=== PATIENT | female | born 1935 | race Caucasian/White ===

== ENCOUNTER → 2017-10-16 12:48 | Outpatient (CLI) | payer MEDICARE, MEDICAID, SELFPAY ==
--- NOTE | 2017-10-16 | DI.RAD.S_ITS ---
PROCEDURE: XR THORACIC SPINE 2V INDICATIONS: hx of breast cancer, upper back pain TECHNIQUE: 2 views of the thoracic spine were acquired. COMPARISON: None. FINDINGS: Bones: No fracture or focal osseous destruction. There is diffuse endplate sclerosis and degenerative spurring. Multilevel facet arthropathy. Soft tissues: No paravertebral stripe thickening. IMPRESSION: No fracture. Diffuse degenerative changes as above. Dictated by: Willie Scott M.D. on 10/16/2017 at 14:14 Approved by: Willie Scott M.D. on 10/16/2017 at 14:15
== END ==
PROVIDERS: Family Provider Physician Assistant; PCP Physician Assistant; Visit Provider Internal Medicine
DX: M47.814 Spondylosis without myelopathy or radiculopathy, thoracic region (principal); M54.6 Pain in thoracic spine; Z85.3 Personal history of malignant neoplasm of breast
CPT/HCPCS: 72070

== ENCOUNTER → 2018-01-13 10:41 | Outpatient (CLI) | payer MEDICARE, MEDICAID, SELFPAY ==
--- NOTE | 2018-01-13 | DI.CT.S_ITS ---
PROCEDURE: CT HEAD/BRAIN W CON INDICATIONS: Malignant neoplasm of breast TECHNIQUE: 4.5 mm thick angled axial sections acquired from the foramen magnum to the vertex after the administration of intravenous contrast, with coronal and sagittal reformats. For radiation dose reduction, the following was used: automated exposure control, adjustment of mA and/or kV according to patient size. COMPARISON: [facility], CT, CT CHEST ABD PEL W CON, 01/13/2018, 12:02. FINDINGS: Image quality: Excellent. CSF Spaces: Basal cisterns are patent. No extra-axial fluid collections. Ventricles are normal in size and shape. Brain: No midline shift. No large intracranial bleeds. No enhancing masses can be seen. No abnormal intracranial enhancement. Humphreys-white interface appears normal. Skull and face: Calvarium and visualized facial bones appear intact, without suspicious lesions. Sinuses: Visualized sinuses and mastoids are clear. IMPRESSION: No masses or abnormal enhancement can be seen. Dictated by: Yaakov Woods M.D. on 01/13/2018 at 11:58 Approved by: Yaakov Woods M.D. on 01/13/2018 at 11:59
--- NOTE | 2018-01-13 | DI.CT.S_ITS ---
PROCEDURE: CT CHEST ABD PEL W CON INDICATIONS: Malignant neoplasm of breast TECHNIQUE: After the administration of oral and intravenous contrast, 5 mm thick sections acquired from the lung apices to the symphysis. 5 mm coronal and sagittal reformats were performed, with additional 7 mm coronal MIP reformats through the lungs. For radiation dose reduction, the following was used: automated exposure control, adjustment of mA and/or kV according to patient size. COMPARISON: [facility], CT, ABDOMEN/PELVIS WITH CONTRAST, 04/01/2017, 15:32. [facility], CT, PE STUDY (CTA CHEST), 04/01/2017, 15:32. FINDINGS: Image quality: Excellent. CHEST: Lungs and pleura: The previously seen nodular and spiculated mass within the right upper lobe posteriorly has increased slightly in size, measuring 28 mm diameter. There is a new subpleural nodule within the right upper lobe anteriorly measuring 10 mm diameter. Compressive atelectasis within the right lower lobe is present. Previously seen right lung base nodule is not seen on the current examination. Previously seen right middle lobe nodule is not seen on the current examination. Left lung is clear. There is a new moderate right pleural effusion. No pneumothorax. Central and peripheral airways appear patent and normal in caliber. Mediastinum: Heart size is normal. No pericardial effusion. No mediastinal or hilar adenopathy by size criteria. Thoracic aorta and central pulmonary arteries are normal in size. Esophagus is normal in caliber. No hiatal hernia. Chest wall: No axillary or supraclavicular adenopathy by size criteria. Thyroid gland is within normal limits. ABDOMEN: Solid organs: Liver is normal in size and enhancement. Gallbladder demonstrates calculi within its lumen, as before. Biliary system is non dilated. Pancreas enhances normally. Spleen is normal in size and enhancement. No adrenal nodules. Kidneys demonstrate normal size and enhancement, without hydronephrosis. Peritoneum and bowel: Bowel loops demonstrate normal wall thickness and caliber. No free fluid or air. Nodes and vessels: No retroperitoneal or mesenteric adenopathy by size criteria. Aorta and inferior vena cava are normal in size. Miscellaneous: No ventral hernias. PELVIS: Genitourinary: Bladder wall thickness is normal. Calcification within the anterior and posterior uterus is present, as before. Miscellaneous: No inguinal hernias or adenopathy. Bones: No change in in sclerotic foci within the T6 and T7 vertebral bodies. No change in small sclerotic foci within the inferior L2, superior L3, and inferior L3 end plates. No change in slightly expansile 25 mm lucency within the left intertrochanteric femur/femoral neck, which is indeterminate. No vertebral body compression fractures. IMPRESSION: 1. Progressive metastatic disease to the right upper lobe. 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 2. No evidence of metastatic disease to the soft tissues of the abdomen, nor pelvis. 3. No change in thoracolumbar spinal sclerotic foci, consistent with metastatic disease. 4. Possible lytic left femoral neck metastasis, which is at risk for pathologic fracture. This could be further assessed with MRI with and without intravenous contrast, if clinically indicated. Dictated by: Jonatan Browne M.D. on 01/13/2018 at 13:49 Approved by: Jonatan Browne M.D. on 01/13/2018 at 13:58
[2018-01-13 11:20] LABS: BUN Creatinine Ratio 21.4 (6-22); Blood Urea Nitrogen 15 mg/dL (7-17); Calcium 9.5 mg/dL (8.4-10.2); Carbon Dioxide 31 mmol/L (22-32); Chloride 101 mmol/L (98-107); Estimated Glomerular Filt Rate > 60.0 mL/min (>60); Glucose 102 mg/dL (80-110); HEMOLYSIS < 15 (0-50); Potassium 4.3 mmol/L (3.4-5.1); Sodium 139 mmol/L (137-145)
== END ==
PROVIDERS: Family Provider Physician Assistant; PCP Physician Assistant; Visit Provider Internal Medicine Medical Oncology
DX: C50.919 Malignant neoplasm of unspecified site of unspecified female breast (principal)
CPT/HCPCS: 36415; 70460; 71260; 74177; 80048; Q9967

== ENCOUNTER 2018-02-13 13:24 | Emergency (ER) | payer MEDICARE, MEDICAID, SELFPAY ==
[2018-02-13] VITALS (9 sets, daily range): BP systolic 118–144; BP diastolic 53–88; PULSE 66–75; RESP 14–22; TEMP 36.6; O2SAT 92–100
--- NOTE | 2018-02-13 13:54 | DI.RAD.S_ITS ---
PROCEDURE: XR CHEST 2V INDICATIONS: pain in chest, hard to breathe TECHNIQUE: 2 views of the chest were acquired. COMPARISON: [facility], CT, CT CHEST ABD PEL W CON, 01/13/2018, 12:02. FINDINGS: Surgical changes and devices: None. Lungs and pleura: Right lower lobe consolidation suspicious for pneumonia. Small moderate right pleural effusion is present. No pleural effusions or pneumothorax. Mediastinum: Mediastinal contours are normal. Heart size is normal. Bones and chest wall: No suspicious bony abnormalities. Soft tissues appear unremarkable. IMPRESSION: 1. Suspect right lower lobe pneumonia. 2. Small to moderate right pleural effusion. Dictated by: Amelie Soliman M.D. on 02/13/2018 at 15:30 Approved by: Amelie Soliman M.D. on 02/13/2018 at 15:31
--- NOTE | 2018-02-13 13:54 | ED.CHESTPAIN ---
HPI - Chest Pain General Chief Complaint: Chest Pain Stated Complaint: PAIN IN CHEST, HARD TO BREATHE Time Seen by Provider: 02/13/18 13:45 Source: patient Mode of arrival: ambulatory Limitations: language barrier (daughter here for interpretation) History of Present Illness HPI narrative: Patient is an 80-year-old Salvadorean-speaking elderly female complaining of chest pain. She is here with her daughter who is her director of optimization. She does have a history of breast cancer she is followed down [facility]. She had right-sided pleural effusion with thoracentesis recently. She fell a few days ago onto the grass on the right side and is complaining of more pain and discomfort. She has pain all over her back as well going down arm. No chest pain no shortness of breath no heart palpitations she has not had any fever. Related Data Home Medications Medication Instructions Recorded Confirmed capecitabine 2,000 mg PO DAILY 02/13/18 02/13/18 Previous Rx's Medication Instructions Recorded hydrocodone-acetaminophen [Huxley] 1 tab PO Q6H PRN #10 tab 02/13/18 Allergies Allergy/AdvReac Type Severity Reaction Status Date / Time Penicillins [PENICILLINS] Allergy Unknown Verified 02/13/18 14:16 Review of Systems Review of Systems All systems reviewed & are unremarkable except as noted in HPI and below Constitutional Denies chills, Denies fever(s), Denies lethargy and Denies weakness Cardiovascular Reports as per HPI Respiratory Reports as per HPI Gastrointestinal Gastrointestinal: Denies abdominal pain, Denies change in bowel habits, Denies diarrhea, Denies nausea and Denies vomiting Musculoskeletal Denies back pain, Denies muscle weakness, Denies numbness and Denies tingling Integumentary/Breasts Denies pruritus, Denies erythema, Denies rash and Denies wounds Neurologic Denies numbness, Denies tingling and Denies weakness PFSH Medical History Breast cancer (Acute) Social History Smoking Status: Never smoker alcohol intake: never substance use type: does not use Exam Initial Vital Signs Initial Vital Signs: Vital Signs Temperature 97.8 F 02/13/18 13:25 Pulse Rate 75 02/13/18 13:25 Respiratory Rate 20 02/13/18 13:25 Blood Pressure 144/88 H 02/13/18 13:25 Pulse Oximetry 100 02/13/18 13:25 GENERAL: Pleasant elderly female alert and oriented no acute distress HEENT: Head atraumatic,EOMI, pupils reactive, face symmetric, CARDIOVASCULAR: Regular rate and rhythm without murmurs, rubs or gallops. RESPIRATORY: Decreased breath sounds on right base is no wheezing rales or rhonchi no respiratory distress ABDOMEN: Soft, nontender. Normoactive bowel sounds all 4 quadrants. No guarding or rebound. BACK: Mild midline thoracic pain EXTREMITIES: Normal range of motion, no clubbing or edema. Neurovascularly intact NEUROLOGICAL: Alert and oriented x4.Normal gait and speech. Cranial nerves II through XII grossly intact. [Good [id number]-huil, good [id number], strength equal bilaterally, no dysarthria or aphasia, sensation in tact to soft touch bilaterally, no visual changes, no facial droop] SKIN: Warm, dry, no laceration, no petechiae, no rashes or lesions. Course Orders Ordered: ED Orders 02/13/18 13:54 XR chest 2V Stat 02/13/18 13:55 B Type Natriuretic Peptide Stat Complete Blood Count AUTO DIFF Stat Comprehensive Metabolic Panel Stat Lipase Stat Troponin & CK Cardiac Panel Stat 02/13/18 15:05 CT angio chest PE protocol Stat Discontinued Medications Sodium Chloride (Normal Saline 0.9%) 1,000 mls @ 150 mls/hr IV CONT MAC Last Admin: 02/13/18 14:18 Dose: 150 mls/hr Morphine Sulfate (Morphine) 2 mg IV NOW ONE Stop: 02/13/18 14:00 Last Admin: 02/13/18 14:18 Dose: 2 mg Vital Signs - 8 hr 02/13/18 13:25 02/13/18 13:45 02/13/18 14:27 Temperature 97.8 F Pulse Rate 75 71 72 Respiratory Rate 20 22 17 Blood Pressure 144/88 H Blood Pressure [Left Arm] 144/88 H 130/60 Pulse Oximetry 100 97 97 02/13/18 14:30 02/13/18 15:05 02/13/18 15:21 Temperature Pulse Rate 72 70 67 Respiratory Rate 18 22 18 Blood Pressure Blood Pressure [Left Arm] 129/66 133/60 133/60 Pulse Oximetry 95 95 92 02/13/18 15:53 02/13/18 16:17 02/13/18 16:30 Temperature Pulse Rate 68 66 73 Respiratory Rate 17 14 20 Blood Pressure Blood Pressure [Left Arm] 135/59 L 129/53 L 118/56 L Pulse Oximetry 97 94 97 MDM - Chest Pain Lab Data Attestation: I reviewed the patient's lab results. Result diagrams: 02/13/18 13:55 02/13/18 13:55 Lab Results 02/13/18 02/13/18 Range/Units 13:55 13:55 WBC 5.3 (4.5-11.0) X10^3/uL RBC 3.59 L (4.0-5.2) X10^6/uL Hgb 12.5 (12.0-16.0) g/dL Hct 36.5 (36-46) % MCV 101.6 H (80-100) fL MCH 34.8 H (26-34) PG MCHC 34.2 (30-36) % RDW 16.2 H (11.6-14.8) % Plt Count 152 (150-400) X10^3/uL Neut % (Auto) 66.7 (50-75) % Lymph % (Auto) 25.0 (25-40) % [place] % (Auto) 5.8 (3-14) % Eos % (Auto) 1.5 L (2-4) % Baso % (Auto) 1.0 (0-2) % Neut # (Auto) 3600 (0745-2860) /uL Sodium 141 (137-145) mmol/L Potassium 4.3 (3.4-5.1) mmol/L Chloride 105 (98-107) mmol/L Carbon Dioxide 27 (22-32) mmol/L BUN 17 (7-17) mg/dL Creatinine 0.70 (0.52-1.04) mg/dL Estimated GFR > 60.0 (>60) mL/min BUN/Creatinine Ratio 24.3 H (6-22) Glucose 124 H (80-110) mg/dL Calcium 9.3 (8.4-10.2) mg/dL Total Bilirubin 1.0 (0.2-1.3) mg/dL AST 22 (14-36) IU/L ALT 19 (9-52) IU/L Alkaline Phosphatase 65 (38-126) U/L Total Creatine Kinase 41 (30-135) U/L CK-MB (CK-2) TNP CK-MB (CK-2) Rel Index TNP Troponin I < 0.012 (0.01-0.034) ng/mL B-Natriuretic Peptide 71.8 (<100) Total Protein 6.4 (6.3-8.2) g/dL Albumin 4.1 (3.5-5.0) g/dL Globulin 2.3 (1.7-4.1) g/dL Albumin/Globulin Ratio 1.8 (1.0-2.8) Lipase 18 L (23-300) U/L Urine Dip Bedside Urine Glucose Negative Bedside Urine Bilirubin - Negative Bedside Urine Ketone - Negative Urine Specific Coleman 1.015 Bedside Urine Occult Blood - Negative Bedside Urine pH 6.0 Bedside Urine Protein - Negative Bedside Urine Urobilinogen - Negative Bedside Urine Nitrite - Negative Bedside Urine Leukocytes - Negative Esterase Imaging Data Chest CTA: Radiologist's impression: [address] [address] [address] Scan Report Signed Patient: Yuly Nash#: [id number] : 5Acct:[id number] Age/Sex: 83 / FDate of Service: 02/13/18 Loc: ED Accession Number: [id number] Procedure: CT angio chest PE protocol Ordering Provider: Stacy Love D.O. PROCEDURE: CT ANGIO CHEST PE PROTOCOL INDICATIONS: left sided chest pain, sob, breast ca TECHNIQUE: After the administration of intravenous contrast, 2 mm thick sections acquired from the pulmonary apices to the posterior costophrenic angles. 3-dimensional maximum intensity projection (MIP) coronal and sagittal reformats were then acquired through the thorax. For radiation dose reduction, the following was used: automated exposure control, adjustment of mA and/or kV according to patient size. COMPARISON: [facility], CT, ABDOMEN/PELVIS WITH CONTRAST, 04/01/2017, 15:32. [facility], CT, PE STUDY (CTA CHEST), 04/01/2017, 15:32. [facility], CR, XR CHEST 2V, 02/13/2018, 13:57. [facility], CR, CHEST 2 VIEW, 04/29/2017, 13:11. [facility], CT, CT CHEST ABD PEL W CON, 01/13/2018, 12:02. FINDINGS: Image quality: Excellent. Pulmonary arteries: Pulmonary arteries are normal in size, and demonstrate no intraluminal filling defects to suggest central pulmonary embolism. Lungs and pleura: There is a moderate-sized right pleural effusion, minimally changed compared to 01/13/2018. There is right basilar atelectasis. There is pleural thickening and nodularity in the right hemithorax, minimally increased. There is a 2.8 cm mass in the right upper lobe posterior medially, unchanged. A 9 mm subpleural nodule in the anterior right upper lobe, also unchanged. There are a couple of 6-7 mm calcified subpleural nodule in the right upper lobe and lingula. No pneumothorax. Central and peripheral airways are patent. Mediastinum: Heart size is normal, without pericardial effusion. No mediastinal or hilar adenopathy. Thoracic aorta is normal in caliber and enhancement. Esophagus is normal in caliber, without hiatal hernia. Bones and chest wall: Sclerotic bone lesions involving T6, T7, and the right sixth rib are again noted, unchanged. Thyroid gland normal. No axillary or supraclavicular adenopathy. Abdomen: Visualized upper abdominal solid organs appear normal in the early arterial phase of enhancement. There is a gallstone. IMPRESSION: 1. No evidence for central pulmonary embolism. 2. Moderate right pleural effusion and right pleural thickening/nodularity compatible with pleural metastasis. Overall, there is minimally changed from 01/13/2018. 3. Stable right upper lobe lobe mass. 5. Stable metastatic bone lesions involving the thoracic spine and the right sixth rib. 6. Cholelithiasis. Chest x-ray: Radiologist's impression: 1. Suspect right lower lobe pneumonia. 2. Small to moderate right pleural effusion Dr. Jung Soliman ECG Data Attestation: I personally reviewed and interpreted this ECG as follows: Prior ECG tracings: not available for review Interpretation: Sinus rhythm rate [address] changes or T-wave inversions MDM Narrative Medical decision making narrative: I discussed CT results with patient and daughter. They were unaware that his metastasis to bone. However compared to CT in December this remains stable. She does have some progression of the right upper lobe. At this time recommend pain control and follow-up with Oncology. She has an appointment 02/22/2018. She has tolerated morphine and has seemed to help her tremendously. Discharge Plan Departure Patient Disposition: Home Clinical Impression: Pleural effusion on right, Metastatic breast cancer Discharge Date/Time: 02/13/18 17:00 Interventions: ED Discharge Assessment Last Done: 02/13/18 17:00 Instructions: Pleural Effusion Activity Restrictions/Additional Instructions: *You have been diagnosed with metastatic breast cancer *What to do: You do have spots in your back and right lung *Continue to take medications as directed -Huxley half to 1 full tablet every 6 hr if needed for *Follow up with your primary care provider in 2-3 days, follow up with Oncology as previously scheduled *Return to ER if you should have increasing pain, shortness of breath or any new, worsening or concerning symptoms CONTROLLED SUBSTANCE DISCHARGE (Narcotoic/benzodiazepine/Flexeril/Phenergan) 1. You have been prescribed narcotic medications, it does have acetaminophen/Tylenol/paracetamol in it so do not take extra Tylenol or Tylenol containing products 2. Please understand that we cannot provide further refills of narcotics, benzodiazepines or controlled substances through the ED and her pain management will need to be through your provider. 3. While on these medications you cannot drive or operate heavy machinery. 4. You cannot sign legal documents or perform any duties such as this. 5. As long as you're taking opiate pain medications he should also be taking a stool softener such as Colace, Dulcolax, MiraLAX or prune juice, to help avoid constipation. Prescriptions: New hydrocodone-acetaminophen [Huxley] 5-325 mg tablet 1 tab PO Q6H PRN (Reason: pain) Qty: 10 RF: 0 No Action capecitabine capsule 2,000 mg PO DAILY RF: 0 Referrals: Patricia Dallas PA-C [Primary Care Provider] -
--- NOTE | 2018-02-13 14:03 | PC.NURSE ---
hx of right breast cancer, had thoracentesis jan 28, then pt had a fall a week ago, pt now here worsening shortness of breath, worsen when laying down to the right side, with chronic cough for a year.
[2018-02-13 14:05] LABS: Add Manual Diff / Slide Review NO; Eosinophils Percent Auto 1.5 % (2-4); Hematocrit 36.5 % (36-46); Hemoglobin 12.5 g/dL (12.0-16.0); Mean Corpuscular HGB Conc 34.2 % (30-36); Mean Corpuscular Hemoglobin 34.8 PG (26-34); Mean Corpuscular Volume 101.6 fL (80-100); Monocytes Percent Auto 5.8 % (3-14); Neutrophils Absolute Auto 3600 /uL (3000-5900); Neutrophils Percent Auto 66.7 % (50-75); Platelet Count 152 X10^3/uL (150-400); Red Blood Cell Count 3.59 X10^6/uL (4.0-5.2); Red Cell Distribution Width 16.2 % (11.6-14.8); White Blood Cell Count 5.3 X10^3/uL (4.5-11.0)
[2018-02-13 14:16] LABS: Alanine Aminotransferase 19 IU/L (9-52); Albumin 4.1 g/dL (3.5-5.0); Albumin Globulin Ratio 1.8 (1.0-2.8); Alkaline Phosphatase 65 U/L (38-126); Aspartate Aminotransferase 22 IU/L (14-36); BUN Creatinine Ratio 24.3 (6-22); Blood Urea Nitrogen 17 mg/dL (7-17); Calcium 9.3 mg/dL (8.4-10.2); Carbon Dioxide 27 mmol/L (22-32); Chloride 105 mmol/L (98-107); Creatine Kinase 41 U/L (30-135); Estimated Glomerular Filt Rate > 60.0 mL/min (>60); Globulin 2.3 g/dL (1.7-4.1); Glucose 124 mg/dL (80-110); HEMOLYSIS < 15 (0-50); Lipase 18 U/L (23-300); Potassium 4.3 mmol/L (3.4-5.1); Sodium 141 mmol/L (137-145); Total Protein 6.4 g/dL (6.3-8.2)
[2018-02-13] MEDS: MORPHINE 2 MG/ML INJ IV (14:18)
[2018-02-13] MEDS: SODIUM CHLORIDE 0.9% 1,000 ML 150 ML IV (14:18)
--- NOTE | 2018-02-13 14:27 | PC.NURSE ---
medicated for upper back discomfort. grand daughter at [employer] for translating uzbek.
[2018-02-13 14:28] LABS: Troponin I < 0.012 ng/mL (0.01-0.034)
[2018-02-13 14:31] LABS: B Type Natriuretic Peptide 71.8 (<100)
--- NOTE | 2018-02-13 15:05 | DI.CT.S_ITS ---
PROCEDURE: CT ANGIO CHEST PE PROTOCOL INDICATIONS: left sided chest pain, sob, breast ca TECHNIQUE: After the administration of intravenous contrast, 2 mm thick sections acquired from the pulmonary apices to the posterior costophrenic angles. 3-dimensional maximum intensity projection (MIP) coronal and sagittal reformats were then acquired through the thorax. For radiation dose reduction, the following was used: automated exposure control, adjustment of mA and/or kV according to patient size. COMPARISON: [facility], CT, ABDOMEN/PELVIS WITH CONTRAST, 04/01/2017, 15:32. [facility], CT, PE STUDY (CTA CHEST), 04/01/2017, 15:32. [facility], CR, XR CHEST 2V, 02/13/2018, 13:57. [facility], CR, CHEST 2 VIEW, 04/29/2017, 13:11. [facility], CT, CT CHEST ABD PEL W CON, 01/13/2018, 12:02. FINDINGS: Image quality: Excellent. Pulmonary arteries: Pulmonary arteries are normal in size, and demonstrate no intraluminal filling defects to suggest central pulmonary embolism. Lungs and pleura: There is a moderate-sized right pleural effusion, minimally changed compared to 01/13/2018. There is right basilar atelectasis. There is pleural thickening and nodularity in the right hemithorax, minimally increased. There is a 2.8 cm mass in the right upper lobe posterior medially, unchanged. A 9 mm subpleural nodule in the anterior right upper lobe, also unchanged. There are a couple of 6-7 mm calcified subpleural nodule in the right upper lobe and lingula. No pneumothorax. Central and peripheral airways are patent. Mediastinum: Heart size is normal, without pericardial effusion. No mediastinal or hilar adenopathy. Thoracic aorta is normal in caliber and enhancement. Esophagus is normal in caliber, without hiatal hernia. Bones and chest wall: Sclerotic bone lesions involving T6, T7, and the right sixth rib are again noted, unchanged. Thyroid gland normal. No axillary or supraclavicular adenopathy. Abdomen: Visualized upper abdominal solid organs appear normal in the early arterial phase of enhancement. There is a gallstone. IMPRESSION: 1. No evidence for central pulmonary embolism. 2. Moderate right pleural effusion and right pleural thickening/nodularity compatible with pleural metastasis. Overall, there is minimally changed from 01/13/2018. 3. Stable right upper lobe lobe mass. 5. Stable metastatic bone lesions involving the thoracic spine and the right sixth rib. 6. Cholelithiasis. Dictated by: Amelie Soliman M.D. on 02/13/2018 at 15:54 Approved by: Amelie Soliman M.D. on 02/13/2018 at 16:13
--- NOTE | 2018-02-17 10:46 | PC.NURSE ---
late note, iv stopped at 1700, infused 300ml NS.
== END 2018-02-13 17:00 | disposition home or self-care (01) ==
PROVIDERS: Emergency Provider Emergency Medicine; Family Provider Physician Assistant; PCP Physician Assistant
DX: J90 Pleural effusion, not elsewhere classified (principal); C50.919 Malignant neoplasm of unspecified site of unspecified female breast
CPT/HCPCS: 36591; 71046; 71275; 80053; 81003; 82550; 83690; 83880; 84484; 85025; 93005; 96361; 96374; 99285; J2270; Q9967

== ENCOUNTER 2018-04-01 13:08 | Emergency (ER) | payer MEDICARE, MEDICAID, SELFPAY ==
[2018-04-01] VITALS (7 sets, daily range): BP systolic 132–157; BP diastolic 56–82; PULSE 70–77; RESP 16–23; TEMP 36.2–36.3; O2SAT 93–100
--- NOTE | 2018-04-01 | DI.RAD.S_ITS ---
PROCEDURE: XR CHEST 1V INDICATIONS: POST THORACENTEIS TECHNIQUE: One view of the chest was acquired. COMPARISON: [facility], CR, XR CHEST 2V, 04/01/2018, 13:34. [facility], CR, XR CHEST 2V, 02/13/2018, 13:57. FINDINGS: Surgical changes and devices: None. Lungs and pleura: A moderately large right pleural effusion has improved after thoracentesis, and there is a mild subpulmonic right effusion remaining. Lung base atelectasis and/or alveolar consolidation by pneumonia appears present.. Mediastinum: Mediastinal contours appear normal. Heart size is normal. Bones and chest wall: No suspicious bony lesions. Overlying soft tissues appear unremarkable. IMPRESSION: Significant reduction in size of a relatively large right pleural effusion after thoracentesis, without pneumothorax. Mild residual pleural fluid in the subpulmonic space. Right lower lobe atelectasis and/or pneumonia. Dictated by: Duran Jerez M.D. on 04/01/2018 at 16:52 Approved by: Duran Jerez M.D. on 04/01/2018 at 16:54
--- NOTE | 2018-04-01 13:27 | ED.CHESTPAIN ---
HPI - Chest Pain General Chief Complaint: Chest Pain Stated Complaint: CHEST PRESSURE Time Seen by Provider: 04/01/18 13:26 Source: patient and family Mode of arrival: ambulatory Limitations: language barrier History of Present Illness HPI narrative: Patient is an 83-year-old female. Is [place]-speaking only. Her granddaughter who is also her ski molder is at bedside and provided translation services. The patient does have a history of breast cancer. Is currently receiving oral chemotherapy. Has had 2 prior pulmonary effusions which the granddaughter states they have been told is from her metastatic breast cancer. Her last thoracentesis was approximately 2 months ago. She states that for the past several days his has worsening shortness of breath Related Data Home Medications Medication Instructions Recorded Confirmed capecitabine 2,000 mg PO DAILY 02/13/18 04/01/18 albuterol sulfate [Ventolin HFA] 2 puff INHALATION Q4H 04/01/18 04/01/18 exemestane 25 mg PO DAILY 04/01/18 04/01/18 palbociclib [Ibrance] 04/01/18 Allergies Allergy/AdvReac Type Severity Reaction Status Date / Time Penicillins [PENICILLINS] Allergy Unknown Verified 02/13/18 14:16 Review of Systems Constitutional Denies fever(s) and Denies headache(s) ENT Ears, Nose, Mouth, and Throat: Denies headache(s) Cardiovascular Denies chest pain and Reports dyspnea Respiratory Denies pain on inspiration, Reports dyspnea and Denies wheezing Gastrointestinal Gastrointestinal: Denies abdominal pain, Denies nausea and Denies vomiting Musculoskeletal Denies myalgias and Denies arthralgias Integumentary/Breasts Denies rash Neurologic Denies headache(s) Hematologic/Lymphatic Comments: Not on anticoagulation Allergic/Immunologic Denies wheezing PFSH Medical History Breast cancer (Acute) Social History Smoking Status: Never smoker alcohol intake: never substance use type: does not use Exam Initial Vital Signs Initial Vital Signs: Vital Signs Temperature 97.4 F L 04/01/18 13:20 Pulse Rate 72 04/01/18 13:20 Respiratory Rate 20 04/01/18 13:20 Blood Pressure 144/82 H 04/01/18 13:20 Pulse Oximetry 95 04/01/18 13:20 Const General: cooperative, well developed, well groomed and No acute distress Orientation: alert, awake and oriented x3 HENMT Head: normal to inspection and normocephalic Resp Effort & Inspection: not labored, no stridor and tachypneic Auscultation: other (Absent breath sounds right lower lung field) Cardio Rate: regular rate Rhythm: regular rhythm Skin Lesions: no lesions Rashes: no rashes Neuro General: alert, awake and oriented x3 Extrem General: normal to inspection and capillary refill normal Psych Appearance: grossly normal and well kempt Course Orders Ordered: ED Orders 04/01/18 13:20 EKG-12 Lead Stat 04/01/18 13:27 XR chest 2V Stat 04/01/18 13:42 B Type Natriuretic Peptide Stat Basic Metabolic Panel Stat Complete Blood Count AUTO DIFF Stat Partial Thromboplastin Time Stat Prothrombin Time INR Stat Troponin I Stat 04/01/18 14:15 US thoracentesis Stat Vital Signs - 8 hr 04/01/18 13:20 04/01/18 13:30 04/01/18 14:01 Temperature 97.4 F L 97.4 F L Pulse Rate 72 76 76 Respiratory Rate 20 23 23 Blood Pressure 144/82 H 144/82 H Blood Pressure [Left Arm] 139/82 Pulse Oximetry 95 93 93 04/01/18 15:06 04/01/18 15:32 04/01/18 16:27 Temperature 97.2 F L Pulse Rate 74 70 77 Respiratory Rate 22 23 21 Blood Pressure Blood Pressure [Left Arm] 150/61 H 157/73 H 147/56 H Pulse Oximetry 96 95 100 MDM - Chest Pain Lab Data Attestation: I reviewed the patient's lab results. Result diagrams: 04/01/18 13:42 04/01/18 13:42 Lab Results 04/01/18 04/01/18 04/01/18 Range/Units 13:42 13:42 13:42 WBC 1.8 L* (4.5-11.0) X10^3/uL RBC 3.44 L (4.0-5.2) X10^6/uL Hgb 11.6 L (12.0-16.0) g/dL Hct 34.4 L (36-46) % MCV 100.0 (80-100) fL MCH 33.8 (26-34) PG MCHC 33.8 (30-36) % RDW 15.3 H (11.6-14.8) % Plt Count 102 L (150-400) X10^3/uL Neut % (Auto) Not Reportable Lymph % (Auto) Not Reportable [place] % (Auto) Not Reportable Eos % (Auto) Not Reportable Baso % (Auto) Not Reportable Total Counted 100 Seg Neutrophils % 31.0 L (38-70) % Band Neutrophils % 2.0 L (3-7) % Lymphocytes % (Manual) 45.0 (25-45) % Atypical Lymphs % 18.0 H ( - 0) % Monocytes % (Manual) 4.0 (2-11) % Neutrophils # (Manual) 594 L (3812-0624) /uL RBC Morphology Not Reportable Macrocytosis 2+ H Ovalocytes 1+ H PT 11.0 (10.1-12.7) SECONDS INR 1.0 (0.9-1.3) APTT 29 (26.4-36.2) SECONDS Sodium 139 (137-145) mmol/L Potassium 4.0 (3.4-5.1) mmol/L Chloride 103 (98-107) mmol/L Carbon Dioxide 28 (22-32) mmol/L BUN 13 (7-17) mg/dL Creatinine 0.80 (0.52-1.04) mg/dL Estimated GFR > 60.0 (>60) mL/min BUN/Creatinine Ratio 16.3 (6-22) Glucose 110 (80-110) mg/dL Calcium 9.5 (8.4-10.2) mg/dL Troponin I < 0.012 (0.01-0.034) ng/mL B-Natriuretic Peptide < 100 (<100) Imaging Data Chest x-ray: Radiologist's impression: PROCEDURE: XR CHEST 2V INDICATIONS: SOB TECHNIQUE: 2 views of the chest were acquired. COMPARISON: [facility], XR CHEST 2V, 02/13/2018, 13:57. [facility], CHEST 2 VIEW, 04/29/2017, 13:11. FINDINGS: Surgical changes and devices: None. Lungs and pleura: No pneumothorax. Lungs are abnormal, with a dense alveolar consolidation at the mid and lower right hemithorax, associated with what appears to be a moderate subpulmonic right pleural effusion. Mediastinum: Mediastinal contours are normal. Heart size is normal. Bones and chest wall: No suspicious bony abnormalities. Soft tissues appear unremarkable. IMPRESSION: Moderate subpulmonic right pleural effusion, right mid and lower lung atelectasis and/or pneumonia. The amount of pleural fluid has slightly increased from mid January of this year. Dictated by: Duran Jerez M.D. on 04/01/2018 at 13:52 Approved by: Duran Jerez M.D. on 04/01/2018 at 13:59 Repeat CXR: Radiologist's impression: PROCEDURE: XR CHEST 1V INDICATIONS: POST THORACENTEIS TECHNIQUE: One view of the chest was acquired. COMPARISON: [facility], CR, XR CHEST 2V, 04/01/2018, 13:34. [facility], CR, XR CHEST 2V, 02/13/2018, 13:57. FINDINGS: Surgical changes and devices: None. Lungs and pleura: A moderately large right pleural effusion has improved after thoracentesis, and there is a mild subpulmonic right effusion remaining. Lung base atelectasis and/or alveolar consolidation by pneumonia appears present.. Mediastinum: Mediastinal contours appear normal. Heart size is normal. Bones and chest wall: No suspicious bony lesions. Overlying soft tissues appear unremarkable. IMPRESSION: Significant reduction in size of a relatively large right pleural effusion after thoracentesis, without pneumothorax. Mild residual pleural fluid in the subpulmonic space. Right lower lobe atelectasis and/or pneumonia. Dictated by: Duran Jerez M.D. on 04/01/2018 at 16:52 Approved by: Duran Jerez M.D. on 04/01/2018 at 16:54 ECG Data Attestation: I personally reviewed and interpreted this ECG as follows: Prior ECG tracings: not available for review Interpretation: Sinus rhythm Normal axis Normal QRS Normal QTC Ventricular rate is [address] T wave changes MDM Narrative Medical decision making narrative: patient does have a low white blood cell count but is currently undergoing chemotherapy. She is not having any fevers. Has right-sided pleural effusion. Her granddaughter states that this has been evaluated in the suspect is secondary to metastasis. I was able to set up a thoracentesis out of the emergency department. This was done by Radiology. 1100 cc of fluid removed. Patient states she feels better. Repeat chest x-ray shows improvement. She was given return precautions. Will hold on further workup for now. Patient is asking to go home. Discharge Plan Departure Patient Disposition: Home Clinical Impression: Pleural effusion Instructions: DI for Pleural Effusion Activity Restrictions/Additional Instructions: I recommend you contact her oncologist for a follow-up. Continue all medications as directed. Return to the emergency department for any new or worsening symptoms Prescriptions: No Action capecitabine 500 mg Tablet 2,000 mg PO DAILY RF: 0 albuterol sulfate [Ventolin HFA] 90 mcg/actuation HFA aerosol inhaler 2 puff Inhalation Q4H RF: 0 exemestane 25 mg tablet 25 mg PO DAILY RF: 0 palbociclib [Ibrance] 125 mg capsule RF: 0
[2018-04-01 13:58] LABS: Hematocrit 34.4 % (36-46); Hemoglobin 11.6 g/dL (12.0-16.0); Mean Corpuscular HGB Conc 33.8 % (30-36); Mean Corpuscular Hemoglobin 33.8 PG (26-34); Platelet Count 102 X10^3/uL (150-400); Red Blood Cell Count 3.44 X10^6/uL (4.0-5.2); Red Cell Distribution Width 15.3 % (11.6-14.8)
[2018-04-01 14:01] LABS: Add Manual Diff / Slide Review YES; White Blood Cell Count 1.8 X10^3/uL (4.5-11.0)
[2018-04-01 14:07] LABS: PTT Partial Thromboplastin Tim 29 SECONDS (26.4-36.2)
[2018-04-01 14:12] LABS: HEMOLYSIS < 15 (0-50)
--- NOTE | 2018-04-01 14:15 | DI.US.S_ITS ---
PROCEDURE: US THORACENTESIS INDICATIONS: Right-sided pleural effusion TECHNIQUE: The indications, alternatives, benefits, risks, and complications of the procedure were explained to the patient. Written informed consent was obtained and placed in the chart. The chest was examined sonographically, and an appropriate site was chosen for thoracentesis. The skin was prepared and draped in the usual sterile fashion, and 1% lidocaine was infiltrated from the skin down through the pleural surface. A 19-gauge catheter-covered needle was then introduced into the pleural space, the catheter was advanced and the needle was withdrawn, and thereafter pleural fluid was aspirated. The catheter was then removed and a dressing was applied. COMPARISON: , CR, XR CHEST 2V, 04/01/2018, 13:34. , CR, XR CHEST 1V, 04/01/2018, 16:10. FINDINGS: Access site: Right hemithorax. Needle: One-Step centesis catheter with introducer needle. Fluid volume and description: 1100 cc of serous fluid Fluid sent for diagnostic testing: Not requested Medications: 1% lidocaine for local anaesthesia. Complications: None; post-procedural chest radiograph is pending to assess for pneumothorax. IMPRESSION: Successful ultrasound-guided thoracentesis. Dictated by: Willie Scott M.D. on 04/01/2018 at 16:59 Approved by: Willie Scott M.D. on 04/01/2018 at 17:00
[2018-04-01 14:19] LABS: BUN Creatinine Ratio 16.3 (6-22); Blood Urea Nitrogen 13 mg/dL (7-17); Calcium 9.5 mg/dL (8.4-10.2); Carbon Dioxide 28 mmol/L (22-32); Chloride 103 mmol/L (98-107); Estimated Glomerular Filt Rate > 60.0 mL/min (>60); Glucose 110 mg/dL (80-110); Sodium 139 mmol/L (137-145)
[2018-04-01 14:26] LABS: B Type Natriuretic Peptide < 100 (<100)
[2018-04-01 14:31] LABS: Neutrophils Absolute Manual 594 /uL (3000-5900); Total Cells Counted 100
[2018-04-01 14:32] LABS: Macrocytosis 2+; Ovalocytes 1+; Troponin I < 0.012 ng/mL (0.01-0.034)
--- NOTE | 2018-04-01 16:29 | PC.NURSE ---
Patient returned from US procedure. Pt reports improved breathing post thorocentisis. Lung sounds improved on right side. fine crackles audible in lower right lobe. o2sat 100% RA. 1100 of fluid obtained.
== END 2018-04-01 17:11 | disposition home or self-care (01) ==
PROVIDERS: Emergency Provider Emergency Medicine; Family Provider Physician Assistant; PCP Physician Assistant
DX: J90 Pleural effusion, not elsewhere classified (principal)
CPT/HCPCS: 32555; 36591; 71045; 71046; 80048; 83880; 84484; 85025; 85610; 85730; 93005; 93041; 99283; 99285

== ENCOUNTER → 2018-04-05 10:54 | Outpatient (CLI) | payer MEDICARE, MEDICAID, SELFPAY ==
[2018-04-05 12:04] LABS: Add Manual Diff / Slide Review NO; Basophils Percent Auto 0.8 % (0-2); Eosinophils Percent Auto 0.4 % (2-4); Hematocrit 33.6 % (36-46); Hemoglobin 11.7 g/dL (12.0-16.0); Lymphocytes Percent Auto 49.7 % (25-40); Mean Corpuscular HGB Conc 34.8 % (30-36); Mean Corpuscular Hemoglobin 34.8 PG (26-34); Monocytes Percent Auto 9.2 % (3-14); Neutrophils Absolute Auto 800 /uL (1500-7000); Neutrophils Percent Auto 39.9 % (50-75); Platelet Count 142 X10^3/uL (150-400); Red Blood Cell Count 3.36 X10^6/uL (4.0-5.2); Red Cell Distribution Width 16.8 % (11.6-14.8)
== END ==
PROVIDERS: PCP Physician Assistant; Visit Provider Internal Medicine Medical Oncology
DX: C50.919 Malignant neoplasm of unspecified site of unspecified female breast (principal)
CPT/HCPCS: 36415; 85025

== ENCOUNTER → 2018-05-06 13:01 | Outpatient (CLI) | payer MEDICARE, MEDICAID, SELFPAY ==
--- NOTE | 2018-05-06 | DI.US.S_ITS ---
PROCEDURE: US THORACENTESIS INDICATIONS: MALIGNANT PLEURAL EFFUSION TECHNIQUE: The indications, alternatives, benefits, risks, and complications of the procedure were explained to the patient. Written informed consent was obtained and placed in the chart. The chest was examined sonographically, and an appropriate site was chosen for thoracentesis. The skin was prepared and draped in the usual sterile fashion, and 1% lidocaine was infiltrated from the skin down through the pleural surface. A 19-gauge catheter-covered needle was then introduced into the pleural space, the catheter was advanced and the needle was withdrawn, and thereafter pleural fluid was aspirated. The catheter was then removed and a dressing was applied. COMPARISON: [facility], THORACENTESIS, 04/01/2018, 15:51. FINDINGS: Access site: Right hemithorax. Needle: One-Step centesis catheter with introducer needle. Fluid volume and description: 1200 mL Fluid sent for diagnostic testing: None Medications: 1% lidocaine for local anaesthesia. Complications: None; post-procedural chest radiograph is pending to assess for pneumothorax. IMPRESSION: Successful ultrasound-guided thoracentesis. Dictated by: Kevin Wilson M.D. on 05/06/2018 at 14:24 Approved by: Kevin Wilson M.D. on 05/06/2018 at 14:25
--- NOTE | 2018-05-06 | DI.RAD.S_ITS ---
PROCEDURE: XR CHEST 1V INDICATIONS: POST THORA TECHNIQUE: One view of the chest was acquired. COMPARISON: [facility], CR, XR CHEST 1V, 04/01/2018, 16:10. FINDINGS: Surgical changes and devices: Surgical clips are noted in right axilla and right lower lung field.. Lungs and pleura: Lungs are clear. No pleural effusions or pneumothorax. Mediastinum: Mediastinal contours appear normal. Heart size is normal. Bones and chest wall: No suspicious bony lesions. Overlying soft tissues appear unremarkable. IMPRESSION: No gross pneumothorax is seen. Interval improvement in right lung aeration with decrease in amount of right-sided pleural effusion. Dictated by: Kevin Wilson M.D. on 05/06/2018 at 15:49 Approved by: Kevin Wilson M.D. on 05/06/2018 at 15:50
[2018-05-06 14:37] LABS: Platelet Count 169 X10^3/uL (150-400)
[2018-05-06 14:54] LABS: INR 0.9 (0.9-1.3); Prothrombin Time 10.6 SECONDS (10.1-12.7)
== END ==
PROVIDERS: Family Provider Physician Assistant; PCP Physician Assistant; Visit Provider Internal Medicine Hematology & Oncology
DX: Z01.812 Encounter for preprocedural laboratory examination (principal); J91.0 Malignant pleural effusion; Z98.890 Other specified postprocedural states
CPT/HCPCS: 32555; 36415; 71045; 85049; 85610

== ENCOUNTER → 2018-05-21 14:53 | Outpatient (CLI) | payer MEDICARE, MEDICAID, SELFPAY ==
--- NOTE | 2018-05-21 | DI.RAD.S_ITS ---
PROCEDURE: XR CHEST 1V INDICATIONS: POST THORACENTISIS TECHNIQUE: One view of the chest was acquired. COMPARISON: [facility], CR, XR CHEST 1V, 05/06/2018, 14:07. FINDINGS: Surgical changes and devices: Surgical clips are noted in the region of right axilla and right breast.. Lungs and pleura: Pulmonary vascular congestion and pulmonary edema is likely present. Small amount of right pleural effusion is seen. No definite focal infiltrate. No gross pneumothorax. Mediastinum: Mediastinal contours appear normal. Heart size is enlarged. Bones and chest wall: No suspicious bony lesions. Overlying soft tissues appear unremarkable. IMPRESSION: Small residual right pleural effusion. No gross pneumothorax. Mild congestion. Dictated by: Kevin Wilson M.D. on 05/21/2018 at 16:41 Approved by: Kevin Wilson M.D. on 05/21/2018 at 16:42
--- NOTE | 2018-05-21 | DI.US.S_ITS ---
PROCEDURE: US THORACENTESIS INDICATIONS: BREAST CANCER TECHNIQUE: The indications, alternatives, benefits, risks, and complications of the procedure were explained to the patient. Written informed consent was obtained and placed in the chart. The chest was examined sonographically, and an appropriate site was chosen for thoracentesis. The skin was prepared and draped in the usual sterile fashion, and 1% lidocaine was infiltrated from the skin down through the pleural surface. A 19-gauge catheter-covered needle was then introduced into the pleural space, the catheter was advanced and the needle was withdrawn, and thereafter pleural fluid was aspirated. The catheter was then removed and a dressing was applied. COMPARISON: None. FINDINGS: Access site: Right hemithorax. Needle: One-Step centesis catheter with introducer needle. Fluid volume and description: 1000 clear, serous. Fluid sent for diagnostic testing: Not requested. Medications: 1% lidocaine for local anaesthesia. Complications: None; post-procedural chest radiograph is pending to assess for pneumothorax. IMPRESSION: Successful ultrasound-guided thoracentesis. Dictated by: Duran Jerez M.D. on 05/26/2018 at 15:30 Approved by: Duran Jerez M.D. on 05/26/2018 at 15:32
== END ==
PROVIDERS: PCP Physician Assistant; Visit Provider Internal Medicine Hematology & Oncology
DX: C50.919 Malignant neoplasm of unspecified site of unspecified female breast (principal); J90 Pleural effusion, not elsewhere classified; R09.89 Other specified symptoms and signs involving the circulatory and respiratory systems
CPT/HCPCS: 32555; 71045

== ENCOUNTER 2018-08-26 10:31 | Emergency (ER) | payer MEDICARE, MEDICAID, SELFPAY ==
[2018-08-26] VITALS (7 sets, daily range): BP systolic 116–130; BP diastolic 48–73; PULSE 68–82; RESP 16–20; TEMP 36.2; O2SAT 94–100
--- NOTE | 2018-08-26 12:07 | PC.NURSE ---
granddaughter reports, hx of breast and lung cancer, pt had thoracentesis past may, pt here due to coughing for one week and pain right breast ant/posterior. denies fever,vomiting. pain sharp worsen with coughing better when at rest.
[2018-08-26] MEDS: ALBUTEROL/IPRATROPIUM 3 ML AMPUL INH (12:13)
--- NOTE | 2018-08-26 12:29 | DI.RAD.S_ITS ---
PROCEDURE: XR CHEST 1V INDICATIONS: chest pain/sob TECHNIQUE: One view of the chest was acquired. COMPARISON: [facility], CR, XR CHEST 1V, 05/21/2018, 16:02. [facility], CR, XR CHEST 1V, 05/06/2018, 14:07. [facility], CR, XR CHEST 1V, 04/01/2018, 16:10. FINDINGS: Surgical changes and devices: None. Lungs and pleura: Mild diffuse interstitial pulmonary opacity.. No pleural effusions or pneumothorax. Mediastinum: Mediastinal contours appear normal. Heart size is normal. Bones and chest wall: No suspicious bony lesions. Overlying soft tissues appear unremarkable. IMPRESSION: Mild pulmonary edema versus atypical pneumonia. Dictated by: Jonatan Browne M.D. on 08/26/2018 at 12:50 Approved by: Jonatan Browne M.D. on 08/26/2018 at 12:54
--- NOTE | 2018-08-26 12:32 | ED.URI ---
HPI - URI/Sore Throat General Chief Complaint: Upper Respiratory Symptoms Stated Complaint: Cough Time Seen by Provider: 08/26/18 11:13 Source: patient and family Limitations: language barrier (Granddaughter translates) History of Present Illness HPI Narrative: Patient is brought to the emergency department by her granddaughter for ongoing cough and recent development of right lateral chest pain. Patient has an ongoing history of metastatic breast cancer with chronic right pleural effusion, and underwent right pleurodesis at the beginning of May. Patient is here because she is concerned that her pleurodesis may have dehisced, and that is why she is having pain on the right side. Patient denies fever. No sputum production. No abdominal pain, nausea, or diarrhea. No other chest pain. No lightheadedness or syncope. Related Data Home Medications Medication Instructions Recorded Confirmed capecitabine 2,000 mg PO DAILY 02/13/18 04/01/18 albuterol sulfate [Ventolin HFA] 2 puff INHALATION Q4H 04/01/18 04/01/18 exemestane 25 mg PO DAILY 04/01/18 04/01/18 palbociclib [Ibrance] 04/01/18 Previous Rx's Medication Instructions Recorded acetaminophen-codeine 1 tab PO Q4-6H PRN #20 tab 08/26/18 [Tylenol-Codeine #3] Allergies Allergy/AdvReac Type Severity Reaction Status Date / Time Penicillins [PENICILLINS] Allergy Unknown Verified 02/13/18 14:16 Review of Systems Constitutional Denies chills, Denies fever(s), Denies lethargy and Denies weakness Eyes Denies change in vision, Denies eye discharge, Denies irritation and Denies loss of vision ENT Ears, Nose, Mouth, and Throat: Denies change in voice, Denies neck pain and Denies sore throat Cardiovascular Reports chest pain, Denies irregular heart rhythm, Denies lightheadedness, Denies palpitations, Denies dyspnea, Denies dyspnea on exertion and Denies orthopnea Respiratory Reports cough, Denies dyspnea, Denies dyspnea on exertion and Denies wheezing Gastrointestinal Gastrointestinal: Denies abdominal pain, Denies change in bowel habits, Denies diarrhea, Denies nausea and Denies vomiting Genitourinary Denies hematuria, Denies flank pain, Denies urinary incontinence and Denies urinary urgency Musculoskeletal Denies neck pain Integumentary/Breasts Denies pruritus, Denies erythema, Denies rash and Denies wounds Neurologic Denies confusion, Denies loss of vision and Denies weakness Psychiatric Denies anxiety, Denies confusion, Denies depression, Denies homicidal ideation and Denies suicidal ideation Endocrine Denies palpitations Hematologic/Lymphatic Denies easy bruising Allergic/Immunologic Denies wheezing [facility] Medical History Breast cancer (Acute) Social History Smoking Status: Never smoker alcohol intake: never substance use type: does not use Social History Smoking Status: Never smoker alcohol intake: never substance use type: does not use Exam Initial Vital Signs Initial Vital Signs: Vital Signs Temperature 97.2 F L 08/26/18 10:40 Pulse Rate 68 08/26/18 10:40 Respiratory Rate 16 08/26/18 10:40 Blood Pressure 130/61 08/26/18 10:40 Pulse Oximetry 100 08/26/18 10:40 Const General: cooperative and well developed Nutritional Appearance: well nourished Orientation: alert, awake, oriented x3 and not confused [facility] Head: normocephalic and atraumatic Ears: external ears normal Nose: external nose normal and No nasal discharge Face and sinus: face symmetric and No dry mucous membranes Mouth: oral mucosae normal and moist mucous membranes Teeth and gingiva: dentition normal Eyes General: appearance normal, both eyes and all related structures Eyelids: eyelids normal Conjunctivae: conjunctivae normal Sclera: sclerae normal Pupils: PERRL EOM: EOM intact bilaterally Neck Neck: normal visual inspection, trachea midline, No lymphadenopathy, No midline deformity and No JVD Lymphatic: No lymphedema Chest Chest: normal inspection of the chest Resp Effort & Inspection: normal respiratory effort, able to speak in complete sentences, no respiratory distress and no use of accessory muscles Auscultation: clear to auscultation bilaterally, no rales, no rhonchi and no wheezes Other: Breath sounds are equal bilaterally. She has intermittent fits of dry coughing. Cardio Rate: regular rate Rhythm: regular rhythm Heart Sounds: no click, no gallops, no murmurs and no rubs Pulses: normal peripheral pulses GI Inspection: non-distended Palpation: soft, no hepatosplenomegaly, No guarding, No pulsatile mass and No tender Auscultation: normal bowel sounds Back/Spine/Pelvis Back: No CVA tenderness Cervical Spine: cervical ROM normal and No pain with cervical ROM Thoracic/Lumbar Spine: thoracic and lumbar spine normal to inspection Skin General: no rashes or lesions noted, No jaundice and No petechiae Neuro General: alert, oriented x3, gait normal and no focal motor deficits Speech: speech normal Extrem General: full ROM, no clubbing, cyanosis or edema, no pedal edema and no calf tenderness Psych Appearance: well kempt Mental Status: mental status grossly normal Attitude: cooperative Thought Content: normal and suicidality Judgment: judgment good Course Course Narrative: Patient was worked up with labs, chest x-ray, EKG, and was treated with a DuoNeb, and Toradol. Initial workup was unremarkable. However, given the patient's cancer history, pleuritic chest pain, and cough, I was concerned about the possibility of a PE. As such, CTA of the chest was done with PE protocol, and this was found to be negative for acute findings. I re-evaluated the patient, who was found to be feeling better. I discussed with the patient and her granddaughter the findings, and the likelihood of the pain being from a chest wall source. The patient has ongoing cough is most likely due to the irritation from cancer spread, the patient's overall tumor size is less than it was. No emergent condition has been identified today. We have discussed home management of symptoms, as well as the usual indications for return. Orders Ordered: ED Orders 08/26/18 12:29 XR chest 1V Stat 08/26/18 12:45 Complete Blood Count AUTO DIFF Stat Comprehensive Metabolic Panel Stat 08/26/18 13:51 CT angio chest PE protocol Stat Discontinued Medications Albuterol/Ipratropium (Duoneb) 3 ml INH NOW ONE Stop: 08/26/18 12:09 Last Admin: 08/26/18 12:13 Dose: 3 ml Ketorolac Tromethamine (Toradol) 30 mg IV NOW ONE Stop: 08/26/18 12:42 Last Admin: 08/26/18 12:59 Dose: 30 mg Morphine Sulfate (Morphine) 2 mg IV NOW ONE Stop: 08/26/18 12:42 Last Admin: 08/26/18 16:06 Dose: Not Given Vital Signs - 8 hr 08/26/18 13:00 08/26/18 13:30 08/26/18 14:07 Pulse Rate 75 79 Respiratory Rate 16 18 Blood Pressure [Left Arm] 116/73 130/63 Pulse Oximetry 95 97 97 08/26/18 15:54 Pulse Rate 82 Respiratory Rate 18 Blood Pressure [Left Arm] 120/48 L Pulse Oximetry 94 MDM - URI/Sore Throat Medical Records Attestation: I reviewed the patient's medical records. Lab Data Attestation: I reviewed the patient's lab results. Result diagrams: 08/26/18 12:45 08/26/18 12:45 Lab Results 08/26/18 08/26/18 Range/Units 12:45 12:45 WBC 2.6 L (4.5-11.0) X10^3/uL RBC 2.79 L (4.0-5.2) X10^6/uL Hgb 10.4 L (12.0-16.0) g/dL Hct 29.9 L (36-46) % MCV 107.0 H (80-100) fL MCH 37.3 H (26-34) PG MCHC 34.9 (30-36) % RDW 17.5 H (11.6-14.8) % Plt Count 140 L (150-400) X10^3/uL Neut % (Auto) 49.2 L (50-75) % Lymph % (Auto) 44.2 H (25-40) % [place] % (Auto) 5.2 (3-14) % Eos % (Auto) 0.5 L (2-4) % Baso % (Auto) 0.9 (0-2) % Neut # (Auto) 1300 L (0417-2922) /uL Lymph # (Auto) 1100 (3801-5442) /uL [place] # (Auto) 100 (0-900) /uL Eos # (Auto) 0 (0-450) /uL Baso # (Auto) 0 (0-100) /uL Sodium 139 (137-145) mmol/L Potassium 4.1 (3.4-5.1) mmol/L Chloride 104 (98-107) mmol/L Carbon Dioxide 26 (22-32) mmol/L BUN 13 (7-17) mg/dL Creatinine 0.90 (0.52-1.04) mg/dL Estimated GFR 59.8 L (>60) mL/min BUN/Creatinine Ratio 14.4 (6-22) Glucose 100 (80-110) mg/dL Calcium 9.7 (8.4-10.2) mg/dL Total Bilirubin 1.2 (0.2-1.3) mg/dL AST 23 (14-36) IU/L ALT 13 (9-52) IU/L Alkaline Phosphatase 59 (38-126) U/L Total Protein 6.9 (6.3-8.2) g/dL Albumin 4.4 (3.5-5.0) g/dL Globulin 2.5 (1.7-4.1) g/dL Albumin/Globulin Ratio 1.8 (1.0-2.8) Imaging Data Chest x-ray: Radiologist's impression: [address] [address] XRay Report Signed Patient: Yuly Nash#: [id number] : 5Acct:[id number] Age/Sex: 83 / FDate of Service: 08/26/18 Loc: ED Accession Number: [id number] Procedure: XR chest 1V Ordering Provider: Roxanne Aparicio MD PROCEDURE: XR CHEST 1V INDICATIONS: chest pain/sob TECHNIQUE: One view of the chest was acquired. COMPARISON: [facility], CR, XR CHEST 1V, 05/21/2018, 16:02. [facility], CR, XR CHEST 1V, 05/06/2018, 14:07. [facility], CR, XR CHEST 1V, 04/01/2018, 16:10. FINDINGS: Surgical changes and devices: None. Lungs and pleura: Mild diffuse interstitial pulmonary opacity.. No pleural effusions or pneumothorax. Mediastinum: Mediastinal contours appear normal. Heart size is normal. Bones and chest wall: No suspicious bony lesions. Overlying soft tissues appear unremarkable. IMPRESSION: Mild pulmonary edema versus atypical pneumonia. Dictated by: Jonatan Browne M.D. on 08/26/2018 at 12:50 Approved by: Jonatan Browne M.D. on 08/26/2018 at 12:54 CT scan - chest: Radiologist's impression: PROCEDURE: CT ANGIO CHEST PE PROTOCOL INDICATIONS: cancer, sob, R chest pain TECHNIQUE: After the administration of intravenous contrast, 2 mm thick sections acquired from the pulmonary apices to the posterior costophrenic angles. 3-dimensional maximum intensity projection (MIP) coronal and sagittal reformats were then acquired through the thorax. For radiation dose reduction, the following was used: automated exposure control, adjustment of mA and/or kV according to patient size. COMPARISON: [facility], CT, CT ANGIO CHEST PE PROTOCOL, 02/13/2018, 15:10. FINDINGS: Image quality: Excellent. Pulmonary arteries: Pulmonary arteries are normal in size, and demonstrate no intraluminal filling defects to suggest central pulmonary embolism. Lungs and pleura: Lungs are mildly improved in appearance with a significant reduction in the previously identified exudative appearing right pleural effusion. A medial right apical lung mass has slightly diminished in size having previously measured up to 3.2 cm and now measuring up to 2.1 cm. It remains mildly spiculated. There is a stable appearing enlarged lymph node at the anterior mediastinum on the right, at the same axial level as the lung mass.. No new pleural effusions or pneumothorax. Central and peripheral airways are patent. Pleural thickening and enhancement on the right persists, with an appearance suggestive of potential for pleural carcinomatosis. Mediastinum: Heart size is normal, without pericardial effusion. No mediastinal or hilar adenopathy. Thoracic aorta is normal in caliber and enhancement. Esophagus is normal in caliber, without hiatal hernia. Bones and chest wall: No suspicious bony lesions. Ribs and thoracic spine appear intact throughout. Thyroid gland is not well-seen. No axillary or supraclavicular adenopathy. Abdomen: Visualized upper abdominal solid organs appear normal in the early arterial phase of enhancement except for presence of an ovoid gallstone partially visualized within the gallbladder lumen.. IMPRESSION: 1. No pulmonary embolus seen. 2. Mild interval reduction in size of a malignant appearing mass at the medial right upper lobe, previously documented. 3. Stable appearing anterior mediastinal enlarged lymph node on the right, measuring approximately 2.7 cm in maximal dimension. No new adenopathy in this area has developed. 4. Reduction in size of a moderately large previously present exudative appearing pleural effusion. The effusion though reduced in size remains associated with mild pleural thickening, nodularity and enhancement. 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 5. Ovoid gallstone partially visualized within the gallbladder lumen. Dictated by: Duran Jerez M.D. on 08/26/2018 at 14:17 Approved by: Duran Jerez M.D. on 08/26/2018 at 14:23 ECG Data Attestation: I personally reviewed and interpreted this ECG as follows: (See below) Interpretation: Twelve lead EKG performed August 26, 2018 at 11:41 a.m., as follows: Regular ventricular rhythm with a rate of 65 beats per minute ID interval 176 milliseconds QRS duration 82 millisecond QTC interval 394 millisecond No ectopy No ST segment elevation or depression Interpretation: Normal sinus rhythm; no signs of acute ischemia; normal EKG as interpreted by ED MD. Discharge Plan Departure Patient Disposition: Home Clinical Impression: Costochondritis, Cough Discharge Date/Time: 08/26/18 16:25 Interventions: ED Discharge Assessment Last Done: 08/26/18 16:02 Instructions: DI for Costochondritis Activity Restrictions/Additional Instructions: Your x-ray and CT scan looked good. There is no evidence of your pleurodesis pulling apart, or of a blood clot or pneumonia or any other emergent condition. Most likely, the pain in your side is from inflammation of your chest wall from all the coughing. Prescriptions: New acetaminophen-codeine [Tylenol-Codeine #3] 300-30 mg tablet 1 tab PO Q4-6H PRN (Reason: pain) Qty: 20 RF: 0 No Action capecitabine 500 mg Tablet 2,000 mg PO DAILY RF: 0 albuterol sulfate [Ventolin HFA] 90 mcg/actuation HFA aerosol inhaler 2 puff Inhalation Q4H RF: 0 exemestane 25 mg tablet 25 mg PO DAILY RF: 0 palbociclib [Ibrance] 125 mg capsule RF: 0 Referrals: Patricia Dallas PA-C [Primary Care Provider] -
--- NOTE | 2018-08-26 12:36 | ED_ITS ---
HPI - URI/Sore Throat General Chief Complaint: Upper Respiratory Symptoms Stated Complaint: Cough Time Seen by Provider: 08/26/18 11:13 Source: patient and family Limitations: language barrier (Granddaughter translates) History of Present Illness HPI Narrative: Patient is brought to the emergency department by her granddaughter for ongoing cough and recent development of right lateral chest pain. Patient has an ongoing history of metastatic breast cancer with chronic right pleural effusion, and underwent right pleurodesis at the beginning of May. Patient is here because she is concerned that her pleurodesis may have dehisced, and that is why she is having pain on the right side. Patient denies fever. No sputum production. No abdominal pain, nausea, or diarrhea. No other chest pain. No lightheadedness or syncope. Related Data Home Medications Medication Instructions Recorded Confirmed capecitabine 2,000 mg PO DAILY 02/13/18 04/01/18 albuterol sulfate [Ventolin HFA] 2 puff INHALATION Q4H 04/01/18 04/01/18 exemestane 25 mg PO DAILY 04/01/18 04/01/18 palbociclib [Ibrance] 04/01/18 Previous Rx's Medication Instructions Recorded acetaminophen-codeine 1 tab PO Q4-6H PRN #20 tab 08/26/18 [Tylenol-Codeine #3] Allergies Allergy/AdvReac Type Severity Reaction Status Date / Time Penicillins [PENICILLINS] Allergy Unknown Verified 02/13/18 14:16 Review of Systems Constitutional Denies chills, Denies fever(s), Denies lethargy and Denies weakness Eyes Denies change in vision, Denies eye discharge, Denies irritation and Denies loss of vision ENT Ears, Nose, Mouth, and Throat: Denies change in voice, Denies neck pain and Denies sore throat Cardiovascular Reports chest pain, Denies irregular heart rhythm, Denies lightheadedness, Denies palpitations, Denies dyspnea, Denies dyspnea on exertion and Denies orthopnea Respiratory Reports cough, Denies dyspnea, Denies dyspnea on exertion and Denies wheezing Gastrointestinal Gastrointestinal: Denies abdominal pain, Denies change in bowel habits, Denies diarrhea, Denies nausea and Denies vomiting Genitourinary Denies hematuria, Denies flank pain, Denies urinary incontinence and Denies urinary urgency Musculoskeletal Denies neck pain Integumentary/Breasts Denies pruritus, Denies erythema, Denies rash and Denies wounds Neurologic Denies confusion, Denies loss of vision and Denies weakness Psychiatric Denies anxiety, Denies confusion, Denies depression, Denies homicidal ideation and Denies suicidal ideation Endocrine Denies palpitations Hematologic/Lymphatic Denies easy bruising Allergic/Immunologic Denies wheezing [facility] Medical History Breast cancer (Acute) Social History Smoking Status: Never smoker alcohol intake: never substance use type: does not use Social History Smoking Status: Never smoker alcohol intake: never substance use type: does not use Exam Initial Vital Signs Initial Vital Signs: Vital Signs Temperature 97.2 F L 08/26/18 10:40 Pulse Rate 68 08/26/18 10:40 Respiratory Rate 16 08/26/18 10:40 Blood Pressure 130/61 08/26/18 10:40 Pulse Oximetry 100 08/26/18 10:40 Const General: cooperative and well developed Nutritional Appearance: well nourished Orientation: alert, awake, oriented x3 and not confused [facility] Head: normocephalic and atraumatic Ears: external ears normal Nose: external nose normal and No nasal discharge Face and sinus: face symmetric and No dry mucous membranes Mouth: oral mucosae normal and moist mucous membranes Teeth and gingiva: dentition normal Eyes General: appearance normal, both eyes and all related structures Eyelids: eyelids normal Conjunctivae: conjunctivae normal Sclera: sclerae normal Pupils: PERRL EOM: EOM intact bilaterally Neck Neck: normal visual inspection, trachea midline, No lymphadenopathy, No midline deformity and No JVD Lymphatic: No lymphedema Chest Chest: normal inspection of the chest Resp Effort & Inspection: normal respiratory effort, able to speak in complete sentences, no respiratory distress and no use of accessory muscles Auscultation: clear to auscultation bilaterally, no rales, no rhonchi and no wheezes Other: Breath sounds are equal bilaterally. She has intermittent fits of dry coughing. Cardio Rate: regular rate Rhythm: regular rhythm Heart Sounds: no click, no gallops, no murmurs and no rubs Pulses: normal peripheral pulses GI Inspection: non-distended Palpation: soft, no hepatosplenomegaly, No guarding, No pulsatile mass and No tender Auscultation: normal bowel sounds Back/Spine/Pelvis Back: No CVA tenderness Cervical Spine: cervical ROM normal and No pain with cervical ROM Thoracic/Lumbar Spine: thoracic and lumbar spine normal to inspection Skin General: no rashes or lesions noted, No jaundice and No petechiae Neuro General: alert, oriented x3, gait normal and no focal motor deficits Speech: speech normal Extrem General: full ROM, no clubbing, cyanosis or edema, no pedal edema and no calf tenderness Psych Appearance: well kempt Mental Status: mental status grossly normal Attitude: cooperative Thought Content: normal and suicidality Judgment: judgment good Course Course Narrative: Patient was worked up with labs, chest x-ray, EKG, and was treated with a DuoNeb, and Toradol. Initial workup was unremarkable. However, given the patient's cancer history, pleuritic chest pain, and cough, I was concerned about the possibility of a PE. As such, CTA of the chest was done with PE protocol, and this was found to be negative for acute findings. I re- evaluated the patient, who was found to be feeling better. I discussed with the patient and her granddaughter the findings, and the likelihood of the pain being from a chest wall source. The patient has ongoing cough is most likely due to the irritation from cancer spread, the patient's overall tumor size is less than it was. No emergent condition has been identified today. We have discussed home management of symptoms, as well as the usual indications for return. Orders Ordered: ED Orders 08/26/18 12:29 XR chest 1V Stat 08/26/18 12:45 Complete Blood Count AUTO DIFF Stat Comprehensive Metabolic Panel Stat 08/26/18 13:51 CT angio chest PE protocol Stat Discontinued Medications Albuterol/Ipratropium (Duoneb) 3 ml INH NOW ONE Stop: 08/26/18 12:09 Last Admin: 08/26/18 12:13 Dose: 3 ml Ketorolac Tromethamine (Toradol) 30 mg IV NOW ONE Stop: 08/26/18 12:42 Last Admin: 08/26/18 12:59 Dose: 30 mg Morphine Sulfate (Morphine) 2 mg IV NOW ONE Stop: 08/26/18 12:42 Last Admin: 08/26/18 16:06 Dose: Not Given Vital Signs - 8 hr 08/26/18 13:00 08/26/18 13:30 08/26/18 14:07 Pulse Rate 75 79 Respiratory Rate 16 18 Blood Pressure [Left Arm] 116/73 130/63 Pulse Oximetry 95 97 97 08/26/18 15:54 Pulse Rate 82 Respiratory Rate 18 Blood Pressure [Left Arm] 120/48 L Pulse Oximetry 94 MDM - URI/Sore Throat Medical Records Attestation: I reviewed the patient's medical records. Lab Data Attestation: I reviewed the patient's lab results. Result diagrams: 08/26/18 12:45 08/26/18 12:45 Lab Results 08/26/18 08/26/18 Range/Units 12:45 12:45 WBC 2.6 L (4.5-11.0) X10^3/uL RBC 2.79 L (4.0-5.2) X10^6/uL Hgb 10.4 L (12.0-16.0) g/dL Hct 29.9 L (36-46) % MCV 107.0 H (80-100) fL MCH 37.3 H (26-34) PG MCHC 34.9 (30-36) % RDW 17.5 H (11.6-14.8) % Plt Count 140 L (150-400) X10^3/uL Neut % (Auto) 49.2 L (50-75) % Lymph % (Auto) 44.2 H (25-40) % [place] % (Auto) 5.2 (3-14) % Eos % (Auto) 0.5 L (2-4) % Baso % (Auto) 0.9 (0-2) % Neut # (Auto) 1300 L (9028-1458) /uL Lymph # (Auto) 1100 (7830-0282) /uL [place] # (Auto) 100 (0-900) /uL Eos # (Auto) 0 (0-450) /uL Baso # (Auto) 0 (0-100) /uL Sodium 139 (137-145) mmol/L Potassium 4.1 (3.4-5.1) mmol/L Chloride 104 (98-107) mmol/L Carbon Dioxide 26 (22-32) mmol/L BUN 13 (7-17) mg/dL Creatinine 0.90 (0.52-1.04) mg/dL Estimated GFR 59.8 L (>60) mL/min BUN/Creatinine Ratio 14.4 (6-22) Glucose 100 (80-110) mg/dL Calcium 9.7 (8.4-10.2) mg/dL Total Bilirubin 1.2 (0.2-1.3) mg/dL AST 23 (14-36) IU/L ALT 13 (9-52) IU/L Alkaline Phosphatase 59 (38-126) U/L Total Protein 6.9 (6.3-8.2) g/dL Albumin 4.4 (3.5-5.0) g/dL Globulin 2.5 (1.7-4.1) g/dL Albumin/Globulin Ratio 1.8 (1.0-2.8) Imaging Data Chest x-ray: Radiologist's impression: [address] [address] XRay Report Signed Patient: Yuly Nash#: [id number] : 5Acct:[id number] Age/Sex: 83 / FDate of Service: 08/26/18 Loc: ED Accession Number: [id number] Procedure: XR chest 1V Ordering Provider: Roxanne Aparicio MD PROCEDURE: XR CHEST 1V INDICATIONS: chest pain/sob TECHNIQUE: One view of the chest was acquired. COMPARISON: [facility], CR, XR CHEST 1V, 05/21/2018, 16:02. [facility], CR, XR CHEST 1V, 05/06/2018, 14:07. [facility], CR, XR CHEST 1V, 04/01/2018, 16:10. FINDINGS: Surgical changes and devices: None. Lungs and pleura: Mild diffuse interstitial pulmonary opacity.. No pleural effusions or pneumothorax. Mediastinum: Mediastinal contours appear normal. Heart size is normal. Bones and chest wall: No suspicious bony lesions. Overlying soft tissues appear unremarkable. IMPRESSION: Mild pulmonary edema versus atypical pneumonia. Dictated by: Jonatan Browne M.D. on 08/26/2018 at 12:50 Approved by: Jonatan Browne M.D. on 08/26/2018 at 12:54 CT scan - chest: Radiologist's impression: PROCEDURE: CT ANGIO CHEST PE PROTOCOL INDICATIONS: cancer, sob, R chest pain TECHNIQUE: After the administration of intravenous contrast, 2 mm thick sections acquired from the pulmonary apices to the posterior costophrenic angles. 3-dimensional maximum intensity projection (MIP) coronal and sagittal reformats were then acquired through the thorax. For radiation dose reduction, the following was used: automated exposure control, adjustment of mA and/or kV according to patient size. COMPARISON: [facility], CT, CT ANGIO CHEST PE PROTOCOL, 02/13/2018, 15:10. FINDINGS: Image quality: Excellent. Pulmonary arteries: Pulmonary arteries are normal in size, and demonstrate no intraluminal filling defects to suggest central pulmonary embolism. Lungs and pleura: Lungs are mildly improved in appearance with a significant reduction in the previously identified exudative appearing right pleural effusion. A medial right apical lung mass has slightly diminished in size having previously measured up to 3.2 cm and now measuring up to 2.1 cm. It remains mildly spiculated. There is a stable appearing enlarged lymph node at the anterior mediastinum on the right, at the same axial level as the lung mass.. No new pleural effusions or pneumothorax. Central and peripheral airways are patent. Pleural thickening and enhancement on the right persists, with an appearance suggestive of potential for pleural carcinomatosis. Mediastinum: Heart size is normal, without pericardial effusion. No mediastinal or hilar adenopathy. Thoracic aorta is normal in caliber and enhancement. Esophagus is normal in caliber, without hiatal hernia. Bones and chest wall: No suspicious bony lesions. Ribs and thoracic spine appear intact throughout. Thyroid gland is not well-seen. No axillary or supraclavicular ad enopathy. Abdomen: Visualized upper abdominal solid organs appear normal in the early arterial phase of enhancement except for presence of an ovoid gallstone partially visualized within the gallbladder lumen.. IMPRESSION: 1. No pulmonary embolus seen. 2. Mild interval reduction in size of a malignant appearing mass at the medial right upper lobe, previously documented. 3. Stable appearing anterior mediastinal enlarged lymph node on the right, measuring approximately 2.7 cm in maximal dimension. No new adenopathy in this area has developed. 4. Reduction in size of a moderately large previously present exudative appearing pleural effusion. The effusion though reduced in size remains associated with mild pleural thickening, nodularity and enhancement. 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 5. Ovoid gallstone partially visualized within the gallbladder lumen. Dictated by: Duran Jerez M.D. on 08/26/2018 at 14:17 Approved by: Duran Jerez M.D. on 08/26/2018 at 14:23 ECG Data Attestation: I personally reviewed and interpreted this ECG as follows: (See below) Interpretation: Twelve lead EKG performed August 26, 2018 at 11:41 a.m., as follows: Regular ventricular rhythm with a rate of 65 beats per minute MA interval 176 milliseconds QRS duration 82 millisecond QTC interval 394 millisecond No ectopy No ST segment elevation or depression Interpretation: Normal sinus rhythm; no signs of acute ischemia; normal EKG as interpreted by ED MD. Discharge Plan Departure Patient Disposition: Home Clinical Impression: Costochondritis, Cough Discharge Date/Time: 08/26/18 16:25 Interventions: ED Discharge Assessment Last Done: 08/26/18 16:02 Instructions: DI for Costochondritis Activity Restrictions/Additional Instructions: Your x-ray and CT scan looked good. There is no evidence of your pleurodesis pulling apart, or of a blood clot or pneumonia or any other emergent condition. Most likely, the pain in your side is from inflammation of your chest wall from all the coughing. Prescriptions: New acetaminophen-codeine [Tylenol-Codeine #3] 300-30 mg tablet 1 tab PO Q4-6H PRN (Reason: pain) Qty: 20 RF: 0 No Action capecitabine 500 mg Tablet 2,000 mg PO DAILY RF: 0 albuterol sulfate [Ventolin HFA] 90 mcg/actuation HFA aerosol inhaler 2 puff Inhalation Q4H RF: 0 exemestane 25 mg tablet 25 mg PO DAILY RF: 0 palbociclib [Ibrance] 125 mg capsule RF: 0 Referrals: Patricia Dallas PA-C [Primary Care Provider] -
[2018-08-26 12:59] LABS: Add Manual Diff / Slide Review NO; Basophils Absolute Auto 0 /uL (0-100); Basophils Percent Auto 0.9 % (0-2); Eosinophils Absolute Auto 0 /uL (0-450); Eosinophils Percent Auto 0.5 % (2-4); Hematocrit 29.9 % (36-46); Hemoglobin 10.4 g/dL (12.0-16.0); Lymphocytes Absolute Auto 1100 /uL (1100-4500); Lymphocytes Percent Auto 44.2 % (25-40); Mean Corpuscular HGB Conc 34.9 % (30-36); Mean Corpuscular Hemoglobin 37.3 PG (26-34); Monocytes Absolute Auto 100 /uL (0-900); Monocytes Percent Auto 5.2 % (3-14); Neutrophils Absolute Auto 1300 /uL (1500-7000); Neutrophils Percent Auto 49.2 % (50-75); Platelet Count 140 X10^3/uL (150-400); Red Blood Cell Count 2.79 X10^6/uL (4.0-5.2); Red Cell Distribution Width 17.5 % (11.6-14.8); White Blood Cell Count 2.6 X10^3/uL (4.5-11.0)
[2018-08-26] MEDS: KETOROLAC 60 MG/2 ML VIAL 30 MG IV (12:59)
[2018-08-26 13:11] LABS: Alanine Aminotransferase 13 IU/L (9-52); Albumin 4.4 g/dL (3.5-5.0); Albumin Globulin Ratio 1.8 (1.0-2.8); Alkaline Phosphatase 59 U/L (38-126); Aspartate Aminotransferase 23 IU/L (14-36); BUN Creatinine Ratio 14.4 (6-22); Bilirubin Total 1.2 mg/dL (0.2-1.3); Blood Urea Nitrogen 13 mg/dL (7-17); Calcium 9.7 mg/dL (8.4-10.2); Carbon Dioxide 26 mmol/L (22-32); Chloride 104 mmol/L (98-107); Estimated Glomerular Filt Rate 59.8 mL/min (>60); Globulin 2.5 g/dL (1.7-4.1); Glucose 100 mg/dL (80-110); HEMOLYSIS 28 (0-50); Potassium 4.1 mmol/L (3.4-5.1); Sodium 139 mmol/L (137-145); Total Protein 6.9 g/dL (6.3-8.2)
--- NOTE | 2018-08-26 13:51 | DI.CT.S_ITS ---
PROCEDURE: CT ANGIO CHEST PE PROTOCOL INDICATIONS: cancer, sob, R chest pain TECHNIQUE: After the administration of intravenous contrast, 2 mm thick sections acquired from the pulmonary apices to the posterior costophrenic angles. 3-dimensional maximum intensity projection (MIP) coronal and sagittal reformats were then acquired through the thorax. For radiation dose reduction, the following was used: automated exposure control, adjustment of mA and/or kV according to patient size. COMPARISON: [facility], CT, CT ANGIO CHEST PE PROTOCOL, 02/13/2018, 15:10. FINDINGS: Image quality: Excellent. Pulmonary arteries: Pulmonary arteries are normal in size, and demonstrate no intraluminal filling defects to suggest central pulmonary embolism. Lungs and pleura: Lungs are mildly improved in appearance with a significant reduction in the previously identified exudative appearing right pleural effusion. A medial right apical lung mass has slightly diminished in size having previously measured up to 3.2 cm and now measuring up to 2.1 cm. It remains mildly spiculated. There is a stable appearing enlarged lymph node at the anterior mediastinum on the right, at the same axial level as the lung mass.. No new pleural effusions or pneumothorax. Central and peripheral airways are patent. Pleural thickening and enhancement on the right persists, with an appearance suggestive of potential for pleural carcinomatosis. Mediastinum: Heart size is normal, without pericardial effusion. No mediastinal or hilar adenopathy. Thoracic aorta is normal in caliber and enhancement. Esophagus is normal in caliber, without hiatal hernia. Bones and chest wall: No suspicious bony lesions. Ribs and thoracic spine appear intact throughout. Thyroid gland is not well-seen. No axillary or supraclavicular adenopathy. Abdomen: Visualized upper abdominal solid organs appear normal in the early arterial phase of enhancement except for presence of an ovoid gallstone partially visualized within the gallbladder lumen.. IMPRESSION: 1. No pulmonary embolus seen. 2. Mild interval reduction in size of a malignant appearing mass at the medial right upper lobe, previously documented. 3. Stable appearing anterior mediastinal enlarged lymph node on the right, measuring approximately 2.7 cm in maximal dimension. No new adenopathy in this area has developed. 4. Reduction in size of a moderately large previously present exudative appearing pleural effusion. The effusion though reduced in size remains associated with mild pleural thickening, nodularity and enhancement. 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 5. Ovoid gallstone partially visualized within the gallbladder lumen. Dictated by: Duran Jerez M.D. on 08/26/2018 at 14:17 Approved by: Duran Jerez M.D. on 08/26/2018 at 14:23
--- NOTE | 2018-08-26 14:08 | PC.NURSE ---
after ambulating from the bathroom
== END 2018-08-26 16:25 | disposition home or self-care (01) ==
PROVIDERS: Emergency Provider Emergency Medicine; Family Provider Internal Medicine Medical Oncology; PCP Physician Assistant
DX: M94.0 Chondrocostal junction syndrome [Tietze] (principal); R05 Cough; R06.02 Shortness of breath
CPT/HCPCS: 36591; 71045; 71275; 80053; 85025; 93005; 94640; 96374; 99283; 99285; J1885; Q9967

== ENCOUNTER → 2018-12-15 09:46 | Outpatient (CLI) | payer MEDICARE, MEDICAID, SELFPAY ==
--- NOTE | 2018-12-15 | DI.US.S_ITS ---
PROCEDURE: US ABDOMEN COMPLETE INDICATIONS: RUQ PAIN TECHNIQUE: Real-time scanning was performed of the abdominal and retroperitoneal organs, with image documentation. COMPARISON: [facility], CT, ABDOMEN/PELVIS WITH CONTRAST, 04/01/2017, 15:32. FINDINGS: Liver: The liver demonstrates normal size and echogenicity. Gallbladder: Gallstones are seen. Tenderness is elicited when scanning over the gallbladder. The gallbladder wall is not thickened and there is no specific pericholecystic fluid. Biliary ducts: Intrahepatic bile ducts are non-dilated. Extrahepatic bile duct caliber measures 4.4 mm. Normal is 6-7 mm or less in diameter, or 10 mm or less post-cholecystectomy. Pancreas: Visualized portions of the pancreas are sonographically normal. Spleen: Spleen is normal in size and homogeneous in echotexture. Kidneys: Kidneys are normal in size and echotexture. Right kidney measures 9.1 cm long; left kidney measures 10 cm long. No hydronephrosis or nephrolithiasis. No solid masses. The renal cortex appears thinned on both sides. Aorta: Visualized aorta is normal in caliber at less than 3 cm. Iliacs: Proximal common iliac arteries are normal in caliber at less than 2.5 cm. IVC: Intrahepatic inferior vena cava is patent. Miscellaneous: No free abdominal fluid. IMPRESSION: Gallstones are seen and there is a positive sonographic Rueda sign. No additional sonographic signs of cholecystitis are seen. No biliary dilatation. Please correlate with physical examination findings, patient presentation, and laboratory values. Apparent thinning of the renal cortex consistent however, on the 2018 CT examination, the renal cortex appears normal. Dictated by: Yaakov Woods M.D. on 12/15/2018 at 10:41 Approved by: Yaakov Woods M.D. on 12/15/2018 at 10:43
== END ==
PROVIDERS: PCP Student in an Organized Health Care Education/Training Program; Visit Provider Student in an Organized Health Care Education/Training Program
DX: R10.11 Right upper quadrant pain (principal); K80.20 Calculus of gallbladder without cholecystitis without obstruction
CPT/HCPCS: 76700

== ENCOUNTER 2018-12-21 19:56 | Inpatient (IN) | payer MEDICARE, MEDICAID, SELFPAY ==
[2018-12-21 20:18] VITALS: BP 133/81; PULSE 71; RESP 12; TEMP 36.7; O2SAT 99
[2018-12-21 20:30] VITALS: BP 108/50; PULSE 73; RESP 25; O2SAT 100
[2018-12-21 20:58] LABS: Add Manual Diff / Slide Review NO; Basophils Absolute Auto 0 /uL (0-100); Basophils Percent Auto 1.2 % (0-2); Eosinophils Absolute Auto 0 /uL (0-450); Eosinophils Percent Auto 0.7 % (2-4); Hematocrit 31.7 % (36-46); Hemoglobin 10.8 g/dL (12.0-16.0); Lymphocytes Absolute Auto 800 /uL (1100-4500); Lymphocytes Percent Auto 34.5 % (25-40); Mean Corpuscular HGB Conc 34.2 % (30-36); Mean Corpuscular Hemoglobin 37.2 PG (26-34); Monocytes Absolute Auto 300 /uL (0-900); Monocytes Percent Auto 12.8 % (3-14); Neutrophils Absolute Auto 1200 /uL (1500-7000); Neutrophils Percent Auto 50.8 % (50-75); Platelet Count 142 X10^3/uL (150-400); Red Blood Cell Count 2.91 X10^6/uL (4.0-5.2); Red Cell Distribution Width 15.9 % (11.6-14.8); White Blood Cell Count 2.4 X10^3/uL (4.5-11.0)
[2018-12-21 21:25] LABS: INR 0.9 (0.9-1.3); Prothrombin Time 10.6 SECONDS (10.1-12.7)
[2018-12-21 21:28] LABS: PTT Partial Thromboplastin Tim 30 SECONDS (26.4-36.2)
[2018-12-21 21:30] VITALS: BP 105/63; PULSE 77; RESP 17; O2SAT 99
[2018-12-21 21:30] LABS: Alanine Aminotransferase 14 IU/L (9-52); Albumin 4.3 g/dL (3.5-5.0); Albumin Globulin Ratio 1.5 (1.0-2.8); Alkaline Phosphatase 60 U/L (38-126); Aspartate Aminotransferase 22 IU/L (14-36); BUN Creatinine Ratio 17.5 (6-22); Bilirubin Total 0.8 mg/dL (0.2-1.3); Blood Urea Nitrogen 14 mg/dL (7-17); Calcium 9.6 mg/dL (8.4-10.2); Carbon Dioxide 27 mmol/L (22-32); Chloride 103 mmol/L (98-107); Estimated Glomerular Filt Rate > 60.0 mL/min (>60); Globulin 2.8 g/dL (1.7-4.1); Glucose 123 mg/dL (80-110); HEMOLYSIS < 15 (0-50); Lipase 20 U/L (23-300); Potassium 4.2 mmol/L (3.4-5.1); Sodium 138 mmol/L (137-145); Total Protein 7.1 g/dL (6.3-8.2)
--- NOTE | 2018-12-21 21:36 | ED.ABDPAIN ---
HPI - Abdominal Pain General Chief Complaint: Abdominal Pain Stated Complaint: abd pain, hx gallstone, nausea Time Seen by Provider: 12/21/18 21:36 Source: patient Mode of arrival: Ambulatory Limitations: no limitations History of Present Illness HPI narrative: The patient presents with right upper quadrant and lower abdominal pain. She denies fever or chills. She denies nausea, vomiting or diarrhea. She is currently under treatment for breast cancer. She had a CT in [place], revealing cholelithiasis 1 month ago. Due to ongoing pain her doctor ordered an ultrasound last week. Ultrasound revealed cholelithiasis, but also indicated a positive Rueda sign. The patient has not seen a surgeon. The discussion last week deferred any immediate surgical consultation, the patient with told we would see about doing something if her symptoms became worse. She is not having fever chills. She is immunocompromised with chemotherapy. The right upper quadrant pain waxes and wanes, but is not definitely worse. At times the pain is rather severe. She also has lower abdominal pain. She has no associated constipation or diarrhea. She has no dysuria or hematuria. She is status post as well as appendectomy. Related Data Home Medications Medication Instructions Recorded Confirmed exemestane 25 mg PO DAILY 04/01/18 12/22/18 palbociclib [Ibrance] 125 mg PO DAILY 04/01/18 12/22/18 omeprazole 40 mg PO DAILY PRN 12/22/18 12/22/18 Allergies Allergy/AdvReac Type Severity Reaction Status Date / Time Penicillins [PENICILLINS] Allergy Unknown Verified 12/21/18 20:25 Review of Systems Review of Systems ROS Unobtainable: All systems reviewed & are unremarkable except as noted in HPI and below Constitutional Constitutional: Denies chills and Denies fever(s) Eyes Eyes: Denies change in vision and Denies eye discharge ENT Ears, Nose, Mouth, and Throat: Denies change in voice, Denies dizziness, Denies neck pain and Denies sore throat Cardiovascular Cardiovascular: Denies chest pain, Denies irregular heart rhythm, Denies lightheadedness, Denies palpitations, Denies dyspnea and Denies orthopnea Respiratory Respiratory: Denies cough, Denies dyspnea and Denies wheezing Gastrointestinal Gastrointestinal: Reports as per HPI, Reports abdominal pain, Denies change in bowel habits, Denies diarrhea, Denies nausea and Denies vomiting Genitourinary Genitourinary: Denies hematuria, Denies flank pain and Denies urinary urgency Musculoskeletal Musculoskeletal: Reports back pain, Denies neck pain and Denies numbness Integumentary/Breasts Skin/Breast: Denies erythema, Denies rash and Denies wounds Neurologic Neurologic: Denies dizziness and Denies numbness Psychiatric Psychiatric: Denies anxiety and Denies depression Endocrine Endocrine: Denies palpitations Allergic/Immunologic Allergic/Immunologic: Denies wheezing [facility] Medical History (Updated 12/22/18 @ 02:31 by David Hickey MD) Breast cancer (Acute) Surgical History History of appendectomy (Acute) History of (Acute) Social History household members: family Smoking Status: Never smoker alcohol intake: current substance use type: does not use Social History household members: family Smoking Status: Never smoker alcohol intake: current substance use type: does not use Exam Initial Vital Signs Initial Vital Signs: Vital Signs Temperature 98.0 F 12/21/18 20:18 Pulse Rate 71 12/21/18 20:18 Respiratory Rate 12 12/21/18 20:18 Blood Pressure 133/81 12/21/18 20:18 Pulse Oximetry 99 12/21/18 20:18 Const General: cooperative and well developed Nutritional Appearance: well nourished Orientation: alert, awake and oriented x3 HENMT Head: normocephalic and atraumatic Ears: TM's normal bilaterally Nose: external nose normal Mouth: oral mucosae normal and moist mucous membranes Teeth and gingiva: abnormal dentition Throat: posterior oropharynx abnormal Eyes General: appearance normal, both eyes and all related structures Eyelids: eyelids normal Conjunctivae: conjunctivae normal Sclera: sclerae normal Pupils: PERRL EOM: EOM intact bilaterally Other: No icterus Neck Neck: No JVD Resp Effort & Inspection: normal respiratory effort and able to speak in complete sentences Auscultation: clear to auscultation bilaterally, no rales, no rhonchi and no wheezes Cardio Rate: regular rate Rhythm: regular rhythm Heart Sounds: S1 normal, S2 normal, no click, no gallops, no murmurs and no rubs Pulses: normal peripheral pulses GI Inspection: non-distended Palpation: soft and no hepatosplenomegaly Auscultation: normal bowel sounds Other: Right upper quadrant tenderness with guarding but no rebound. Back/Spine/Pelvis Back: No CVA tenderness Skin General: no rashes or lesions noted and No jaundice Neuro General: alert, oriented x3 and no focal motor deficits Speech: speech normal Extrem General: no pedal edema and no calf tenderness Course Course Course Narrative: Evaluation is again consistent with cholecystitis. Findings were discussed with the on-call surgeon, Dr. Munguia. Dr. Munguia curd with admission with IV antibiotics. He will follow the patient in consultation. The patient was started on Cefotetan. Her pain has resolved with the Dilaudid given here in the ER. She was then discussed with the on-call hospitalist, KATELYN Garzon. Mr. Garzon will admit her. Orders Ordered: ED Orders 12/21/18 20:28 EKG-12 Lead Stat 12/21/18 20:50 Complete Blood Count AUTO DIFF Stat Comprehensive Metabolic Panel Stat Lipase Stat Partial Thromboplastin Time Stat Prothrombin Time INR Stat 12/21/18 21:50 US abdomen limited Stat Bisacodyl (Dulcolax) 10 mg DE DAILY PRN PRN Reason: Constipation Heparin Sodium (Porcine) (Heparin) 5,000 unit SUBCUT BID MAC Hydromorphone HCl (Dilaudid) 0.5 mg IV Q6H PRN PRN Reason: Pain, Moderate (4-6) Hydromorphone HCl (Dilaudid) 1 mg IV Q6HR PRN PRN Reason: Pain, Severe (7-10) Sodium Chloride (Normal Saline 0.9%) 1,000 mls @ 100 mls/hr IV CONT MAC Ketorolac Tromethamine (Toradol) 10 mg PO Q6HR PRN PRN Reason: Pain, Mild (1-3) Stop: 12/27/18 02:24 Naloxone HCl (Narcan) 0.2 mg IV Q2MIN PRN PRN Reason: Opiate Reversal Ondansetron HCl (Zofran) 4 mg IV Q6HR PRN PRN Reason: Nausea And Vomiting Discontinued Medications Hydromorphone HCl (Dilaudid) 0.5 mg IV NOW ONE Stop: 12/21/18 21:51 Last Admin: 12/21/18 22:08 Dose: 0.5 mg Documented by: DEANDRA Sodium Chloride (Normal Saline 0.9%) 1,000 mls @ 250 mls/hr IV CONT MAC Stop: 12/22/18 02:21 Last Infusion: 12/22/18 01:11 Dose: 0 mls/hr Documented by: Admin: 12/21/18 22:08 Dose: 250 mls/hr Documented by: DEANDRA Cefotetan Disodium/Dextrose (Cefotan) 2 gm in 50 mls @ 100 mls/hr IV NOW ONE Stop: 12/22/18 01:21 Last Admin: 12/22/18 01:08 Dose: 100 mls/hr Documented by: DEANDRA Vital Signs Vital signs: Vital Signs - 8 hr 12/21/18 20:18 12/21/18 20:30 12/21/18 21:30 Temperature 98.0 F Pulse Rate 71 73 77 Respiratory Rate 12 25 H 17 Blood Pressure 133/81 Blood Pressure [Left Arm] 108/50 L 105/63 Pulse Oximetry 99 100 99 MDM - Abdominal Pain Lab Data Result diagrams: 12/21/18 20:50 12/21/18 20:50 Labs: Lab Results 12/21/18 12/21/18 12/21/18 Range/Units 20:50 20:50 20:50 WBC 2.4 L (4.5-11.0) X10^3/uL RBC 2.91 L (4.0-5.2) X10^6/uL Hgb 10.8 L (12.0-16.0) g/dL Hct 31.7 L (36-46) % MCV 109.0 H (80-100) fL MCH 37.2 H (26-34) PG MCHC 34.2 (30-36) % RDW 15.9 H (11.6-14.8) % Plt Count 142 L (150-400) X10^3/uL Neut % (Auto) 50.8 (50-75) % Lymph % (Auto) 34.5 (25-40) % [place] % (Auto) 12.8 (3-14) % Eos % (Auto) 0.7 L (2-4) % Baso % (Auto) 1.2 (0-2) % Neut # (Auto) 1200 L (3854-9866) /uL Lymph # (Auto) 800 L (2187-6562) /uL [place] # (Auto) 300 (0-900) /uL Eos # (Auto) 0 (0-450) /uL Baso # (Auto) 0 (0-100) /uL PT 10.6 (10.1-12.7) SECONDS INR 0.9 (0.9-1.3) APTT 30 (26.4-36.2) SECONDS Sodium 138 (137-145) mmol/L Potassium 4.2 (3.4-5.1) mmol/L Chloride 103 (98-107) mmol/L Carbon Dioxide 27 (22-32) mmol/L BUN 14 (7-17) mg/dL Creatinine 0.80 (0.52-1.04) mg/dL Estimated GFR > 60.0 (>60) mL/min BUN/Creatinine Ratio 17.5 (6-22) Glucose 123 H (80-110) mg/dL Calcium 9.6 (8.4-10.2) mg/dL Total Bilirubin 0.8 (0.2-1.3) mg/dL AST 22 (14-36) IU/L ALT 14 (9-52) IU/L Alkaline Phosphatase 60 (38-126) U/L Total Protein 7.1 (6.3-8.2) g/dL Albumin 4.3 (3.5-5.0) g/dL Globulin 2.8 (1.7-4.1) g/dL Albumin/Globulin Ratio 1.5 (1.0-2.8) Lipase 20 L (23-300) U/L Procalcitonin (<0.5) ng/mL 12/21/18 Range/Units 20:50 WBC (4.5-11.0) X10^3/uL RBC (4.0-5.2) X10^6/uL Hgb (12.0-16.0) g/dL Hct (36-46) % MCV (80-100) fL MCH (26-34) PG MCHC (30-36) % RDW (11.6-14.8) % Plt Count (150-400) X10^3/uL Neut % (Auto) (50-75) % Lymph % (Auto) (25-40) % [place] % (Auto) (3-14) % Eos % (Auto) (2-4) % Baso % (Auto) (0-2) % Neut # (Auto) (7878-7446) /uL Lymph # (Auto) (4352-7785) /uL [place] # (Auto) (0-900) /uL Eos # (Auto) (0-450) /uL Baso # (Auto) (0-100) /uL PT (10.1-12.7) SECONDS INR (0.9-1.3) APTT (26.4-36.2) SECONDS Sodium (137-145) mmol/L Potassium (3.4-5.1) mmol/L Chloride (98-107) mmol/L Carbon Dioxide (22-32) mmol/L BUN (7-17) mg/dL Creatinine (0.52-1.04) mg/dL Estimated GFR (>60) mL/min BUN/Creatinine Ratio (6-22) Glucose (80-110) mg/dL Calcium (8.4-10.2) mg/dL Total Bilirubin (0.2-1.3) mg/dL AST (14-36) IU/L ALT (9-52) IU/L Alkaline Phosphatase (38-126) U/L Total Protein (6.3-8.2) g/dL Albumin (3.5-5.0) g/dL Globulin (1.7-4.1) g/dL Albumin/Globulin Ratio (1.0-2.8) Lipase (23-300) U/L Procalcitonin < 0.05 (<0.5) ng/mL Point of care testing: Urine Dip Bedside Urine Glucose Negative Bedside Urine Bilirubin - Negative Bedside Urine Ketone - Negative Urine Specific [place] 1.005 Bedside Urine Occult Blood - Negative Bedside Urine pH 6.0 Bedside Urine Protein - Negative Bedside Urine Urobilinogen - Negative Bedside Urine Nitrite - Negative Bedside Urine Leukocytes - Negative Esterase Imaging Data US - abdomen: Radiologist's impression: Cholelithiasis with mild gallbladder wall thickening and positive sonographic Rueda sign. Findings consistent with acute cholecystitis. Large gallstone measuring 19 mm at the gallbladder neck. CBD was not visualized. Pancreas was poorly visualized. Critical Care Time Critical Care Time Critical Care Time: Yes Total Critical Care Time: 30 Attestation: Critical care time includes initial evaluation, review of radiology and lab data, clinical decisions, and consultation with surgery and the on-call hospitalist. Discharge Plan Departure Patient Disposition: Admitted As Inpatient Clinical Impression: Cholecystitis Discharge Date/Time: 12/22/18 01:56 Admit Date/Time: 12/22/18 00:47 Admit Provider: Henry Garzon
--- NOTE | 2018-12-21 21:50 | DI.US.S_ITS ---
PROCEDURE: US ABDOMEN LIMITED INDICATIONS: KNOWN CHOLELITHIASIS. INCREASED PAIN TECHNIQUE: Real-time scanning was performed of the abdominal and retroperitoneal organs, with image documentation. COMPARISON: [facility], US, US ABDOMEN COMPLETE, 12/15/2018, 10:03. FINDINGS: Liver: Liver is normal in size and homogeneous in echotexture. Gallbladder: Cholelithiasis as before. There is now a nonmobile 1.9 cm gallstone lodged within the gallbladder neck not previously seen. Borderline thickening of the gallbladder wall measures up to 3 mm in thickness. There is a positive sonographic Rueda's per enroller report. No pericholecystic fluid. Biliary ducts: Intrahepatic bile ducts are non-dilated. Extrahepatic bile ducts could not be assessed secondary to shadowing from bowel gas. Miscellaneous: No free abdominal fluid. IMPRESSION: Cholelithiasis with new finding of a 1.9 cm gallstone lodged within the gallbladder neck with borderline thickening of the gallbladder wall and a positive sonographic Rueda's sign, suggesting acute cholecystitis. No significant discrepancy with the project hire radiology preliminary report. Dictated by: Gilbert More M.D. on 12/22/2018 at 7:13 Approved by: Gilbert More M.D. on 12/22/2018 at 7:20
[2018-12-21] MEDS: HYDROMORPHONE 0.5 MG INJ IV (22:08)
[2018-12-21] MEDS: SODIUM CHLORIDE 0.9% 1,000 ML 250 ML IV (22:08)
[2018-12-22] VITALS (7 sets, daily range): BP systolic 124–151; BP diastolic 61–74; PULSE 65–74; RESP 16–20; TEMP 36.4–36.9; O2SAT 95–99; BMI 28.0
[2018-12-22] MEDS: CEFOTETAN 2 GM/50 ML PIGGYBACK IV (01:08)
[2018-12-22 02:10] LABS: Procalcitonin < 0.05 ng/mL (<0.5)
[2018-12-22] MEDS: SODIUM CHLORIDE 0.9% 1,000 ML 100 ML IV ×2 (02:43→14:40)
[2018-12-22] MEDS: HYDROMORPHONE 0.5 MG INJ IV ×2 (02:43→07:01)
[2018-12-22 03:01] LABS: RBC Urine None Seen (0-5/HPF)
[2018-12-22 03:03] LABS: Appearance Urine UA CLEAR; Bilirubin Urine UA NEGATIVE (NEGATIVE); Color Urine UA YELLOW; Glucose Urine UA NEGATIVE (Negative); Ketones Urine UA NEGATIVE (NEGATIVE); Leukocyte Esterase Urine UA 1+ (NEGATIVE); Nitrite Urine UA NEGATIVE (Negative); Occult Blood Urine UA TRACE-INTACT (Negative); Protein Urine UA NEGATIVE (Negative); Specific Gravity Urine UA 1.015 (1.000-1.035); Urobilinogen Urine UA 0.2 E.U./dL (0.2)
[2018-12-22 03:14] LABS: Squamous Epithelial Cell Urine 0-1 /HPF (0-5/HPF)
[2018-12-22 03:15] LABS: Bacteria Urine Few (2-10); Culture Indicated Urine Specimen Cultured; WBC Urine 1-5/HPF (0-5/HPF)
--- NOTE | 2018-12-22 03:35 | P.HP_ITS ---
History of Present Illness History of Present Illness Date Patient Seen: 12/22/18 Time Patient Seen: 02:09 Chief complaint: abd pain, hx gallstone, nausea Narrative: Ms. Lisset Nash is an 83-year-old female patient with a history breast cancer, dizziness and dyspepsia who presents to the ER with complaints of upper abdominal pain. The patient is [place]-speaking and her daughter is at bedside providing translation. The patient provides history of having abdominal pain off and on since May. She had an ultrasound completed on 12/15/2018 for evaluation of her pain which revealed cholelithiasis with a positive Rueda sign and a normal bile duct measuring 4.4 mm. Following that exam the patient had worsening of symptoms developing nausea but no vomiting. The patient additionally reports 1 week ago having back pain with pain radiating to her left arm and chest pressure. She also had associated shortness of breath at the time. She states the discomfort lasted approximately 2 days and has completely resolved. Patient denies complaints of headaches, fevers or chills. She does complain of dizziness using soliz for support but uses no assistive devices and has sustained no recent falls. She has no further chest pain or shortness of breath and denies palpitations cough or wheezing. She has abdominal pain as above with intermittent nausea but reports no vomiting. She has no diarrhea and tends towards constipation. Upon arrival to the ER she has a temperature of 98.0?, heart rate of 71, blood pressure 133/81, respirations 12 saturating 99% on room air. The patient has repeat ultrasound of the gallbladder which we demonstrates cholelithiasis with wall thickening and a positive Rueda suggestive of cholecystitis and a large stone lodged in the gallbladder neck. On laboratory analysis she has a low white count 2.4 and a hemoglobin of 10.8 and hematocrit of 31 point platelets 142. Chemistry to with the of 14 and creatinine is 0.8 a nonfasting glucose of 123. Her liver functions reveal a total bili of 0.8, AST of 22, ALT of 14 and alkaline phosphatase of 60. Her lipase is 20. Dr. Munguia is consulted by the emergency department. The choices made in conjunction with surgery to treat with antibiotics and the patient received cefotetan 2 g in the ER. She also received Dilaudid for pain. The patient is admitted to the hospital for cholelithiasis with acute cholecystitis. Patient History Medical History Breast cancer (Acute) Surgical History History of appendectomy (Acute) History of (Acute) History of thoracentesis (Acute) Social History household members: family Smoking Status: Never smoker alcohol intake: current substance use type: does not use Family & Social History Social History: household members family Prior Living Arrangements House Safety & Behavioral: Feels Safe in Current Yes Environment Been Physically Hurt or No Threatened By a Person Suicidal Ideation Description None Tobacco & Substance use: Smoking Status Never smoker alcohol intake current alcohol intake frequency holiday/special occasion Substance Use Type does not use Comment: The patient is single lives in a single family home. She describes a family history of her father who had stomach problems diet in the [place] age 33. Her mother had dementia and at 92. She has 1 brother who has Alzheimer's and a 2nd with Parkinson's. She has a son who has pancreatic cancer and both her grandmothers had breast cancer. Smoking: Patient has never smoked Alcohol: Patient denies consuming alcohol. Substance use: Patient denies recreation pharmaceuticals herbal or cannabis products. Advanced directives: In direct discussion with the patient she states her wish to be FULL CODE. She designates Shawnee Michel who hold DPOA to be her surrogate decision makers. Meds Home Medications and Allergies Home Medications Medication Instructions Recorded Confirmed Type exemestane 25 mg PO DAILY 04/01/18 12/22/18 History palbociclib [Ibrance] 125 mg PO DAILY 04/01/18 12/22/18 History omeprazole 40 mg PO DAILY PRN 12/22/18 12/22/18 History Allergies Allergy/AdvReac Type Severity Reaction Status Date / Time Penicillins [PENICILLINS] Allergy Unknown Verified 12/21/18 20:25 Review of Systems Review of Systems ROS Unobtainable: All systems reviewed & are unremarkable except as noted in HPI and below Exam Vital Signs (past 8 hours): - 12/21/18 20:18 12/21/18 20:30 12/21/18 21:30 Temperature 98.0 F Pulse Rate 71 73 77 Respiratory Rate 12 25 H 17 Blood Pressure 133/81 Blood Pressure [Left Arm] 108/50 L 105/63 Pulse Oximetry 99 100 99 12/22/18 01:27 12/22/18 01:50 Temperature 98.4 F Pulse Rate 74 73 Respiratory Rate 18 20 Blood Pressure 143/74 H Blood Pressure [Left Arm] 151/61 H Pulse Oximetry 99 98 Oxygen Delivery Method Room Air Oxygen Flow Rate 0 Narrative Exam Narrative: GENERAL APPEARANCE: well developed, well nourished, mildly uncomfortable appearing. HEENT: Normocephalic, PERRLA, sclera anicteric and conjunctiva clear, EOMs intact without nystagmus, no rhinorrhea, mucous membranes appear dry and pink without lesions or exudate. NECK/THYROID: neck supple, no JVD, no carotid bruit, no thyromegaly, trachea midline. LYMPH NODES: no cervical or supraclavicular lymphadenopathy. SKIN: warm and dry, no visible lesions, no rashes, ulcerations or petechiae. HEART: regular rate and rhythm, S1-S2, 1/6 systolic murmur over left mid sternal border, no rubs or gallops, brisk capillary refill, no edema LUNGS: Scattered coarseness with end expiratory wheezing, No cough present CHEST: Symmetrical movement, no accessory muscle use, no pain to AP and lateral compression. ABDOMEN: Pain on palpation over epigastrium and bilateral lower quadrants, no guarding or peritoneal signs, no organomegaly, active bowel tones. BACK: Nontender EXTREMITIES: moves all extremities, strength is 5/5 and symmetrical, no deformities or joint effusions, 2+ dorsalis pedis pulses.. NEUROLOGIC: Patient is [place]-speaking only, AAO x4, no focal neurologic deficits, sensation intact to light touch, hearing grossly normal to speech. PSYCH: alert, cooperative, cognitive function intact, good eye contact, appropriate with stable behavior Objective Labs Result Diagrams: 12/21/18 20:50 12/21/18 20:50 Labs: Laboratory Results - last 24 hr 12/21/18 12/21/18 12/21/18 20:50 20:50 20:50 WBC 2.4 L RBC 2.91 L Hgb 10.8 L Hct 31.7 L MCV 109.0 H MCH 37.2 H MCHC 34.2 RDW 15.9 H Plt Count 142 L Neut % (Auto) 50.8 Lymph % (Auto) 34.5 [place] % (Auto) 12.8 Eos % (Auto) 0.7 L Baso % (Auto) 1.2 Neut # (Auto) 1200 L Lymph # (Auto) 800 L [place] # (Auto) 300 Eos # (Auto) 0 Baso # (Auto) 0 PT 10.6 INR 0.9 APTT 30 Sodium 138 Potassium 4.2 Chloride 103 Carbon Dioxide 27 BUN 14 Creatinine 0.80 Estimated GFR > 60.0 BUN/Creatinine Ratio 17.5 Glucose 123 H Calcium 9.6 Total Bilirubin 0.8 AST 22 ALT 14 Alkaline Phosphatase 60 Total Protein 7.1 Albumin 4.3 Globulin 2.8 Albumin/Globulin Ratio 1.5 Lipase 20 L Procalcitonin Urine Color Urine Appearance Urine pH Ur Specific [place] Urine Protein Urine Glucose (UA) Urine Ketones Urine Occult Blood Urine Nitrate Urine Bilirubin Urine Urobilinogen Ur Leukocyte Esterase Urine RBC Urine WBC Ur Squamous Epith Cells Urine Bacteria Ur Culture Indicated? 12/21/18 12/22/18 20:50 02:50 WBC RBC Hgb Hct MCV MCH MCHC RDW Plt Count Neut % (Auto) Lymph % (Auto) [place] % (Auto) Eos % (Auto) Baso % (Auto) Neut # (Auto) Lymph # (Auto) [place] # (Auto) Eos # (Auto) Baso # (Auto) PT INR APTT Sodium Potassium Chloride Carbon Dioxide BUN Creatinine Estimated GFR BUN/Creatinine Ratio Glucose Calcium Total Bilirubin AST ALT Alkaline Phosphatase Total Protein Albumin Globulin Albumin/Globulin Ratio Lipase Procalcitonin < 0.05 Urine Color Yellow Urine Appearance Clear Urine pH 5.0 Ur Specific [place] 1.015 Urine Protein Negative Urine Glucose (UA) Negative Urine Ketones Negative Urine Occult Blood Trace-intact Urine Nitrate Negative Urine Bilirubin Negative Urine Urobilinogen 0.2 Ur Leukocyte Esterase 1+ H Urine RBC None seen Urine WBC 1-5/hpf Ur Squamous Epith Cells 0-1 /hpf Urine Bacteria Few (2-10) H Ur Culture Indicated? Specimen cultured Assessment & Plan Assessment & Plan narrative: This is an 83-year-old female patient who presents to the ER for abdominal pain and nausea with a previously diagnosed cholelithiasis by ultrasound scan 6 days ago. On updated scan the patient has a new finding of a 19 mm gallstone lodged at the gallbladder neck with gallbladder wall thickening. 1. Acute cholecystitis, present on admission, active -patient has had an interval change between ultrasounds finding new thickening of the gallbladder wall, positive Rueda sign -ultrasound 6 days ago shows a normal common bile duct at 4.4 mm. Today the patient has normal LFTs and lipase consistent with a patent common duct. -thank you Dr. Munguia for your consult and recommendations. -the patient has penicillin allergies and will be started on meropenem 1 g IV every 8 hours. -abdominal pain is managed with hydromorphone 0.5-1 mg as needed for pain. -patient will remain NPO with normal saline infusing at 100 cc per hour. 2. Cholelithiasis, chronic, present on admission, active. -prior history of cholelithiasis now with an occlusive gallstone lodged at the gallbladder neck. -general surgery has been consulted, awaiting recommendations. 3. Right breast cancer, chronic, stable -patient is on dual medications for cancer treatment. -patient has underlying immunosuppression with a white count of 2.4. -will continue exemestane 25 mg daily and palbociclib which the patient begins a new round reportedly yesterday at 125 mg daily. -chemotherapeutic cautions in place. 4. Dizziness, chronic, present on admission, active -patient uses soliz and furniture for support in her home setting. She uses no devices for ambulation and has had no recent falls. -PT and OT to evaluate and treat. The patient is admitted to the hospital related to the severity of symptoms and the risk for potential complications adverse events. This time the patient is admitted as an inpatient with surgical consult and expected length of stay greater than 2 midnight. Quality VTE Deep Vein Thrombosis/Pulmonary Embolism Present on Admission: No
--- NOTE | 2018-12-22 03:46 | PC.ADMIT ---
Addendum entered by Ariella Womack R.N. 12/22/18 07:03: Medicated with now dose of IV Dilaudid per order of BEHAVIORAL HEALTH RN to see if will help patient be less anxious so as lab draw can be reattempted. Addendum entered by Ariella Womack R.N. 12/22/18 06:40: KATELYN Garzon, notified that patient complains of heart being squeezed. BP 125/62 with HR of 73. O2 sat on RA is 99%. Lab had just recently been into room and were unable to obtain lab draw as patient kept pulling hand away. Order received for stat EKG and RT notified of order. BEHAVIORAL HEALTH RN here to see/talk with patient. Addendum entered by Ariella Womack R.N. 12/22/18 06:33: Patient's granddaughter reports patient doesn't want to take Toradol again as it is bad for the heart stating it made her heart pound. Addendum entered by Ariella Womack R.N. 12/22/18 05:38: Telemetry not displaying per DIRECTOR MBA so patient awakened to check unit. Once awake patient complains of 4/10 abdominal pain; too early to repeat Dilaudid so medicated with Toradol. Original Note: Patient admitted at 0150 to room 209 per wheelchair from ER. Patient is Mosotho speaking only and requests use of granddaughter as certified court/medical interpreter rather than using certified court/medical interpreter phone at this time. Is alert and oriented. Breath sounds coarse and with wheezes in RML anteriorly; RA sat 98%. HRR; placed on telemetry per BEHAVIORAL HEALTH RN order. Denies nausea. BT present and abdomen is soft although is having 4/10 pain across lower abdomen and is tender in RUQ with palpation; was medicated with Dilaudid and currently asleep. Denies dysuria, frequency or urgency but does have stress incontinence and wears a pad. Reports she is dizzy all the time and feels unsteady on feet; uses soliz/furniture to navigate around home and denies use of assistive device. Fall risk score is high and bed alarm activated. Placed on continuous pulse oximetry and calf SCD's applied per BEHAVIORAL HEALTH RN order. Will start chemo precautions as has been taking 2 chemo medications for breast cancer. Oriented to room, bed controls and call light. Voided 50cc light orange tinged urine and UA sent to lab. [id number] Admission Note: The patient,Lisset Nash,83 y/o, was given written information regarding hospital policies, unit procedures and contact persons. Patient's smoking status: Never smoker. Vital Signs - 8 hr 12/21/18 20:18 12/21/18 20:30 12/21/18 21:30 Temperature 98.0 F Pulse Rate 71 73 77 Respiratory Rate 12 25 H 17 Blood Pressure 133/81 Blood Pressure [Left Arm] 108/50 L 105/63 Pulse Oximetry 99 100 99 12/22/18 01:27 12/22/18 01:50 Temperature 98.4 F Pulse Rate 74 73 Respiratory Rate 18 20 Blood Pressure 143/74 H Blood Pressure [Left Arm] 151/61 H Pulse Oximetry 99 98
[2018-12-22] MEDS: MEROPENEM 1 GM in SODIUM CHLORIDE 0.9% 100 ML 200 ML IV (04:28)
[2018-12-22] MEDS: KETOROLAC 10 MG TABLET PO (05:35)
[2018-12-22 08:12] LABS: Add Manual Diff / Slide Review NO; Basophils Absolute Auto 0 /uL (0-100); Basophils Percent Auto 1.8 % (0-2); Eosinophils Absolute Auto 0 /uL (0-450); Eosinophils Percent Auto 0.3 % (2-4); Hematocrit 28.3 % (36-46); Hemoglobin 9.8 g/dL (12.0-16.0); Lymphocytes Absolute Auto 1000 /uL (1100-4500); Lymphocytes Percent Auto 41.6 % (25-40); Mean Corpuscular HGB Conc 34.6 % (30-36); Mean Corpuscular Hemoglobin 37.9 PG (26-34); Mean Corpuscular Volume 109.7 fL (80-100); Monocytes Absolute Auto 300 /uL (0-900); Monocytes Percent Auto 11.6 % (3-14); Neutrophils Absolute Auto 1100 /uL (1500-7000); Neutrophils Percent Auto 44.7 % (50-75); Platelet Count 119 X10^3/uL (150-400); Red Blood Cell Count 2.58 X10^6/uL (4.0-5.2); White Blood Cell Count 2.4 X10^3/uL (4.5-11.0)
[2018-12-22 08:38] LABS: Troponin I < 0.012 ng/mL (0.01-0.034)
--- NOTE | 2018-12-22 08:48 | P.CONS_ITS ---
History of Present Illness Consult details Date Patient Seen: 12/22/18 Time Patient Seen: 08:56 Chief complaint: abd pain, hx gallstone, nausea Reason for consult: Acute cholecystitis Narrative: 83-year-old Ecuadorean speaking female with metastatic breast cancer current on chemotherapy with acute on chronic cholecystitis. She has recurrent breast cancer with pleural metastases status post pleurodesis on salvage chemotherapy. She received her last dose of chemotherapy yesterday via [facility]. Over the past several months she has had episodes of persistent right upper quadrant pain sometimes lasting several days at a time. Yesterday she had worsening of her RUQ abdominal pain and came to the emergency room. She was afebrile and hemodynamically stable US-milena cholecystic fluid and gallbladder wall thickening in addition to a stone within the neck of the gallbladder. [facility] Medical History Breast cancer (Acute) Surgical History History of appendectomy (Acute) History of (Acute) History of thoracentesis (Acute) Social History household members: family Smoking Status: Never smoker alcohol intake: current substance use type: does not use Social History household members: family Smoking Status: Never smoker alcohol intake: current substance use type: does not use Meds Home Medications and Allergies Home Medications Medication Instructions Recorded Confirmed Type exemestane 25 mg PO DAILY 04/01/18 12/22/18 History palbociclib [Ibrance] 125 mg PO DAILY 04/01/18 12/22/18 History omeprazole 40 mg PO DAILY PRN 12/22/18 12/22/18 History Allergies Allergy/AdvReac Type Severity Reaction Status Date / Time Penicillins [PENICILLINS] Allergy Unknown Verified 12/21/18 20:25 Review of Systems Review of Systems ROS Unobtainable: other (unable to obtain secondary to language) Exam Vital Signs (past 8 hours): - 12/22/18 01:27 12/22/18 01:50 12/22/18 06:37 Temperature 98.4 F 98.1 F Pulse Rate 74 73 74 Respiratory Rate 18 20 19 Blood Pressure 143/74 H 125/62 Blood Pressure [Left Arm] 151/61 H Pulse Oximetry 99 98 97 Oxygen Delivery Method Room Air Oxygen Flow Rate 0 Narrative Exam Narrative: General-adult female no acute distress HEENT-moist mucous membranes, no scleral icterus Neck-supple, no lymphadenopathy Chest- no labored respirations, clear to auscultation bilaterally Cardiac-regular rate and rhythm Abdomen-mildly tender RUQ no peritonitis Extremities-no edema, warm well perfused Neurological-alert and oriented x 3. No focal deficits Skin-normal temperature and turgor, no rashes or ulcers Objective Labs Result Diagrams: 12/22/18 07:55 12/21/18 20:50 Labs: Laboratory Results - last 24 hr 12/21/18 12/21/18 12/21/18 20:50 20:50 20:50 WBC 2.4 L RBC 2.91 L Hgb 10.8 L Hct 31.7 L MCV 109.0 H MCH 37.2 H MCHC 34.2 RDW 15.9 H Plt Count 142 L Neut % (Auto) 50.8 Lymph % (Auto) 34.5 Rush % (Auto) 12.8 Eos % (Auto) 0.7 L Baso % (Auto) 1.2 Neut # (Auto) 1200 L Lymph # (Auto) 800 L Rush # (Auto) 300 Eos # (Auto) 0 Baso # (Auto) 0 PT 10.6 INR 0.9 APTT 30 Sodium 138 Potassium 4.2 Chloride 103 Carbon Dioxide 27 BUN 14 Creatinine 0.80 Estimated GFR > 60.0 BUN/Creatinine Ratio 17.5 Glucose 123 H Calcium 9.6 Total Bilirubin 0.8 AST 22 ALT 14 Alkaline Phosphatase 60 Troponin I Total Protein 7.1 Albumin 4.3 Globulin 2.8 Albumin/Globulin Ratio 1.5 Lipase 20 L Procalcitonin Urine Color Urine Appearance Urine pH Ur Specific [place] Urine Protein Urine Glucose (UA) Urine Ketones Urine Occult Blood Urine Nitrate Urine Bilirubin Urine Urobilinogen Ur Leukocyte Esterase Urine RBC Urine WBC Ur Squamous Epith Cells Urine Bacteria Ur Culture Indicated? 12/21/18 12/22/18 12/22/18 20:50 02:50 07:55 WBC 2.4 L RBC 2.58 L Hgb 9.8 L Hct 28.3 L MCV 109.7 H MCH 37.9 H MCHC 34.6 RDW 16.0 H Plt Count 119 L Neut % (Auto) 44.7 L Lymph % (Auto) 41.6 H Rush % (Auto) 11.6 Eos % (Auto) 0.3 L Baso % (Auto) 1.8 Neut # (Auto) 1100 L Lymph # (Auto) 1000 L Rush # (Auto) 300 Eos # (Auto) 0 Baso # (Auto) 0 PT INR APTT Sodium Potassium Chloride Carbon Dioxide BUN Creatinine Estimated GFR BUN/Creatinine Ratio Glucose Calcium Total Bilirubin AST ALT Alkaline Phosphatase Troponin I Total Protein Albumin Globulin Albumin/Globulin Ratio Lipase Procalcitonin < 0.05 Urine Color Yellow Urine Appearance Clear Urine pH 5.0 Ur Specific [place] 1.015 Urine Protein Negative Urine Glucose (UA) Negative Urine Ketones Negative Urine Occult Blood Trace-intact Urine Nitrate Negative Urine Bilirubin Negative Urine Urobilinogen 0.2 Ur Leukocyte Esterase 1+ H Urine RBC None seen Urine WBC 1-5/hpf Ur Squamous Epith Cells 0-1 /hpf Urine Bacteria Few (2-10) H Ur Culture Indicated? Specimen cultured 12/22/18 07:55 WBC RBC Hgb Hct MCV MCH MCHC RDW Plt Count Neut % (Auto) Lymph % (Auto) Rush % (Auto) Eos % (Auto) Baso % (Auto) Neut # (Auto) Lymph # (Auto) Rush # (Auto) Eos # (Auto) Baso # (Auto) PT INR APTT Sodium Potassium Chloride Carbon Dioxide BUN Creatinine Estimated GFR BUN/Creatinine Ratio Glucose Calcium Total Bilirubin AST ALT Alkaline Phosphatase Troponin I < 0.012 Total Protein Albumin Globulin Albumin/Globulin Ratio Lipase Procalcitonin Urine Color Urine Appearance Urine pH Ur Specific [place] Urine Protein Urine Glucose (UA) Urine Ketones Urine Occult Blood Urine Nitrate Urine Bilirubin Urine Urobilinogen Ur Leukocyte Esterase Urine RBC Urine WBC Ur Squamous Epith Cells Urine Bacteria Ur Culture Indicated? Assessment & Plan Assessment and plan (1) Cholecystitis: Current visit: Yes Status: Acute Assessment & Plan narrative: 83-year-old female with recurrent metastatic breast cancer on salvage chemotherapy who developed acute on chronic cholecystitis. Her gallbladder disease has been smoldering for the past several months with r ecurrent episodes sometimes lasting days at a time. Currently she is afebrile has minimal right upper quadrant pain this morning. I reviewed her abdominal ultrasound demonstrates a gallstone within the neck of the gallbladder and pericholecystic fluid. Given the duration of her acute on chronic cholecystitis and the extent of her comorbidities and the timing of her last chemotherapy I think the best course of action is antibiotic therapy/conservative management her for acute cholecystitis. If she fails to improve on antibiotic therapy would proceed to cholecystostomy versus cholecystectomy.
--- NOTE | 2018-12-22 09:10 | PT.IIE ---
Current Diagnoses Cholecystitis, unspecified (12/22/18) Surgical History (Last Reviewed 12/22/18 @ 08:55 by Rainer Munguia MD) History of appendectomy (Acute) History of (Acute) History of thoracentesis (Acute) Medical History (Last Reviewed 12/22/18 @ 08:55 by Rainer Munguia MD) Breast cancer (Acute) Physical Therapy Inpatient Evaluation/Re-Eval M1 PT/OT-IP Prior Functional Status Start: 12/22/18 11:42 Freq: NEEDED Status: Active Protocol: Document 12/22/18 09:10 AB (Rec: 12/22/18 12:01 AB [id number]) Medical Review Prior Functional Status Medical History Reviewed Yes Communication pt has her grand daughter in room to translate for her. pt is Cypriot speaking Mobility and Gait per granddaughter: pt is modified independent with all mobilities and ambulation without AD Social History Household Members family Living Arrangements House Number of Floors (Floors) Two Floors Number of Stairs To Enter/Railing? pt stays on the main level of the house 3 steps with R rail to enter Home Environment Standard Height Toilet,Tub/ Shower Home Equipment Hand Held Shower,Grab Bars Near Toilet,Grab Bars In Shower Additional Social History Comment Grand daughter stated that she is the caregiver for the pt and is with pt 24/7 M2 PT-IP Current Condition Start: 12/22/18 11:42 Freq: NEEDED Status: Active Protocol: Document 12/22/18 09:10 AB (Rec: 12/22/18 12:01 AB [id number]) Physical Therapy Current Condition Current Condition Evaluation Date 12/22/18 Treatment Diagnosis cholecystitis; generalized weakness Onset Date 12/22/18 Precautions Other Precautions Falls M3 PT-IP Subjective Start: 12/22/18 11:42 Freq: NEEDED Status: Active Protocol: Document 12/22/18 09:10 AB (Rec: 12/22/18 12:01 AB [id number]) Subjective Physical Therapy Visit Type Type Initial Evaluation Visit Start Time 09:10 Visit Stop Time 09:48 Total Visit Minutes 38 Number of CATTLE RANCHER Visits 0 Physical Therapy Visit Comments Patient Comments grand daughter present in room ; pt initially refusing PT due to c/o feeling tired and weak but agreed to get up and do some PT. Therapy Pain Assessment Pain Present Pain Present Denied Pain M4 PT-IP Mobility and Gait Start: 12/22/18 11:42 Freq: NEEDED Status: Active Protocol: Document 12/22/18 09:10 AB (Rec: 12/22/18 12:01 AB [id number]) PT-Bed Mobility Assessment Supine to Sit Supine to Sit Maximum Assistance,1 Person Assistance,Bedrails Sit to Supine Sit to Supine Standby Assistance Scooting Scooting to Edge of Bed Contact Guard Assistance PT-Transfer Assessment Sit to and From Stand Sit to and from Stand Moderate Assistance,1 Person Assistance,Use of Upper Extremities Equipment Transfer Assistive Device None,Gait Belt Orthotic/Prosthetic Devices or Brace: No Transfers Transfer Destination Wheelchair Transfer Technique pt ambulated without AD Transfer Ability Level of Assist Moderate Assistance,1 Person Assistance,Use of Upper Extremities Comments Mobility Comments pt completed sit to stand mod A with LOB posteriorly. pt refusing to use a FWW stated that she can walk but has not eaten for awhile and feels weak. pt ambulated with min to mod A with (+) LOB x 4. pt requested to use the toilet and assisted. OT in the toilet and assist pt. educated pt and granddaughter regarding safety and use of fWW at this time. pt agreed to use FWW next tx session. Gait Assessment Gait Gait Assistance Required: Minimum Assistance,Moderate Assistance,1 Person Assist Distance (Feet) 30 Able to Maintain Weight Bearing Status Yes During Gait Assistive Devices Assistive Device None,Gait Belt Orthotic/Prosthetic Devices or Brace: No Gait Deviations General Gait Pattern Decreased Stride Length, Decreased Feet Clearance Factors Limiting Gait Function Factors Limiting Gait Function Decreased Activity Tolerance, Decreased Strength,Poor Balance,Poor Safety Awareness Comments Gait Comments pt presents with unsteady gait with (+) LOB x 4. PT-Balance Assessment Sitting Balance and Reactions Static Sitting Balance Ability Good Dynamic Sitting Balance Ability Good Standing Balance and Reactions Static Standing Balance Ability Fair Dynamic Standing Balance Ability Poor Device Used without AD M5 PT-IP Objective Assessments Start: 12/22/18 11:42 Freq: NEEDED Status: Active Protocol: Document 12/22/18 09:10 AB (Rec: 12/22/18 12:01 AB [id number]) Orientation Orientation/Cognition Level of Alertness Alert Orientation Name,Age,Place,Situation Language Function Ability Portuguese as Second Language Safety Awareness Decreased Safety Awareness Gross Range of Motion Lower Extremity ROM Assessment Within Functional Limits Strength Lower Extremity Strength Assessment Right Impaired Hip 3+/5 Knee 3+/5 Coordination Assessment Gross Coordination Gross Coordination WNL Sensation Assessment Sensation Gross Sensation WNL Muscle Tone Muscle Tone WNL Yes M6 PT-IP Treatment Start: 12/22/18 11:42 Freq: NEEDED Status: Active Protocol: Document 12/22/18 09:10 AB (Rec: 12/22/18 12:01 AB [id number]) Physical Therapy Treatment Education Education Provided Safety M7 PT-IP Assessment and Plan Start: 12/22/18 11:42 Freq: NEEDED Status: Active Protocol: Document 12/22/18 09:10 AB (Rec: 12/22/18 12:01 AB [id number]) PT Summary Assessment and Plan Potential Rehabilitation Potential Good Status of Condition at Evaluation Evolving Summary Impairments Strength,Balance,Cognition,Bed Mobility,Transfers,Gait, Activity Tolerance Assessment Summary pt requiring max A with supine to sit, mod A with ambulation and presents with unsteady gait. pt has her grand daughter to assist her and grand daughter stated that she can provide 24/7 assist. caregiver training will be conducted when appropriate and will also conduct stair climbing training prior ot d/c . Goals Bed Mobility Goal Independent Transfer Goal Independent,Front Wheeled Walker Gait Goal Independent,Front Wheel Walker Gait Distance 200 Other Goals increase ambulation without AD 200 ft SBA Days to Meet Goals 10 Frequency of Treatment Frequency Of Treatment Once a Day Treatment Plan Physical Therapy Treatment Plan Bed Mobility Training,Transfer Training,Gait Training, Therapeutic Exercise,Balance Retraining,Discharge Planning, Hot or Cold Pack,Neuromuscular Re-ed,Coordination Retraining ,Manual Therapy Other Recommendations and Next Treatment ambulation, stair climbing, Focus caregiver training Recommendations To Nursing Amount of Assist Needed 1 Person Assist Discharge Recommendations PT Discharge Recommendations Home with 24/7 Assist,Home Health Equipment Needed for Home Before FWW: if not safe without AD Discharge
[2018-12-22 09:35] LABS: BUN Creatinine Ratio 16.3 (6-22); Blood Urea Nitrogen 13 mg/dL (7-17); Calcium 8.5 mg/dL (8.4-10.2); Carbon Dioxide 24 mmol/L (22-32); Chloride 107 mmol/L (98-107); Cholesterol 186 mg/dL (140-199); Estimated Glomerular Filt Rate > 60.0 mL/min (>60); Glucose 117 mg/dL (80-110); HDL Cholesterol 44 mg/dL (40-60); HEMOLYSIS < 15 (0-50); LDL Cholesterol Calculated 122 mg/dL (<100); Sodium 137 mmol/L (137-145); Triglycerides 98 mg/dL (35-150)
[2018-12-22] MEDS: HEPARIN 5,000 UNIT/ML VIAL 5000 UNIT SUBCUT ×2 (10:54→20:40)
[2018-12-22] MEDS: MEROPENEM 1 GM/50 ML PIGGYBACK IV ×2 (13:54→20:40)
[2018-12-22] MEDS: PALBOCICLIB 125 MG 125 EACH PO (16:08)
[2018-12-22] MEDS: EXEMESTANE 25 MG TABLET PO (16:11)
--- NOTE | 2018-12-22 16:33 | OT.IP.EVAL ---
Current Diagnoses Cholecystitis, unspecified (12/22/18) Past Medical History (Last Reviewed 12/22/18 @ 08:55 by Rainer Munguia MD) Breast cancer (Acute) Surgical History (Last Reviewed 12/22/18 @ 08:55 by Rainer Munguia MD) History of appendectomy (Acute) History of (Acute) History of thoracentesis (Acute) Occupational Therapy Inpatient Evaluation/Re-Eval M1 PT/OT-IP Prior Functional Status Start: 12/22/18 16:15 Freq: NEEDED Status: Active Protocol: Document 12/22/18 09:20 [facility] (Rec: 12/22/18 16:33 [facility] [id number]) Medical Review Prior Functional Status Medical History Reviewed Yes Communication pt has her grand daughter in room to translate for her. pt is Thai speaking Mobility and Gait per granddaughter: pt is modified independent with all mobilities and ambulation without AD Activities of Daily Living and IADL's Pt prior able to do all ADL's independently and does not have any adaptive equipment at home. Social History Household Members family Living Arrangements House Number of Floors (Floors) Two Floors Number of Stairs To Enter/Railing? pt stays on the main level of the house 3 steps with R rail to enter Home Environment Standard Height Toilet,Tub/ Shower Home Equipment Hand Held Shower,Grab Bars Near Toilet,Grab Bars In Shower Additional Social History Comment Grand daughter stated that she is the caregiver for the pt and is with pt 24/7 M2 OT-IP Current Condition Start: 12/22/18 16:15 Freq: Status: Active Protocol: Document 12/22/18 09:20 [facility] (Rec: 12/22/18 16:33 [facility] [id number]) Occupational Therapy Current Condition Current Condition Evaluation Date 12/22/18 Treatment Diagnosis Gallstones, weakness Weight Bearing Status Weight Bearing Status Weight Bear as Tolerated M3 OT- IP Subjective and Pain Start: 12/22/18 16:15 Freq: Status: Active Protocol: Document 12/22/18 09:20 [facility] (Rec: 12/22/18 16:33 [facility] [id number]) OT- Subjective Occupational Therapy Visit Type Type Initial Evaluation Visit Start Time 09:20 Visit Stop Time 09:55 Total Visit Minutes 35 Occupational Therapy Visit Comments Patient Comments Pt's grand daughter present to translate as Nepalese is not pt's primary language. Patient/Caregiver Goals To go home. OT Pain Assessment Pain When Pain Assessed At Rest Pain Present Pain Present Denied Pain M4 OT- IP ADL's Start: 12/22/18 16:15 Freq: Status: Active Protocol: Document 12/22/18 09:20 [facility] (Rec: 12/22/18 16:33 [facility] [id number]) OT ADL-Grooming General Evaluation Grooming Ability Standby Assistance Comments OT Grooming Comments Pt able to wash her hands while standing at the sink with FWW and HA from therapist for balance. OT ADL-Dressing Comments OT Dressing Comments Pt too tired to attempt. OT ADL-Toileting General Evaluation Toileting Ability Standby Assistance Comments OT Toileting Comments SBA for safety as pt able to do own pericare needs. OT ADL-Bathing Comments OT Bathing Comments Not completed, pt too tired. M5 OT- IP IADL's Start: 12/22/18 16:15 Freq: Status: Active Protocol: Document 12/22/18 09:20 [facility] (Rec: 12/22/18 16:33 [facility] [id number]) OT-Instrumental Activities of Daily Living Home Safety Awareness Home Safety Comments Pt's grand daughter to asisst with all IAdl's at home and now to help with ADL's as needed. M6 OT- IP Functional Cognition Start: 12/22/18 16:15 Freq: Status: Active Protocol: Document 12/22/18 09:20 [facility] (Rec: 12/22/18 16:33 [facility] [id number]) Cognitive Factors Limiting Selfcare Function Cognitive Ability Level of Alertness Alert Patient Orientation Name Attention Span Ability Capable of Focused Attention, Capable of Sustained Attention Ability to Follow Commands Able to Follow One Step Commands Safety Awareness Underestimates Need for Assistance Problem Solving Ability Unable to Identify Errors, Needs Assist to Identify Solutions Cognitive Comments Cognitive Assessment Comments Pt has poor safety awareness and insisting on being able to walk without the FWW and had loss of balance x 2 and therapist needing to help with her balance to prevent from falling. OT- Vision and Hearing OT- Hearing Assessment OT- Hearing Assessment WFL OT- Vision Assessment Visual Acuity Glasses For Reading M7 OT- IP Mobility and Balance Start: 12/22/18 16:15 Freq: Status: Active Protocol: Document 12/22/18 09:20 [facility] (Rec: 12/22/18 16:33 [facility] [id number]) OT- Bed Mobility Assessment Supine to Sit Supine to Sit Assist Maximum Assistance,1 Person Assistance Sit to Supine Sit to Supine Assist Standby Assistance,1 Person Assistance Scooting Scooting to Edge of Bed Contact Guard Assistance OT-Transfer Assessment Sit to and From Stand Sit to and from Stand Moderate Assistance Transfers Transfer Ability Moderate Assistance Technique Transfer Destination Bed,Toilet Devices Transfer Assistive Devices Gait Belt,Front Wheeled Walker Comments Mobility Comments Pt very unsteady on her feet and very impulsive and needing vc for safety, and use of FWW . OT- Balance Assessment Sitting Balance and Reactions Static Sitting Balance Ability Good Dynamic Sitting Balance Ability Fair Standing Balance and Reactions Static Standing Balance Ability Fair M8 OT- IP Objective Assessments Start: 12/22/18 16:15 Freq: Status: Active Protocol: Document 12/22/18 09:20 [facility] (Rec: 12/22/18 16:33 [facility] [id number]) OT Gross Range of Motion Upper Extremity Range of Motion Assessment Within Functional Limits OT Strength Upper Extremity Strength Assessment Within Functional Limits OT-Muscle Tone Assessment Muscle Tone WNL Yes M9 OT- IP Assessment and Plan Start: 12/22/18 16:15 Freq: Status: Active Protocol: Document 12/22/18 09:20 [facility] (Rec: 12/22/18 16:33 [facility] [id number]) OT Summary Assessment and Plan Potential Rehabilitation Potential Good Analytic Complexity at Evaluation Low Summary OT Impairments Balance,Functional Mobility, Grooming,Dressing,Toileting, Bathing,Toilet Transfers, Shower Transfers Progress Towards Goals Slow Progress due to Medical Issues,Slow Progress due to Activity Tolerance,Slow Progress due to Cognition Assessment Summary Pt low complexity and main barrier is weakness and decreased balance from gallstones and currently doing chemotherapy. Pt has supportive family to be able to stay and assist her 20/10 for all needs. Pt to discharge home when stable, in addition pt may need FWW, BSC , tub bench/shower chair for home use as not at baseline and needing more assist for all ADl needs now due to weakness and decreased balance. Goals Grooming Goal Independent Dressing Goal Standby Assistance Toileting Goal Independent Bathing Goal Minimal Assistance Toilet Transfer Goal Standby Assistance Shower Transfer Goal Contact Guard Assistance Patient/Caregiver Education Goal Caregiver Independent Assisting Patient Days to Meet Goals 5 Frequency of Treatment Frequency Of Treatment Once a Day Treatment Plan OT Treatment Plan ADL Training,Functional Cognition Training,Functional Mobility,Patient/Family Education,Discharge Planning Other Treatment Recommendations and Next Lower body dressing, ADL Treatment Focus equipment needs Discharge Recommendations OT Discharge Recommendations Home with 20/10 Assist Home Equipment Needs FWW, BSC, tub bench versus shower chair
--- NOTE | 2018-12-22 17:01 | PM.PN.1 ---
Subjective Subjective Date Patient Seen: 12/22/18 Exam Vital Signs (past 8 hours): - 12/22/18 09:05 12/22/18 12:05 Temperature 97.9 F Pulse Rate 74 70 Respiratory Rate 18 16 Blood Pressure 126/63 Pulse Oximetry 98 96 Fraction of Inspired Oxygen 21 Oxygen Delivery Method Room Air Oxygen Flow Rate 0 Objective Labs Result Diagrams: 12/22/18 07:55 12/22/18 07:55 Labs: Laboratory Results - last 24 hr 12/21/18 12/21/18 12/21/18 20:50 20:50 20:50 WBC 2.4 L RBC 2.91 L Hgb 10.8 L Hct 31.7 L MCV 109.0 H MCH 37.2 H MCHC 34.2 RDW 15.9 H Plt Count 142 L Neut % (Auto) 50.8 Lymph % (Auto) 34.5 [place] % (Auto) 12.8 Eos % (Auto) 0.7 L Baso % (Auto) 1.2 Neut # (Auto) 1200 L Lymph # (Auto) 800 L [place] # (Auto) 300 Eos # (Auto) 0 Baso # (Auto) 0 PT 10.6 INR 0.9 APTT 30 Sodium 138 Potassium 4.2 Chloride 103 Carbon Dioxide 27 BUN 14 Creatinine 0.80 Estimated GFR > 60.0 BUN/Creatinine Ratio 17.5 Glucose 123 H Calcium 9.6 Total Bilirubin 0.8 AST 22 ALT 14 Alkaline Phosphatase 60 Troponin I Total Protein 7.1 Albumin 4.3 Globulin 2.8 Albumin/Globulin Ratio 1.5 Triglycerides Cholesterol LDL Cholesterol, Calc HDL Cholesterol Lipase 20 L Procalcitonin Urine Color Urine Appearance Urine pH Ur Specific [place] Urine Protein Urine Glucose (UA) Urine Ketones Urine Occult Blood Urine Nitrate Urine Bilirubin Urine Urobilinogen Ur Leukocyte Esterase Urine RBC Urine WBC Ur Squamous Epith Cells Urine Bacteria Ur Culture Indicated? 12/21/18 12/22/18 12/22/18 20:50 02:50 07:55 WBC 2.4 L RBC 2.58 L Hgb 9.8 L Hct 28.3 L MCV 109.7 H MCH 37.9 H MCHC 34.6 RDW 16.0 H Plt Count 119 L Neut % (Auto) 44.7 L Lymph % (Auto) 41.6 H [place] % (Auto) 11.6 Eos % (Auto) 0.3 L Baso % (Auto) 1.8 Neut # (Auto) 1100 L Lymph # (Auto) 1000 L [place] # (Auto) 300 Eos # (Auto) 0 Baso # (Auto) 0 PT INR APTT Sodium Potassium Chloride Carbon Dioxide BUN Creatinine Estimated GFR BUN/Creatinine Ratio Glucose Calcium Total Bilirubin AST ALT Alkaline Phosphatase Troponin I Total Protein Albumin Globulin Albumin/Globulin Ratio Triglycerides Cholesterol LDL Cholesterol, Calc HDL Cholesterol Lipase Procalcitonin < 0.05 Urine Color Yellow Urine Appearance Clear Urine pH 5.0 Ur Specific [place] 1.015 Urine Protein Negative Urine Glucose (UA) Negative Urine Ketones Negative Urine Occult Blood Trace-intact Urine Nitrate Negative Urine Bilirubin Negative Urine Urobilinogen 0.2 Ur Leukocyte Esterase 1+ H Urine RBC None seen Urine WBC 1-5/hpf Ur Squamous Epith Cells 0-1 /hpf Urine Bacteria Few (2-10) H Ur Culture Indicated? Specimen cultured 12/22/18 12/22/18 07:55 07:55 WBC RBC Hgb Hct MCV MCH MCHC RDW Plt Count Neut % (Auto) Lymph % (Auto) [place] % (Auto) Eos % (Auto) Baso % (Auto) Neut # (Auto) Lymph # (Auto) [place] # (Auto) Eos # (Auto) Baso # (Auto) PT INR APTT Sodium 137 Potassium 4.0 Chloride 107 Carbon Dioxide 24 BUN 13 Creatinine 0.80 Estimated GFR > 60.0 BUN/Creatinine Ratio 16.3 Glucose 117 H Calcium 8.5 Total Bilirubin AST ALT Alkaline Phosphatase Troponin I < 0.012 Total Protein Albumin Globulin Albumin/Globulin Ratio Triglycerides 98 Cholesterol 186 LDL Cholesterol, Calc 122 H HDL Cholesterol 44 Lipase Procalcitonin Urine Color Urine Appearance Urine pH Ur Specific [place] Urine Protein Urine Glucose (UA) Urine Ketones Urine Occult Blood Urine Nitrate Urine Bilirubin Urine Urobilinogen Ur Leukocyte Esterase Urine RBC Urine WBC Ur Squamous Epith Cells Urine Bacteria Ur Culture Indicated? Assessment & Plan Assessment & Plan narrative: Brief progress note: Patient seen and examined. Physical exam unchanged. Agree with admitting providers assessment and plan. Plan is to continue conservative treatment with meropenem in hopes that patient may have her cholecystectomy electively as an outpatient once her infection and inflammation have been treated and improved/resolved. Patient's diet has been advanced to clear liquid as tolerated. Discussed her case with her oncologist fellow Dr. Hayes and Dr. Palma who related that her metastatic breast cancer has been quite stable and recent restaging scans show stability. If her ANC falls below 1000 may stop palbociclib and if less than 500 may give G-CSF for which she has never required either. Will continue to monitor right upper quadrant abdominal pain and infectious signs and symptoms. Quality VTE Deep Vein Thrombosis/Pulmonary Embolism Present on Admission: No
[2018-12-23] VITALS (24 sets, daily range): BP systolic 126–181; BP diastolic 58–77; PULSE 65–79; RESP 12–20; TEMP 36.3–36.9; O2SAT 77–100; BMI 28.3
--- NOTE | 2018-12-23 | PATH_ITS ---
[facility] Accession Number: [id number] . 01 Material submitted: . gallbladder - GALLBLADDER . 01 Diagnosis: Gallbladder, Cholecystectomy: Mild chronic cholecystitis and cholelithiasis. Negative for atypia and malignancy. [facility] 12/27/2018 1633 Local . 01 Electronically signed: . Jennifer Knox MD, Pathologist NPI- [id number] . 01 Gross description: . Received in formalin, labeled gallbladder, is an intact gallbladder (length-8.7 cm, diameter-4.3 cm) with kay-green smooth shiny serosa and a patent cystic duct. No lymph nodes are identified. The lumen contains dark green viscous bile and one asra-colored solid firm gritty calculus (1.8 x 1.7 x 0.7 cm) with a crystalline cut surface. The mucosa is green, smooth and flat. The wall is up to 0.1 cm thick. No nodules, masses or lesion are identified. Section code: (A1) cystic duct resection margin and two serial sections from the body; (A2) two longitudinal sections from the fundus. ([id number]) /MRV 12/24/2018 1323 Local . 01 Pathologist provided ICD-10: K81.1 . 01 CPT . 039745 Performed at: [address], [place], [place] [id number] MD Hernandez Carlos MD Phone: [phone]
--- NOTE | 2018-12-23 00:17 | PC.NURSE ---
Addendum entered by Ariella Womack R.N. 12/23/18 06:51: O2 sat now 98% while asleep so oxygen titrated down to 1L/min. Addendum entered by Ariella Womack R.N. 12/23/18 06:07: Oximeter alarming and found sat at 77% so oxygen started at 2L/min; will monitor and titrate oxygen as needed. Granddaughter reports hx of same when hospitalized in [place] earlier this year. Original Note: Patient is alert and oriented; communicates using granddaughter as heating and air conditioning mechanic per her request. Breath sounds with coarse expiratory crackles throughout, right > left. Cough is tight and wheezing sounding;RA sat 96%. KATELYN Scott, informed and here to see patient. On continuous pulse oximetry although doesn't always leave it on. HRR and telemetry showing SR. Denies nausea. Is tender in epigastric area and more mildly tender in lower abdomen but denies need for pain medication. BT present and abdomen is soft. Has stress incontinence so wearing a pad but denies dysuria, frequency or urgency. On chemo precautions as receiving chemotherapy meds for breast CA. Able to turn self in bed and receives SBA to bathroom; steady on feet. Has been more weak and using furniture/soliz to walk at home; refusing assistive device here. Fall risk score is moderate; bed alarm is activated. Refusing to wear SCD's tonight despite information re: DVT prevention. Chemo precautions being used. Granddaughter rooming in.
[2018-12-23] MEDS: LEVALBUTEROL 1.25 MG/0.5 ML NEB INH (00:35)
[2018-12-23] MEDS: SODIUM CHLORIDE 0.9% 1,000 ML 100 ML IV (01:21)
[2018-12-23] MEDS: MEROPENEM 1 GM/50 ML PIGGYBACK IV ×3 (05:27→21:57)
--- NOTE | 2018-12-23 06:54 | P.PN_ITS ---
Subjective Subjective Date Patient Seen: 12/23/18 Interval history: Lisset Nash is an 83-year-old female with a past medical history significant for GERD and stable metastatic right breast cancer status post right VATS and pleurodesis for recurrent pleural effusion on palbociclib and exemstane who presented to the ED with complaints of right upper quadrant abdominal pain. The patient is Egyptian-speaking and her granddaughter is at bedside providing translation. The patient is resting in bedside chair comfortably. She endorses right sharp upper quadrant abdominal pain this morning when she rolled on her side and is curious if her gallstone moved. She is unsure if her pain is improving as she is receiving narcotics. She has not had any recurrence of emesis. She has had intermittent nausea and postprandial colicky pain. She endorses chronic cough in the morning and requests lozenges. She has no other complaints and denies headache, shortness of breath, chest pain, fever, chills, dysuria, diarrhea or constipation. She is voiding and eliminating without difficulty. She is up ambulating with assistance. Exam Vital Signs (past 8 hours): - 12/23/18 00:15 12/23/18 00:34 12/23/18 03:56 Temperature 98.5 F 97.8 F Pulse Rate 75 75 75 Respiratory Rate 18 16 19 Blood Pressure 145/72 H 140/58 L Pulse Oximetry 93 96 94 12/23/18 06:08 12/23/18 06:50 Temperature Pulse Rate Respiratory Rate Blood Pressure Pulse Oximetry 77 L 98 Fraction of Inspired Oxygen 21 Oxygen Delivery Method Room Air Oxygen Flow Rate 2 Narrative Exam Narrative: General: Elderly female sitting in bedside chair and in no acute distress, well-developed, well-nourished, appropriately interactive. HEENT: Normocephalic, atraumatic. External ears without defect. Pupils equal, round, and reactive to light. Anicteric sclerae, moist conjunctivae, and no lid lag. Oropharynx free of erythema and cobble stoning with moist mucosa. Neck: Supple with full range of motion. No jugular venous distension. No bruits. No lymphadenopathy or thyromegaly. Cardiovascular: Regular rate and rhythm without murmurs, rubs, or gallops appreciated Pulmonary: Clear to auscultation bilaterally without crackles, wheezes, or rhonchi. Normal respiratory effort with no use of accessory muscles. Abdomen: Soft, bowel sounds present, mild tenderness in right upper quadrant otherwise nontender, nondistended. No hepatosplenomegaly or masses appreciated. Extremities: No clubbing, cyanosis, or edema. Skin: Normal temperature, turgor, and texture; no rash, ulcers, or subcutaneous nodules appreciated. Neurological: Cranial nerves grossly intact. Psychiatric: Normal mood and affect. Appears to be alert and oriented to person, place, and time. Objective Labs Result Diagrams: 12/23/18 06:57 12/23/18 06:57 Labs: Laboratory Results - last 24 hr 12/22/18 12/22/18 12/22/18 07:55 07:55 07:55 WBC 2.4 L RBC 2.58 L Hgb 9.8 L Hct 28.3 L MCV 109.7 H MCH 37.9 H MCHC 34.6 RDW 16.0 H Plt Count 119 L Neut % (Auto) 44.7 L Lymph % (Auto) 41.6 H [place] % (Auto) 11.6 Eos % (Auto) 0.3 L Baso % (Auto) 1.8 Neut # (Auto) 1100 L Lymph # (Auto) 1000 L [place] # (Auto) 300 Eos # (Auto) 0 Baso # (Auto) 0 Sodium 137 Potassium 4.0 Chloride 107 Carbon Dioxide 24 BUN 13 Creatinine 0.80 Estimated GFR > 60.0 BUN/Creatinine Ratio 16.3 Glucose 117 H Calcium 8.5 Troponin I < 0.012 Triglycerides 98 Cholesterol 186 LDL Cholesterol, Calc 122 H HDL Cholesterol 44 Assessment & Plan Assessment & Plan narrative: Lisset Nash is an 83-year-old female with a past medical history significant for GERD and stable metastatic right breast cancer status post right VATS and pleurodesis for recurrent pleural effusion on palbociclib and exemstane who presented to the ED with complaints of right upper quadrant abdominal pain. 1. Acute cholecystitis with cholangitis, present on admission. Active. -Patient has had an interval change between abdominal ultrasounds which demonstrated new thickening of the gallbladder wall, positive Rueda sign, and a now occlusive gallstone lodged at the gallbladder neck. -Continue pain management with morphine 1-2 mg every 4 hours as needed for severe pain. -Patient was initially NPO and have slowly advance diet to clear liquids and continue to monitor toleration. -Discontinued IV fluid hydration as patient is adequately hydrated. -General surgery, Dr. Munguia, was consulted and we appreciate his time and care of the patient. Plan for cholecystectomy later this afternoon. Patient has been made NPO. Continue meropenem 1 g every 8 hours for now pending surgical removal. 2. Metastatic right breast cancer status post VATS with pleurodesis for recurrent right pleural effusion, present on admission. Stable. -Continue exemestane 25 mg daily and palbociclib 125 mg in which new round began day prior to admission. -Continue chemotherapeutic cautions in place. -Discussed her case with her oncologist fellow Dr. Chavez her oncologist Dr. Palma who related that her metastatic breast cancer has been quite stable and recent restaging scans show stability and should not permit her from having cholestectomy if needed. If her ANC falls below 1000 may stop palbociclib and if less than 500 may give G-CSF for which she has never required either. Current ANC 1073. 3. Dizziness, chronic, present on admission. Stable. -Patient uses soliz and furniture for support in her home setting. She uses no devices for ambulation and has had no recent falls. -Continue PT and OT evaluation and treatment. Disposition: Patient likely to discharge ill several days once she has recovered from acute cholecystectomy. Quality VTE Deep Vein Thrombosis/Pulmonary Embolism Present on Admission: No
[2018-12-23 07:54] LABS: BUN Creatinine Ratio 14.3 (6-22); Blood Urea Nitrogen 10 mg/dL (7-17); Calcium 8.1 mg/dL (8.4-10.2); Carbon Dioxide 24 mmol/L (22-32); Chloride 109 mmol/L (98-107); Estimated Glomerular Filt Rate > 60.0 mL/min (>60); Glucose 95 mg/dL (80-110); HEMOLYSIS < 15 (0-50); Magnesium 1.6 mg/dL (1.6-2.3); Potassium 3.3 mmol/L (3.4-5.1); Sodium 140 mmol/L (137-145)
[2018-12-23 08:01] LABS: Add Manual Diff / Slide Review NO; Basophils Absolute Auto 0 /uL (0-100); Basophils Percent Auto 1.3 % (0-2); Eosinophils Absolute Auto 0 /uL (0-450); Eosinophils Percent Auto 0.4 % (2-4); Hemoglobin 9.7 g/dL (12.0-16.0); Lymphocytes Absolute Auto 700 /uL (1100-4500); Lymphocytes Percent Auto 32.8 % (25-40); Mean Corpuscular HGB Conc 34.6 % (30-36); Mean Corpuscular Hemoglobin 37.8 PG (26-34); Mean Corpuscular Volume 109.1 fL (80-100); Monocytes Absolute Auto 400 /uL (0-900); Monocytes Percent Auto 16.1 % (3-14); Neutrophils Absolute Auto 1100 /uL (1500-7000); Neutrophils Percent Auto 49.4 % (50-75); Platelet Count 113 X10^3/uL (150-400); Red Blood Cell Count 2.56 X10^6/uL (4.0-5.2); Red Cell Distribution Width 15.8 % (11.6-14.8); White Blood Cell Count 2.2 X10^3/uL (4.5-11.0)
[2018-12-23] MEDS: HEPARIN 5,000 UNIT/ML VIAL 5000 UNIT SUBCUT (09:08)
[2018-12-23] MEDS: PALBOCICLIB 125 MG 125 EACH PO (09:38)
[2018-12-23] MEDS: EXEMESTANE 25 MG TABLET PO (09:38)
--- NOTE | 2018-12-23 10:06 | PT.IPTN ---
Current Diagnoses Cholecystitis, unspecified (12/22/18) Physical Therapy Treatment Note M2 PT-IP Current Condition Start: 12/22/18 11:42 Freq: NEEDED Status: Active Protocol: Document 12/22/18 09:10 AB (Rec: 12/22/18 12:01 AB [id number]) Physical Therapy Current Condition Current Condition Evaluation Date 12/22/18 Treatment Diagnosis cholecystitis; generalized weakness Onset Date 12/22/18 Precautions Other Precautions Falls M3 PT-IP Subjective Start: 12/22/18 11:42 Freq: NEEDED Status: Active Protocol: Document 12/23/18 09:57 SAK (Rec: 12/23/18 10:05 SAK [id number]) Subjective Physical Therapy Visit Type Type Initial Evaluation Visit Start Time 09:35 Visit Stop Time 10:00 Total Visit Minutes 25 Number of ASSEMBLY RIVETER Visits 0 Physical Therapy Visit Comments Patient Comments Ranjan in room. Patient agreeable to PT and to using FWW. Ranjan reports patient is tired after not sleeping well last night, is fiercely independent. Therapy Pain Assessment Pain Present Pain Present Denied Pain M4 PT-IP Mobility and Gait Start: 12/22/18 11:42 Freq: NEEDED Status: Active Protocol: Document 12/23/18 09:57 SAK (Rec: 12/23/18 10:05 SAK [id number]) PT-Transfer Assessment Sit to and From Stand Sit to and from Stand Contact Guard Assistance,1 Person Assistance,Use of Upper Extremities Equipment Transfer Assistive Device Gait Belt,Front Wheeled Walker Transfer Ability Level of Assist Contact Guard Assistance,1 Person Assistance,Use of Upper Extremities Comments Mobility Comments No LOB during Gait Assessment Gait Gait Assistance Required: Contact Guard Assist,1 Person Assist Distance (Feet) 200 Able to Maintain Weight Bearing Status Yes During Gait Assistive Devices Assistive Device Gait Belt,Front Wheeled Walker Gait Deviations General Gait Pattern Decreased Stride Length, Decreased Feet Clearance Comments Gait Comments No LOB with gait Stair Climbing Assessment Evaluation Level of Assist On Stairs Contact Guard Assistance,1 Person Assistance Devices Stair Climbing Assistive Devices Left Railing,Right Railing Technique/Endurance Stair Climbing Direction Ascend and Descend Stair Climbing Technique Step to Step Number of Steps Climbed 3 Stair Climbing Set # Repetitions (reps) 1 PT-Balance Assessment Standing Balance and Reactions Static Standing Balance Ability Good Dynamic Standing Balance Ability Fair Device Used without AD M5 PT-IP Objective Assessments Start: 12/22/18 11:42 Freq: NEEDED Status: Active Protocol: Document 12/23/18 09:57 SAK (Rec: 12/23/18 10:05 [facility] [id number]) Orientation Orientation/Cognition Level of Alertness Alert Orientation Name,Age,Place,Situation Language Function Ability Indonesian as Second Language Safety Awareness Understands Safety Issues Other Assessments Other Other Assessments Has walker at home to use as needed. M6 PT-IP Treatment Start: 12/22/18 11:42 Freq: NEEDED Status: Active Protocol: Document 12/23/18 09:57 SAK (Rec: 12/23/18 10:06 [facility] [id number]) Physical Therapy Treatment Education Education Provided Safety Other Treatments Other Treatment Performed Transfer and gait training as noted. M7 PT-IP Assessment and Plan Start: 12/22/18 11:42 Freq: NEEDED Status: Active Protocol: Document 12/23/18 09:57 SAK (Rec: 12/23/18 10:05 [facility] [id number]) PT Summary Assessment and Plan Goals Bed Mobility Goal Independent Transfer Goal Independent,Front Wheeled Walker Gait Goal Independent,Front Wheel Walker Gait Distance 200 Other Goals increase ambulation without AD 200 ft SBA Days to Meet Goals 3 Frequency of Treatment Frequency Of Treatment Once a Day Treatment Plan Physical Therapy Treatment Plan Bed Mobility Training,Transfer Training,Gait Training, Therapeutic Exercise,Balance Retraining,Discharge Planning, Hot or Cold Pack,Neuromuscular Re-ed,Coordination Retraining ,Manual Therapy Other Recommendations and Next Treatment continue to progress with Focus functional mobility skills. Consider trial gait without assistive device, wearing shoes if available. Recommendations To Nursing Amount of Assist Needed Standby Assistance Discharge Recommendations PT Discharge Recommendations Home with 24/7 Assist,Home Health Equipment Needed for Home Before Has FWW Discharge
--- NOTE | 2018-12-23 14:07 | OT.IP.TRT ---
Current Diagnoses Cholecystitis, unspecified (12/22/18) Surgery Performed Operation Date: 12/23/18 16:45 <No data on this case meets the specified criteria> Occupational Therapy Treatment Note M2 OT-IP Current Condition Start: 12/22/18 16:15 Freq: Status: Active Protocol: Document 12/22/18 09:20 [facility] (Rec: 12/22/18 16:33 [facility] [id number]) Occupational Therapy Current Condition Current Condition Evaluation Date 12/22/18 Treatment Diagnosis Gallstones, weakness Weight Bearing Status Weight Bearing Status Weight Bear as Tolerated M3 OT- IP Subjective and Pain Start: 12/22/18 16:15 Freq: Status: Active Protocol: Document 12/23/18 14:06 [facility] (Rec: 12/23/18 14:07 [facility] [id number]) OT- Subjective Occupational Therapy Visit Type Type Patient Refusal Notes Pt wanting to sleep , per daughter to have surgery later this afternoon. Therefore to check on pt tomorrow.
--- NOTE | 2018-12-23 15:28 | PC.NURSE ---
1500 Pt gone for srinath townsend now via bed.
--- NOTE | 2018-12-23 15:39 | PM.PREOP ---
Pre-operative Note Interval Note History & Physical reviewed/Exam performed by Physician: Yes Changes to H&P: No
[2018-12-23] MEDS: LACTATED RINGERS 1,000 ML 42 ML IV ×2 (15:43→19:49)
--- NOTE | 2018-12-23 16:09 | CM.DANOTE ---
Discharge Planning/Care Management DCP: assessment: case received, EMR reviewed. Discussed in Team Rounds. Pt is an 83 year old female who admitted just after midnight on 12/22. Admission status: OBS: per HERMAN Flood Payer: Medicare and Medicaid. Pt is Cuban speaking with family speaking Indonesian at bedside. Pt admitted to care of hospitalist team. PCP: Marlin Shafer Consulting: [place] Surgeon team: Dr. Munguia seeing pt today. Plan discussed in Team Round: Pt is being treated conservatively with IV antibiotics and watchful waiting by Dr. Munguia. PT/OT ordered, did see pt and reported later in day that pt was cleared for a d/c to home setting. (lives with family). Went to room to check in with pt and family. See that she was taken to surgery at 1500 with plans for a laproscopic cholecystectomy. Will check in tomorrow and follow prn for any d/c needs that may arise. CM Discharge Assessment Start: 12/23/18 16:08 Freq: Status: Active Protocol: Document 12/23/18 16:08 ITV (Rec: 12/23/18 16:09 ITV [id number]) Discharge Planning Assessment Advance Directives? No History Provided By Medical Record Prior Living Arrangements House Household Members family Review Status In Process
--- NOTE | 2018-12-23 16:25 | SUR.OPER ---
Supine on padded OR bed, head on pillow, safety belt at thigh, left arm padded and tucked at side. Right arm secured on padded arm oard <90 degrees abduction. Legs uncrossed. Padded footboard in place. Tape over blanket to secure lower legs.
[2018-12-23] MEDS: BUPIVACAINE 0.5% (PF) VIAL 30 ML INJ (16:54)
[2018-12-23] MEDS: ALBUTEROL 2.5 MG/3 ML NEB (ADULT) INH (17:23)
--- NOTE | 2018-12-23 17:23 | SUR.PHASEI ---
Gave albuterol nebulizer for wheezing.
[2018-12-23] MEDS: fentaNYL 100 MCG/2 ML INJ IV ×2 (17:44→18:01)
--- NOTE | 2018-12-23 17:46 | PM.OP.1 ---
Operative Date/Time/Diagnoses Date of procedure: 12/23/18 Time of procedure: 17:47 Pre-op diagnosis: acute cholecystitis Post-op diagnosis: same Procedure & Clinicians Procedure: laparoscopic cholecystectomy Same procedure as scheduled: Yes Indications: 83-year-old female admitted to the hospital with acute cholecystitis and history of biliary colic. She was tender in the right upper quadrant had an ultrasound that demonstrated a gallstone stuck within the neck of the gallbladder as well as pericholecystic fluid stranding. She has metastatic breast cancer and has received chemotherapy 4 days prior to hospital admission and after discussion with her oncologist he felt that her chemotherapy regimen would have no impact on her surgical outcome in addition he suggested that she had a good prognosis. Initially attempt at managing her cholecystitis with antibiotic therapy was tried but her abdominal pain only slightly improved and after discussion with medicine, oncology the patient and family elected to proceed to surgery Surgeon: Rainer Munguia Breastfeeding Educator: Lesli Arriaga Click Yes if Unassisted: No Anesthesia Type: General Operative Notes Findings: Chronic cholecystitis Specimen(s): other (Gallbladder) Estimated Blood Loss (mL): 30 Procedure in detail: The patient was brought to the operating room placed supine on the table. Bilateral lower extremity compression devices were applied. General anesthesia was induced and they were intubated with an endotracheal tube. They Meropenem prior to skin incision. A time-out was performed to ensure the correct patient procedure necessary equipment within the operating room. They were then prepped and draped in the usual sterile fashion. Infraumbilical incision was made the umbilical stalk was grasped and elevated and the fascia was sharply incised. The abdomen was entered atraumatically. A 10 mm trocar was then placed into the abdomen. Pneumoperitoneum was established. The laparoscopic camera was inserted into the abdomen inspection was made that demonstrated no evidence of injury upon entry. We then placed our working ports the 1st 5 mm port high in the epigastrium and then 2 in the right upper quadrant. The gallbladder was grasped and retracted over the liver and grasped laterally by the fundus. The triangle of Calot was exposed. The gallbladder appearance was consistent with acute on chronic cholecystitis without necrosis. The triangle of calot was then skeletonized using hook electrocautery and demonstrated the cystic duct clearly entering the gallbladder the cystic artery and the liver and in the background. With the critical view of safety established the cystic duct was clipped twice proximally and once distally and then sharply divided and the cystic artery was taken in the same fashion. Next the gallbladder was removed from the liver bed using electro cautery. The liver bed was then inspected for hemostasis and this was achieved. The abdomen was irrigated with sterile saline and inspection was made that showed the clips in good position. The specimen was removed using Endo-Catch. The abdomen was desufflated. The the fascia of the umbilicus was closed with 0 Vicryl in a [id number] fashion. Skin incisions were irrigated and closed with 4-0 Monocryl. The wounds were sealed with Dermabond. Patient emerged from general anesthesia was extubated and transferred to the postoperative care unit missed stable condition. The sponge and instrument count at the end of the operation was correct. Complications: none Post-operative Disposition: observation
--- NOTE | 2018-12-23 17:53 | PM.PN.1 ---
Subjective Subjective Date Patient Seen: 12/23/18 Time Patient Seen: 17:54 Interval history: Abdominal pain failed to improve significantly over the past 24 hours on antibiotics and therefore she went for a laparoscopic cholecystectomy this afternoon Exam Vital Signs (past 8 hours): - 12/23/18 11:45 12/23/18 15:15 12/23/18 17:15 Temperature 98.4 F 97.4 F L 97.6 F Pulse Rate 70 76 78 Respiratory Rate 18 15 15 Blood Pressure 164/74 H 181/75 H 128/67 Pulse Oximetry 98 100 94 12/23/18 17:20 12/23/18 17:25 12/23/18 17:30 Temperature 97.7 F Pulse Rate 78 77 78 Respiratory Rate 14 15 17 Blood Pressure 143/76 H 141/70 H 162/63 H Pulse Oximetry 96 98 96 Fraction of Inspired Oxygen 28 Oxygen Delivery Method Simple Mask Oxygen Flow Rate 10 Narrative Exam Narrative: General adult female alert oriented no acute distress Abdomen soft appropriately tender to palpation incisions clean dry intact Objective Labs Result Diagrams: 12/23/18 06:57 12/23/18 06:57 Labs: Laboratory Results - last 24 hr 12/23/18 12/23/18 12/23/18 06:57 06:57 06:57 WBC 2.2 L RBC 2.56 L Hgb 9.7 L Hct 28.0 L MCV 109.1 H MCH 37.8 H MCHC 34.6 RDW 15.8 H Plt Count 113 L Neut % (Auto) 49.4 L Lymph % (Auto) 32.8 [place] % (Auto) 16.1 H Eos % (Auto) 0.4 L Baso % (Auto) 1.3 Neut # (Auto) 1100 L Lymph # (Auto) 700 L [place] # (Auto) 400 Eos # (Auto) 0 Baso # (Auto) 0 Sodium 140 Potassium 3.3 L Chloride 109 H Carbon Dioxide 24 BUN 10 Creatinine 0.70 Estimated GFR > 60.0 BUN/Creatinine Ratio 14.3 Glucose 95 Calcium 8.1 L Magnesium 1.6 Procalcitonin 28.10 H Assessment & Plan Assessment & Plan narrative: 83-year-old female with acute cholecystitis and metastatic breast cancer postoperative day 0 status post laparoscopic cholecystectomy doing well. Gallbladder appearance was consistent with acute on chronic cholecystitis. Operation otherwise unremarkable. Diet as tolerated and likely discharge 12/24. Quality VTE Deep Vein Thrombosis/Pulmonary Embolism Present on Admission: No
--- NOTE | 2018-12-23 18:55 | SUR.PHASEI ---
Pt transferred to room 209 via bed. Last vital signs stable, pt resting comfortably; see flowsheet documentation for details. Report given to DEVAGUHN Cuellar prior to transfer. Polo at bedside upon arrival to room 209; handoff assessment completed. Polo to assume care of pt at this time.
[2018-12-23] MEDS: ONDANSETRON 4 MG/2 ML INJ IV (19:48)
[2018-12-23] MEDS: BENZOCAINE/MENTHOL 1 LOZ PKT 1 EACH PO (19:49)
[2018-12-23] MEDS: KETOROLAC 10 MG TABLET PO (21:55)
[2018-12-24 00:40] VITALS: BP 124/64; PULSE 84; RESP 20; TEMP 36.5; O2SAT 98
--- NOTE | 2018-12-24 00:54 | PC.NURSE ---
Addendum entered by Ariella Womack R.N. 12/24/18 06:33: Slept most of night. Sat now at 98%. Still denies pain this morning. Weight checked after bed rezeroed and is 73.8 which is up 10.1kg so will have day shift rezero bed again when up next to verify as weight was obtained by same ASSET RECOVERY SPECIALIST past 2 days. Addendum entered by Ariella Womack R.N. 12/24/18 04:18: O2 titrated down to 1L/min earlier this shift in attempt to wean off oxygen and had been maintaining sats > 92% but now when checked sat is 89% so O2 increased back to 2L/min. Original Note: Patient is alert and oriented. Daughter at bedside to interpret as patient is [place] speaking only. Breath sounds CTA with sat of 98%; currently on 2L/min oxygen per NC. HRR with telemetry reading of SR. Denies nausea. BT present but denies flatus. Lap sites x4, dermabonded and without redness; some bruising around right lateral and umbilical sites. Also has bruising on lower abdomen. Abdomen is soft but tender although denies pain. Denies dysuria, frequency or urgency but does state she has stress incontinence. Able to move self in bed and is up to bathroom with 1 assist (no assistive device used) due to weakness. Wearing bilateral SCD's. Is on continuous pulse oximetry. Remains on chemo precautions. Fall risk score is moderate; bed alarm is activated for safety.
[2018-12-24 04:20] VITALS: O2SAT 89
[2018-12-24] MEDS: MEROPENEM 1 GM/50 ML PIGGYBACK IV ×2 (05:19→12:58)
[2018-12-24 05:25] VITALS: BP 132/64; PULSE 79; RESP 19; TEMP 36.7; O2SAT 98
[2018-12-24 08:00] VITALS: O2SAT 93
[2018-12-24 08:05] VITALS: BP 125/53; PULSE 72; RESP 18; TEMP 36.9; O2SAT 93
[2018-12-24 08:50] LABS: Add Manual Diff / Slide Review NO; Basophils Absolute Auto 0 /uL (0-100); Basophils Percent Auto 0.1 % (0-2); Eosinophils Absolute Auto 0 /uL (0-450); Hematocrit 27.6 % (36-46); Hemoglobin 9.6 g/dL (12.0-16.0); Lymphocytes Absolute Auto 400 /uL (1100-4500); Mean Corpuscular HGB Conc 34.8 % (30-36); Mean Corpuscular Hemoglobin 37.5 PG (26-34); Monocytes Absolute Auto 200 /uL (0-900); Monocytes Percent Auto 6.7 % (3-14); Neutrophils Absolute Auto 2000 /uL (1500-7000); Neutrophils Percent Auto 79.2 % (50-75); Platelet Count 120 X10^3/uL (150-400); Red Blood Cell Count 2.56 X10^6/uL (4.0-5.2); Red Cell Distribution Width 15.7 % (11.6-14.8); White Blood Cell Count 2.6 X10^3/uL (4.5-11.0)
[2018-12-24 09:04] LABS: Alanine Aminotransferase 33 IU/L (9-52); Albumin 3.8 g/dL (3.5-5.0); Albumin Globulin Ratio 1.5 (1.0-2.8); Alkaline Phosphatase 53 U/L (38-126); Aspartate Aminotransferase 40 IU/L (14-36); BUN Creatinine Ratio 17.1 (6-22); Bilirubin Total 0.8 mg/dL (0.2-1.3); Blood Urea Nitrogen 12 mg/dL (7-17); Calcium 8.7 mg/dL (8.4-10.2); Carbon Dioxide 24 mmol/L (22-32); Chloride 105 mmol/L (98-107); Estimated Glomerular Filt Rate > 60.0 mL/min (>60); Globulin 2.5 g/dL (1.7-4.1); Glucose 143 mg/dL (80-110); HEMOLYSIS < 15 (0-50); Magnesium 1.7 mg/dL (1.6-2.3); Potassium 3.8 mmol/L (3.4-5.1); Sodium 140 mmol/L (137-145); Total Protein 6.3 g/dL (6.3-8.2)
[2018-12-24] MEDS: KETOROLAC 10 MG TABLET PO (09:54)
[2018-12-24] MEDS: PALBOCICLIB 125 MG 125 EACH PO (09:56)
[2018-12-24] MEDS: EXEMESTANE 25 MG TABLET PO (09:56)
[2018-12-24] MEDS: PANTOPRAZOLE 40 MG TABLET PO (10:00)
--- NOTE | 2018-12-24 10:17 | PT-IP ANOTE ---
Pt found in chair upon assessment.(0920am) Pt firsly agreed to mobilize with PT. However, pt suddenly felt very nauseated and dizzy . Checked BP 90s/50s HR 80s and SpO2 99%. Informed RN and provided pain meds afterwards. Pt cont to feel discomfort and refused PT at this point. (0945am) Will reattempt PT again this pm.
[2018-12-24 11:05] LABS: Procalcitonin < 0.05 ng/mL (<0.5)
--- NOTE | 2018-12-24 11:19 | PC.NURSE ---
AM shift pt AO and receptive to care. Daughter in room to translate (pt [place] speaking only). On general diet and had some acid reflux after breakfast, protonix PO administered and pt reports it helping. Tele NSR. LR infusing to left hand PIV at 42/hr, IV site is bruised and painful. Labs obtained after requesting a different tech and with some convincing. Crackles and expiratory wheezes to lung lama. 1L O2 titrated to room air after waking up. RA and 99-100%. Toradol for mild/moderate pain. PO Chemo meds administered this AM. Left sided lymphectomy so no BP or lab draws on left. Weight was reported by NOC shift to be off so we have since re-zeroed the bed and will re-weigh when pt returns to bed.
[2018-12-24 12:04] VITALS: BP 107/66; PULSE 69; RESP 18; TEMP 36.6; O2SAT 96
--- NOTE | 2018-12-24 12:25 | OT.IP.TRT ---
Current Diagnoses Cholecystitis, unspecified (12/22/18) Surgery Performed Operation Date: 12/23/18 16:45 Actual Procedures p Laparoscopic Cholecystectomy - Rainer Munguia MD Occupational Therapy Treatment Note M2 OT-IP Current Condition Start: 12/22/18 16:15 Freq: Status: Active Protocol: Document 12/22/18 09:20 [facility] (Rec: 12/22/18 16:33 [facility] [id number]) Occupational Therapy Current Condition Current Condition Evaluation Date 12/22/18 Treatment Diagnosis Gallstones, weakness Weight Bearing Status Weight Bearing Status Weight Bear as Tolerated M3 OT- IP Subjective and Pain Start: 12/22/18 16:15 Freq: Status: Active Protocol: Document 12/24/18 12:12 [facility] (Rec: 12/24/18 12:25 [facility] [id number]) OT- Subjective Occupational Therapy Visit Type Type Treatment Note Visit Start Time 11:30 Visit Stop Time 12:10 Total Visit Minutes 40 Occupational Therapy Visit Comments Patient Comments Pt wanting to shower. OT Pain Assessment Pain When Pain Assessed At Rest Pain Present Pain Present Denied Pain M4 OT- IP ADL's Start: 12/22/18 16:15 Freq: Status: Active Protocol: Document 12/24/18 12:12 [facility] (Rec: 12/24/18 12:25 [facility] [id number]) OT ADL-Dressing General Eval Lower Body Dressing Ability Maximum Assistance Areas Needing Assistance Underpants/Brief,Socks OT ADL-Bathing Bathing Type Bathing Type Shower General Evaluation Bathing Ability Moderate Assistance Areas Needing Assistance Wash/Dry Back,Wash/Dry Perineal Area,Wash/Dry Lower Extremities Devices Bathing Equipment Hand Held Shower Sprayer, Shower Chair with Arms,Grab Bars Comments OT Bathing Comments Pt tired from having surgery and therefore wanting assist to shower , however participate and do 1/2 of the shower on her own. M5 OT- IP IADL's Start: 12/22/18 16:15 Freq: Status: Active Protocol: Document 12/22/18 09:20 [facility] (Rec: 12/22/18 16:33 [facility] [id number]) OT-Instrumental Activities of Daily Living Home Safety Awareness Home Safety Comments Pt's grand daughter/daughter to assist with all IAdl's at home and now to help with ADL's as needed. M6 OT- IP Functional Cognition Start: 12/22/18 16:15 Freq: Status: Active Protocol: Document 12/24/18 12:12 [facility] (Rec: 12/24/18 12:25 [facility] [id number]) Cognitive Factors Limiting Selfcare Function Cognitive Ability Level of Alertness Alert Patient Orientation Name Attention Span Ability Capable of Focused Attention, Capable of Sustained Attention Ability to Follow Commands Able to Follow One Step Commands Safety Awareness Underestimates Need for Assistance Problem Solving Ability Needs Assist to Identify Solutions Cognitive Comments Cognitive Assessment Comments Pt insisting on not using FWW or any assist. Pt needing CGA and INVESTIGATION SPECIALIST for safety as pt tend to move very fast. M7 OT- IP Mobility and Balance Start: 12/22/18 16:15 Freq: Status: Active Protocol: Document 12/24/18 12:12 [facility] (Rec: 12/24/18 12:25 [facility] [id number]) OT-Transfer Assessment Sit to and From Stand Sit to and from Stand Standby Assistance,Contact Guard Assistance Transfers Transfer Ability Contact Guard Assistance Technique Transfer Destination Bed,Chair,Shower Stall Devices Transfer Assistive Devices None,Front Wheeled Walker Comments Mobility Comments Pt insisting not to use FWW, and therefore having to give her INVESTIGATION SPECIALIST to walk. M8 OT- IP Objective Assessments Start: 12/22/18 16:15 Freq: Status: Active Protocol: Document 12/22/18 09:20 [facility] (Rec: 12/22/18 16:33 [facility] [id number]) OT Gross Range of Motion Upper Extremity Range of Motion Assessment Within Functional Limits OT Strength Upper Extremity Strength Assessment Within Functional Limits OT-Muscle Tone Assessment Muscle Tone WNL Yes M9 OT- IP Assessment and Plan Start: 12/22/18 16:15 Freq: Status: Active Protocol: Document 12/22/18 09:20 [facility] (Rec: 12/22/18 16:33 [facility] [id number]) OT Summary Assessment and Plan Potential Rehabilitation Potential Good Analytic Complexity at Evaluation Low Summary OT Impairments Balance,Functional Mobility, Grooming,Dressing,Toileting, Bathing,Toilet Transfers, Shower Transfers Progress Towards Goals Slow Progress due to Medical Issues,Slow Progress due to Activity Tolerance,Slow Progress due to Cognition Assessment Summary Pt low complexity and main barrier is weakness and decreased balance from gallstones and currently doing chemotherapy. Pt has supportive family to be able to stay and assist her 20/10 for all needs. Pt to discharge home when stable, in addition pt may need FWW, BSC , tub bench/shower chair for home use as not at baseline and needing more assist for all ADl needs. Goals Grooming Goal Independent Dressing Goal Standby Assistance Toileting Goal Independent Bathing Goal Minimal Assistance Toilet Transfer Goal Standby Assistance Shower Transfer Goal Contact Guard Assistance Patient/Caregiver Education Goal Caregiver Independent Assisting Patient Days to Meet Goals 1 Frequency of Treatment Frequency Of Treatment Once a Day Treatment Plan OT Treatment Plan ADL Training,Functional Cognition Training,Functional Mobility,Patient/Family Education,Discharge Planning Other Treatment Recommendations and Next Lower body dressing, ADL Treatment Focus equipment needs Discharge Recommendations OT Discharge Recommendations Home with 20/10 Assist Home Equipment Needs FWW, BSC, tub bench versus shower chair
--- NOTE | 2018-12-24 13:42 | CM.DPC ---
DCP: continued: met with pt's daughter Cheyenne this afternoon after speaking with RN caring for pt. Surgeon Dr Narayanan was here earlier and advised that pt MAY be able to go home later today if + flatus and + BM. Thus far neither of these have occurred. Pt is currently napping. Cheyenne says she expects to be up and walking again after nap and are hopeful she can go home but if not then knows likely tomorrow. She does confirm that granddaughter Oksana is the budget clerk caregiver for pt and family is with pt 20/10. P: home when stable for same.
--- NOTE | 2018-12-24 14:18 | PT.IPTN ---
Current Diagnoses Cholecystitis, unspecified (12/22/18) Surgery Performed Operation Date: 12/23/18 16:45 Actual Procedures p Laparoscopic Cholecystectomy - Rainer Munguia MD Physical Therapy Treatment Note M2 PT-IP Current Condition Start: 12/22/18 11:42 Freq: NEEDED Status: Active Protocol: Document 12/22/18 09:10 [facility] (Rec: 12/22/18 12:01 [facility] [id number]) Physical Therapy Current Condition Current Condition Evaluation Date 12/22/18 Treatment Diagnosis cholecystitis; generalized weakness Onset Date 12/22/18 Precautions Other Precautions Falls M3 PT-IP Subjective Start: 12/22/18 11:42 Freq: NEEDED Status: Active Protocol: Document 12/24/18 14:18 [facility] (Rec: 12/24/18 15:06 [facility] [id number]) Subjective Physical Therapy Visit Type Type Treatment Note Visit Start Time 14:18 Visit Stop Time 14:51 Total Visit Minutes 33 Number of GARMENT MANUFACTURER Visits 0 Physical Therapy Visit Comments Patient Comments found pt sleeping on recliner. pt's daughter present and daughter does not want PT to wake pt up for PT. left pt's room but daughter came in to see PT after <1 min and stated that pt is already awake and wants to walk. Therapy Pain Assessment Pain Present Pain Present Pain Reported Location Lower Abdomen Scale Used little pain per pt Pain Management Techniques Re-positioning,Timing of Activity with Medications M4 PT-IP Mobility and Gait Start: 12/22/18 11:42 Freq: NEEDED Status: Active Protocol: Document 12/24/18 14:18 [facility] (Rec: 12/24/18 15:06 AB [id number]) PT-Transfer Assessment Sit to and From Stand Sit to and from Stand Standby Assistance Gait Assessment Gait Gait Assistance Required: Standby Assistance Distance (Feet) 1,000 Able to Maintain Weight Bearing Status Yes During Gait Assistive Devices Assistive Device Gait Belt,Front Wheeled Walker Orthotic/Prosthetic Devices or Brace: No Factors Limiting Gait Function Factors Limiting Gait Function Pain,Poor Balance,Poor Safety Awareness Comments Gait Comments pt completed ambulation using FWW SBA ~ 1000 ft. completed ambulation without AD in room ~ 12 ft SBA. pt very guarded with ambulation without AD. informed daughter that pt needs to use FWW at home and agreed. Stair Climbing Assessment Evaluation Level of Assist On Stairs Standby Assistance Devices Stair Climbing Assistive Devices Right Railing Technique/Endurance Stair Climbing Direction Ascend and Descend Stair Climbing Technique Step Over Step Number of Steps Climbed 3 Stair Climbing Set # Repetitions (reps) 1 PT-Balance Assessment Sitting Balance and Reactions Static Sitting Balance Ability Good Dynamic Sitting Balance Ability Good Standing Balance and Reactions Static Standing Balance Ability Fair Dynamic Standing Balance Ability Fair Device Used using FWW M5 PT-IP Objective Assessments Start: 12/22/18 11:42 Freq: NEEDED Status: Active Protocol: Document 12/23/18 09:57 [facility] (Rec: 12/23/18 10:05 [facility] [id number]) Orientation Orientation/Cognition Level of Alertness Alert Orientation Name,Age,Place,Situation Language Function Ability Pashto as Second Language Safety Awareness Understands Safety Issues Other Assessments Other Other Assessments Has walker at home to use as needed. M6 PT-IP Treatment Start: 12/22/18 11:42 Freq: NEEDED Status: Active Protocol: Document 12/23/18 09:57 [facility] (Rec: 12/23/18 10:06 [facility] [id number]) Physical Therapy Treatment Education Education Provided Safety Other Treatments Other Treatment Performed Transfer and gait training as noted. M7 PT-IP Assessment and Plan Start: 12/22/18 11:42 Freq: NEEDED Status: Active Protocol: Document 12/24/18 14:18 [facility] (Rec: 12/24/18 15:06 AB [id number]) PT Summary Assessment and Plan Potential Rehabilitation Potential Good Summary Impairments Pain,ROM,Strength,Balance, Cognition,Bed Mobility, Transfers,Gait,Activity Tolerance Progress Towards Goals Progressing Toward Goals Assessment Summary pt underwent lap cholecystectomy yesterday. pt has no significant change in functional mobility since surgery and no re-eval needed. Pt to continue to current goals. pt required SBA with mobility and recommending use of FWW at this time. informed pt and family and agreed. pt will have 24/ assist at home. pt may go home when medically stable. Goals Bed Mobility Goal Independent Transfer Goal Independent,Front Wheeled Walker Gait Goal Independent,Front Wheel Walker Gait Distance 200 Other Goals increase ambulation without AD 200 ft SBA Days to Meet Goals 3 Frequency of Treatment Frequency Of Treatment Once a Day Treatment Plan Physical Therapy Treatment Plan Bed Mobility Training,Transfer Training,Gait Training, Therapeutic Exercise,Balance Retraining,Discharge Planning, Hot or Cold Pack,Neuromuscular Re-ed,Coordination Retraining ,Manual Therapy Other Recommendations and Next Treatment continue to progress with Focus functional mobility skills. Consider trial gait without assistive device, wearing shoes if available. Recommendations To Nursing Amount of Assist Needed Standby Assistance Discharge Recommendations PT Discharge Recommendations Home with 24/7 Assist,Home Health
--- NOTE | 2018-12-24 14:46 | PM.PN.1 ---
Subjective Subjective Date Patient Seen: 12/24/18 Time Patient Seen: 10:50 Interval history: No acute events overnight. Pt tolerated food this AM. Burping frequently, denies flatus or stool since surgery. Denies nausea/vomiting. Pain controlled with pain med. Exam Vital Signs (past 8 hours): - 12/24/18 08:05 12/24/18 12:04 Temperature 98.5 F 98 F Pulse Rate 72 69 Respiratory Rate 18 18 Blood Pressure 125/53 L 107/66 Pulse Oximetry 93 96 Fraction of Inspired Oxygen 28 Oxygen Delivery Method Nasal Cannula Oxygen Flow Rate 0 Narrative Exam Narrative: alert, oriented, comfortable sitting up in chair normal respirations NSR, normal rate abdomen soft, mildly distended, incisions c/d/i appropriately ttp for post op day 1 no jaundice non toxic appearing Objective Labs Result Diagrams: 12/24/18 08:30 12/24/18 08:30 Labs: Laboratory Results - last 24 hr 12/24/18 12/24/18 12/24/18 08:30 08:30 08:30 WBC 2.6 L RBC 2.56 L Hgb 9.6 L Hct 27.6 L MCV 108.0 H MCH 37.5 H MCHC 34.8 RDW 15.7 H Plt Count 120 L Neut % (Auto) 79.2 H D Lymph % (Auto) 14.0 L [place] % (Auto) 6.7 Eos % (Auto) 0.0 L Baso % (Auto) 0.1 Neut # (Auto) 2000 Lymph # (Auto) 400 L [place] # (Auto) 200 Eos # (Auto) 0 Baso # (Auto) 0 Sodium 140 Potassium 3.8 Chloride 105 Carbon Dioxide 24 BUN 12 Creatinine 0.70 Estimated GFR > 60.0 BUN/Creatinine Ratio 17.1 Glucose 143 H Calcium 8.7 Magnesium 1.7 Total Bilirubin 0.8 AST 40 H ALT 33 Alkaline Phosphatase 53 Total Protein 6.3 Albumin 3.8 Globulin 2.5 Albumin/Globulin Ratio 1.5 Procalcitonin < 0.05 Assessment & Plan Assessment & Plan narrative: 83 yo woman POD#1 s/p urgent lap belinda for acute cholecystitis. Doing well. Plan: advance diet as tolerated bowel regimen PO pain med ambulate as tolerated ok for discharge home when pain is well controlled without IV pain med, and pt is able to ambulate safely, and has evidence of return of bowel function (BM/flatus/tolerate PO) Time Spent With Patient Time with patient: 15-24 minutes Quality VTE Deep Vein Thrombosis/Pulmonary Embolism Present on Admission: No
--- NOTE | 2018-12-24 16:13 | P.DS_ITS ---
History of Present Illness History of Present Illness Date Patient Seen: 12/22/18 Chief complaint: abd pain, hx gallstone, nausea Narrative: Written by Henry ZEPEDA: Ms. Lisset Nash is an 83-year-old female patient with a history breast cancer, dizziness and dyspepsia who presents to the ER with complaints of upper abdominal pain. The patient is [place]-speaking and her daughter is at bedside providing translation. The patient provides history of having abdominal pain off and on since May. She had an ultrasound completed on 12/15/2018 for evaluation of her pain which revealed cholelithiasis with a positive Rueda sign and a normal bile duct measuring 4.4 mm. Following that exam the patient had worsening of symptoms developing nausea but no vomiting. The patient additionally reports 1 week ago having back pain with pain radiating to her left arm and chest pressure. She also had associated shortness of breath at the time. She states the discomfort lasted approximately 2 days and has completely resolved. Patient denies complaints of headaches, fevers or chills. She does complain of dizziness using soliz for support but uses no assistive devices and has sustained no recent falls. She has no further chest pain or shortness of breath and denies palpitations cough or wheezing. She has abdominal pain as above with intermittent nausea but reports no vomiting. She has no diarrhea and tends towards constipation. Upon arrival to the ER she has a temperature of 98.0?, heart rate of 71, blood pressure 133/81, respirations 12 saturating 99% on room air. The patient has repeat ultrasound of the gallbladder which we demonstrates cholelithiasis with wall thickening and a positive Rueda suggestive of cholecystitis and a large stone lodged in the gallbladder neck. On laboratory analysis she has a low white count 2.4 and a hemoglobin of 10.8 and hematocrit of 31 point platelets 142. Chemistry to with the of 14 and creatinine is 0.8 a nonfasting glucose of 123. Her liver functions reveal a total bili of 0.8, AST of 22, ALT of 14 and alkaline phosphatase of 60. Her lipase is 20. Dr. Torres is consulted by the emergency department. The choices made in conjunction with surgery to treat with antibiotics and the patient received cefotetan 2 g in the ER. She also received Dilaudid for pain. The patient is admitted to the hospital for cholelithiasis with acute cholecystitis. ]\ Discharge Providers Provider Date of admission: 12/22/18 00:47 Discharge Date: 12/24/18 Primary care physician: Marlin Shafer PA-C Consults: 12/22/18 02:25 Consult to Discharge Planning Routine Comment: Consult to Physician Routine Comment: Consulting Provider: Rainer Torres Reason for consultation: Cholecystitis, cholelithiasis Has provider been notified: Yes 12/22/18 03:34 Consult to Respiratory Therapy Evaluate & Treat Comment: Wheezing Physician Instructions: Evaluate and treat 12/22/18 04:29 Consult to Occupational Therapy Evaluate & Treat Comment: Dizziness, unsteady gait Physician Instructions: Evaluate and treat Consult to Physical Therapy Evaluate & Treat Comment: Dizziness, unsteady gait Physician Instructions: Evaluate and Treat 12/22/18 07:54 Consult to General Surgery Routine Comment: Consulting Provider: Rainer Torres Reason for consultation: Cholecystitis, cholangitis Has provider been notified: Yes Discharge provider: Eulalia Zhao DO Summary Hospital Course Discharge Diagnosis: 1. Acute cholecystitis with cholangitis, status post cholecystectomy, present on admission. Resolved. 2. Metastatic right breast cancer status post VATS with pleurodesis for recurrent right pleural effusion, present on admission. Stable. 3. Dizziness, chronic, present on admission. Stable. Hospital Course: Lisset Nash is an 83-year-old female [place] speaking only with a past medical history significant for GERD and stable metastatic right breast cancer status post right VATS and pleurodesis for recurrent pleural effusion on palbociclib and exemstane who presented to the ED with complaints of right upper quadrant abdominal pain. 1. Acute cholecystitis with cholangitis, status post cholecystectomy, present on admission. Resolved. -Patient has had an interval change between abdominal ultrasounds which demonstrated new thickening of the gallbladder wall, positive Rueda sign, and an occlusive gallstone lodged at the gallbladder neck. -Continued pain management with morphine 1-2 mg every 4 hours as needed for severe pain switch to hydrocodone 5-325 mg every 6 hours and provided temporary script at discharge. -Discontinued IV fluid hydration as patient is adequately hydrated. -General surgery, Dr. Torres, was consulted and performed cholecystectomy. Discontinued meropenem 1 g every 8 hours status post surgical removal. -Slowly advanced diet which patient tolerated well. Patient passing flatus and surgery cleared for discharge home. 2. Metastatic right breast cancer status post VATS with pleurodesis for recurrent right pleural effusion, present on admission. Stable. -Continued exemestane 25 mg daily and palbociclib 125 mg in which new round began day prior to admission. -Continued chemotherapeutic cautions in place. -Discussed her case with her oncologist fellow Dr. Chavez her oncologist Dr. Palma who related that her metastatic breast cancer has been quite stable and recent restaging scans show stability and should not permit her from having cholestectomy if needed. If her ANC falls below 1000 may stop palbociclib and if less than 500 may give G-CSF for which she has never required either. Current ANC 1073. 3. Dizziness, chronic, present on admission. Stable. -Patient uses soliz and furniture for support in her home setting. She uses no devices for ambulation and has had no recent falls. -Continued PT and OT evaluation and treatment. Status at Discharge Overall status at discharge: patient is back to baseline Exam Vital Signs (past 8 hours): - 12/24/18 12:04 Temperature 98 F Pulse Rate 69 Respiratory Rate 18 Blood Pressure 107/66 Pulse Oximetry 96 Fraction of Inspired Oxygen 28 Oxygen Delivery Method Room Air Oxygen Flow Rate 0 Narrative Exam Narrative: General: Elderly female sitting in bedside chair and in no acute distress, well-developed, well-nourished, appropriately interactive. HEENT: Normocephalic, atraumatic. External ears without defect. Pupils equal, round, and reactive to light. Anicteric sclerae, moist conjunctivae, and no lid lag. Oropharynx free of erythema and cobble stoning with moist mucosa. Neck: Supple with full range of motion. No jugular venous distension. No bruits. No lymphadenopathy or thyromegaly. Cardiovascular: Regular rate and rhythm without murmurs, rubs, or gallops appreciated. Pulmonary: Clear to auscultation bilaterally without crackles, wheezes, or rhonchi. Normal respiratory effort with no use of accessory muscles. Abdomen: Soft, bowel sounds present, nontender, nondistended. Laparoscopic surgical sites appear clean, dry, and healing without surrounding erythema. Extremities: No clubbing, cyanosis, or edema. Skin: Normal temperature, turgor, and texture; no rash, ulcers, or subcutaneous nodules appreciated. Neurological: Cranial nerves grossly intact. Psychiatric: Normal mood and affect. Appears to be alert and oriented to person, place, and time. Objective Labs Result Diagrams: 12/24/18 08:30 12/24/18 08:30 Labs: Laboratory Results - last 24 hr 12/24/18 12/24/18 12/24/18 08:30 08:30 08:30 WBC 2.6 L RBC 2.56 L Hgb 9.6 L Hct 27.6 L MCV 108.0 H MCH 37.5 H MCHC 34.8 RDW 15.7 H Plt Count 120 L Neut % (Auto) 79.2 H D Lymph % (Auto) 14.0 L Ness % (Auto) 6.7 Eos % (Auto) 0.0 L Baso % (Auto) 0.1 Neut # (Auto) 2000 Lymph # (Auto) 400 L Ness # (Auto) 200 Eos # (Auto) 0 Baso # (Auto) 0 Sodium 140 Potassium 3.8 Chloride 105 Carbon Dioxide 24 BUN 12 Creatinine 0.70 Estimated GFR > 60.0 BUN/Creatinine Ratio 17.1 Glucose 143 H Calcium 8.7 Magnesium 1.7 Total Bilirubin 0.8 AST 40 H ALT 33 Alkaline Phosphatase 53 Total Protein 6.3 Albumin 3.8 Globulin 2.5 Albumin/Globulin Ratio 1.5 Procalcitonin < 0.05 Discharge Plan Discharge Plan Patient Disposition: Home Discharge comment: You are being discharged home. You had your gallbladder removed. You have been prescribed hydrocodone 5-325 mg every 6 hours as needed for pain. You may take Colace (stool softener) 100 mg once or twice daily and MiraLax (osmotic laxative) a half or full dose daily or every other day to keep stool soft and avoid constipation. Continue a chemotherapy as directed by your oncologist. Discharge Med Rec/Prescriptions Prescriptions: New hydrocodone-acetaminophen 5-325 mg Tablet 1 tab PO Q6HR PRN (Reason: Pain, Moderate (4-6)) Qty: 20 RF: 0 polyethylene glycol 3350 17 gram Powder In Packet 8.6 gram PO DAILY PRN (Reason: Constipation) Qty: 30 RF: 0 docusate sodium [DOK] 100 mg Capsule 100 mg PO BID PRN (Reason: Constipation) Qty: 60 RF: 0 Continued exemestane 25 mg tablet 25 mg PO DAILY RF: 0 palbociclib 125 mg capsule 125 mg PO DAILY RF: 0 omeprazole 40 mg capsule,delayed release(DR/EC) 40 mg PO DAILY PRN (Reason: Heartburn) RF: 0 Follow up/Referrals: Marlin Shafer PA-C [Primary Care Provider] - 2 Weeks Rainer Torres MD [Physician] - 01/03/19 3:00 pm (appt 01/03 @ 3:[address] torres please check in 15 minutes prior to your scheduled appointment) Provider Discharge Instructions Diet: Diet as Tolerated and Low-fat Diet comment: Soft diet low in fat and slowly advance as tolerated Activity: Activity as tolerated Visit Report/Discharge Packet Instructions: Eating a Diet Low in Saturated Fat, Trans Fat, and Cholesterol, DI for Heart Failure, DI for Cholecystectomy, DI for Laparoscopy, [facility]: Wound Care Stand Alone Forms: Surgery Discharge Discharge Data Primary Care Provider: Marlin Shafer Quality VTE Deep Vein Thrombosis/Pulmonary Embolism Present on Admission: No
[2018-12-24] MEDS: BISACODYL 10 MG SUPP PR (16:33)
== END 2018-12-24 18:07 | disposition home or self-care (01) | DRG 417 ==
LOC: ED 22:48 → AC 12-22 00:48
PROVIDERS: Internal Medicine; Surgery; Admitting Provider Nurse Practitioner Adult Health; Emergency Provider Emergency Medicine; PCP Student in an Organized Health Care Education/Training Program; Visit Provider Nurse Practitioner Adult Health
PROC: 0FT44ZZ Resection of Gallbladder, Percutaneous Endoscopic Approach (ICD-10-PCS; CPT 47562; principal; 2018-12-23 16:45)
DX: K80.12 Calculus of gallbladder with acute and chronic cholecystitis without obstruction (principal); D61.810 Antineoplastic chemotherapy induced pancytopenia; J91.0 Malignant pleural effusion; K83.09 Other cholangitis; D61.818 Other pancytopenia; C50.919 Malignant neoplasm of unspecified site of unspecified female breast; R42 Dizziness and giddiness; T45.1X5A Adverse effect of antineoplastic and immunosuppressive drugs, initial encounter
CPT/HCPCS: 36415; 47562; 76705; 80048; 80053; 80061; 81001; 81003; 83690; 83735; 84145; 84484; 85025; 85610; 85730; 87086; 93005; 93010; 94640; 94760; 94762; 96365; 96366; 96375; 97116; 97162; 97165; 97530; 97535; 99233; 99283; 99284; J0330; J1100; J1170; J1644; J2185; J2405; J2704; J3010; J7613; J7614

== ENCOUNTER → 2019-02-22 11:37 | Outpatient (CLI) | payer MEDICARE, MEDICAID, SELFPAY ==
[2019-02-14 09:43] VITALS: BMI 28.0
[2019-02-22 12:13] LABS: BUN Creatinine Ratio 15.6 (6-22); Blood Urea Nitrogen 14 mg/dL (7-17); Estimated Glomerular Filt Rate 59.7 mL/min (>60)
--- NOTE | 2019-02-22 12:50 | DI.CT.S_ITS ---
PROCEDURE: CT CHEST ABD PEL W CON INDICATIONS: RUQ pain hx of pleurodesis and cholecystectomy TECHNIQUE: After the administration of oral and intravenous contrast, 5 mm thick sections acquired from the lung apices to the symphysis. 5 mm coronal and sagittal reformats were performed, with additional 7 mm coronal MIP reformats through the lungs. For radiation dose reduction, the following was used: automated exposure control, adjustment of mA and/or kV according to patient size. COMPARISON: [facility], CT, CT ANGIO CHEST PE PROTOCOL, 08/26/2018, 13:54. [facility], CT, CT ANGIO CHEST PE PROTOCOL, 02/13/2018, 15:10. [facility], CT, CT CHEST ABD PEL W CON, 01/13/2018, 12:02. FINDINGS: Image quality: Excellent. CHEST: Lungs and pleura: No acute consolidation. There is slight decrease in size of the spiculated mass involving the right upper lobe measuring 1.8 x 1.9 cm, previously 2.0 x 2.3 cm. However, right upper lobe posterior pleural mass is slightly increased in thickness measuring 2.2 x 1.0 cm, previously 2.3 x 0.4 cm. Internal low attenuation raise the possibility that this could be loculated pleural fluid There is also more conspicuous appearance of pleural nodule measuring 1.1 cm seen on image 161 series 3 in the posterior superior segment of the right lower lobe. Previously this measured 0.8 cm. There is diffuse right pleural increased attenuation presumably from prior pleurodesis. Diffuse scarring and atelectasis. However, there is increase in ill-defined patchy consolidation and interseptal thickening seen primarily within the right lung base, which is technically nonspecific No pneumothorax. No definite pleural effusion. Mediastinum: Heart size is normal. No pericardial effusion. No mediastinal or hilar adenopathy by size criteria. Calcified right hilar and mediastinal lymph nodes. Thoracic aorta and central pulmonary arteries are normal in size. Esophagus is normal in caliber. No hiatal hernia. Chest wall: No axillary or supraclavicular adenopathy by size criteria. Thyroid gland negative. Right breast postsurgical changes. Right breast post surgical changes. ABDOMEN: Solid organs: Liver is normal in size and enhancement. Gallbladder surgically absent. Biliary system is non dilated. Pancreas enhances normally. Spleen is normal in size and enhancement. No adrenal nodules. Kidneys demonstrate normal size and enhancement, without hydronephrosis. Peritoneum and bowel: Bowel loops demonstrate normal wall thickness and caliber. No free fluid or air. Nodes and vessels: No retroperitoneal or mesenteric adenopathy by size criteria. Aorta and inferior vena cava are normal in size. Miscellaneous: No ventral hernias. PELVIS: Genitourinary: Bladder wall thickness is normal. Miscellaneous: No inguinal hernias or adenopathy. Bones: Redemonstration of thoracic spine osseous metastases. There also sclerotic metastases involving the right first and seventh ribs, left femur. There is mild anterior wedging of the T11 vertebral body, which appears unchanged IMPRESSION: Slight decrease in size of the spiculated right upper lobe nodule since 08/26/18 Slight increase in right pleural nodularity and possibly loculated pleural fluid as discussed above. Technically cannot exclude metastatic lesions however recommend close attention to this area on subsequent surveillance studies. Differential includes evolving postsurgical changes related to right pleurodesis. There is also increase in right basilar ill-defined and patchy opacities which could also be post inflammatory or evolving postsurgical sequela, although cannot exclude early lymphangitic spread of tumor. Osseous metastases as before. Dictated by: Willie Scott M.D. on 02/22/2019 at 14:36 Approved by: Willie Scott M.D. on 02/22/2019 at 15:40
== END ==
PROVIDERS: Family Provider Student in an Organized Health Care Education/Training Program; PCP Student in an Organized Health Care Education/Training Program; Visit Provider Surgery
DX: C79.51 Secondary malignant neoplasm of bone (principal); C80.1 Malignant (primary) neoplasm, unspecified; R91.8 Other nonspecific abnormal finding of lung field; R10.11 Right upper quadrant pain; R07.9 Chest pain, unspecified; Z90.49 Acquired absence of other specified parts of digestive tract
CPT/HCPCS: 36415; 71260; 74177; 82565; 84520; Q9967

== ENCOUNTER → 2019-10-20 10:20 | Outpatient (CLI) | payer MEDICARE, MEDICAID, SELFPAY ==
[2019-02-14 09:43] VITALS: BMI 28.0
[2019-10-20 11:31] LABS: Add Manual Diff / Slide Review NO; Basophils Absolute Auto 100 /uL (0-100); Basophils Percent Auto 3.1 % (0-2); Eosinophils Absolute Auto 0 /uL (0-450); Eosinophils Percent Auto 1.1 % (2-4); Hematocrit 32.5 % (36-46); Lymphocytes Absolute Auto 900 /uL (1100-4500); Lymphocytes Percent Auto 33.9 % (25-40); Mean Corpuscular HGB Conc 33.9 % (30-36); Mean Corpuscular Hemoglobin 37.5 PG (26-34); Mean Corpuscular Volume 110.6 fL (80-100); Monocytes Absolute Auto 200 /uL (0-900); Monocytes Percent Auto 5.6 % (3-14); Neutrophils Absolute Auto 1500 /uL (1500-7000); Neutrophils Percent Auto 56.3 % (50-75); Platelet Count 196 X10^3/uL (150-400); Red Blood Cell Count 2.94 X10^6/uL (4.0-5.2); Red Cell Distribution Width 14.7 % (11.6-14.8); White Blood Cell Count 2.8 X10^3/uL (4.5-11.0)
[2019-10-20 12:05] LABS: Alanine Aminotransferase 15 IU/L (<35); Albumin 4.2 g/dL (3.5-5.0); Albumin Globulin Ratio 1.6 (1.0-2.8); Alkaline Phosphatase 66 U/L (38-126); Aspartate Aminotransferase 24 IU/L (14-36); BUN Creatinine Ratio 19.4 (6-22); Bilirubin Total 0.7 mg/dL (0.2-1.3); Blood Urea Nitrogen 19 mg/dL (7-17); Calcium 9.4 mg/dL (8.4-10.2); Carbon Dioxide 29 mmol/L (22-32); Chloride 106 mmol/L (98-107); Cholesterol 209 mg/dL (140-199); Estimated Glomerular Filt Rate 54.1 mL/min (>60); Globulin 2.6 g/dL (1.7-4.1); Glucose 104 mg/dL (80-110); HDL Cholesterol 54 mg/dL (40-60); HEMOLYSIS < 15 (0-50); LDL Cholesterol Calculated 127 mg/dL (<100); Macrocytosis 2+; Potassium 4.8 mmol/L (3.4-5.1); Sodium 140 mmol/L (137-145); Total Protein 6.8 g/dL (6.3-8.2); Triglycerides 141 mg/dL (35-150)
== END ==
PROVIDERS: Family Provider Student in an Organized Health Care Education/Training Program; PCP Student in an Organized Health Care Education/Training Program; Referring Provider Student in an Organized Health Care Education/Training Program; Visit Provider Student in an Organized Health Care Education/Training Program
DX: Z13.220 Encounter for screening for lipoid disorders (principal); I10 Essential (primary) hypertension; C50.911 Malignant neoplasm of unspecified site of right female breast
CPT/HCPCS: 36415; 80053; 80061; 85025

== ENCOUNTER 2020-01-12 20:16 | Emergency (ER) | payer MEDICARE, MEDICAID, SELFPAY ==
[2019-02-14 09:43] VITALS: BMI 28.0
[2020-01-12] VITALS (9 sets, daily range): BP systolic 107–138; BP diastolic 56–59; PULSE 72–87; RESP 18–24; TEMP 37–38; O2SAT 93–99; BMI 24.0
--- NOTE | 2020-01-12 20:26 | ED_ITS ---
HPI - General Adult General Chief complaint: Shortness of Breath/Dyspnea Stated complaint: STATES PNEUMONIA Time Seen by Provider: 01/12/20 20:20 History of Present Illness HPI narrative: 84-year-old woman with a history of breast cancer, prior pulmonary effusions treated with pleurodesis, known metastatic disease including lesions in her lungs presents with 2 weeks of increasing cough. She was seen over a week ago by at urgent care, Covid test was negative she was started on azithromycin. Does not feel that she is getting better, was seen at urgent care again this morning and a chest x-ray was reportedly done that indicated a pneumonia. At that point they felt she had failed outpatient therapy and sent her to the emergency department for further evaluation. Given her cancer history the known lung lesions and prior pleurodesis with cough persisting now for [address] scan is indicated and pulmonary embolism is certainly within the differential. Related Data Home Medications Medication Instructions Recorded Confirmed exemestane 25 mg PO DAILY 04/01/18 02/16/19 palbociclib 125 mg PO DAILY 04/01/18 02/16/19 omeprazole 40 mg PO DAILY PRN 12/22/18 02/16/19 Previous Rx's Medication Instructions Recorded docusate sodium [DOK] 100 mg PO BID PRN #60 cap 12/24/18 hydrocodone-acetaminophen 1 tab PO Q6HR PRN #20 tab 12/24/18 polyethylene glycol 3350 8.6 gram PO DAILY PRN #30 each 12/24/18 benzonatate [Tessalon Perles] 100 mg PO BID PRN #20 cap 01/12/20 prednisone 20 mg PO DAILY #11 tab 01/12/20 Allergies Allergy/AdvReac Type Severity Reaction Status Date / Time Penicillins [PENICILLINS] Allergy Unknown Verified 01/12/20 20:28 Review of Systems Review of Systems Narrative: Increasing weakness Exertional dyspnea that is better when lying flat No chest pain Cough is nonproductive there is no wheeze No nausea vomiting diarrhea or significant weight change Chronic back pain with known metastatic vertebral lesions, post pale eat of radiation treatment in November of 2019 No syncope or dizziness Patient History Medical History Breast cancer (Acute) Cholecystitis (Acute) Surgical History History of appendectomy (Acute) History of (Acute) History of thoracentesis (Acute) Social History household members: family Smoking Status: Never smoker alcohol intake: current substance use type: does not use Smoking Status: Never smoker alcohol intake frequency: holidays/special occasions only Substance Use Type: does not use Exam Narrative Exam Narrative: General: Frail, in no acute distress. Able to speak in full sentences HEENT: Moist mucous membranes, normal sclera with reactive pupils, Neck: No JVD, supple Respiratory: Lungs with scattered bibasilar crackles, no rub, no rhonchi and no significant wheeze Full and symmetrical air movement Cardiac: Regular rate and rhythm no murmurs no bruits Abdomen: Soft nontender good bowel tones, no flank pain Skin: Warm and dry, no rashes Neurologic: Grossly neurologically intact with no obvious asymmetries or abnormalities Extremities: No trauma, well perfused, no lower extremity edema Psych: Cooperative, appropriate insight and affect Initial Vital Signs Initial Vital Signs: Vital Signs Temperature 100.4 F H 01/12/20 20:21 Pulse Rate 87 01/12/20 20:21 Respiratory Rate 23 01/12/20 20:21 Blood Pressure 138/59 L 01/12/20 20:21 Pulse Oximetry 93 01/12/20 20:21 Course Orders Ordered: ED Orders 01/12/20 20:30 Complete Blood Count AUTO DIFF Stat Comprehensive Metabolic Panel Stat Lactate (Lactic Acid) Stat NT-proBNP (BNP-Adult 18+) Stat Procalcitonin Stat Troponin I Stat 01/12/20 20:49 Urinalysis and Microscopic Stat 01/12/20 20:50 CT angio chest PE protocol Stat 01/12/20 21:07 Blood Culture Stat Sodium Chloride (Normal Saline 0.9%) 1,000 mls @ 150 mls/hr IV CONT MAC Last Admin: 01/12/20 20:57 Dose: 150 mls/hr Documented by: ERNESTO Discontinued Medications Benzonatate (Tessalon Perles) 100 mg PO NOW ONE Stop: 01/12/20 20:50 Last Admin: 01/12/20 20:57 Dose: 100 mg Documented by: ERNESTO Vital Signs Vital signs: Vital Signs - 8 hr 01/12/20 20:21 01/12/20 20:46 01/12/20 21:00 Temperature 100.4 F H Pulse Rate 87 85 83 Respiratory Rate 23 22 24 Blood Pressure 138/59 L Pulse Oximetry 93 98 97 01/12/20 21:01 01/12/20 21:41 01/12/20 21:44 Temperature Pulse Rate 84 78 77 Respiratory Rate 24 18 21 Blood Pressure 117/56 L 118/56 L Pulse Oximetry 97 99 99 Medical Decision Making Medical Records Medical records reviewed: Yes I reviewed the patient's medical records. Lab Data Lab results reviewed: Yes I reviewed the patient's lab results. Result diagrams: 01/12/20 20:30 01/12/20 20:30 Labs: Lab Results 01/12/20 01/12/20 01/12/20 Range/Units 20:30 20:30 20:30 WBC 3.7 L (4.5-11.0) X10^3/uL RBC 2.09 L (4.0-5.2) X10^6/uL Hgb 7.9 L (12.0-16.0) g/dL Hct 23.2 L (36-46) % MCV 111.0 H (80-100) fL MCH 37.9 H (26-34) PG MCHC 34.1 (30-36) % RDW 16.7 H (11.6-14.8) % Plt Count 254 (150-400) X10^3/uL Neut % (Auto) 81.3 H (50-75) % Lymph % (Auto) 10.9 L (25-40) % [place] % (Auto) 5.3 (3-14) % Eos % (Auto) 0.8 L (2-4) % Baso % (Auto) 1.7 (0-2) % Neut # (Auto) 3000 (7055-4610) /uL Lymph # (Auto) 400 L (4960-8077) /uL [place] # (Auto) 200 (0-900) /uL Eos # (Auto) 0 (0-450) /uL Baso # (Auto) 100 (0-100) /uL RBC Morphology See below Macrocytosis 2+ H Sodium 134 L (137-145) mmol/L Potassium 4.0 (3.4-5.1) mmol/L Chloride 101 (98-107) mmol/L Carbon Dioxide 27 (22-32) mmol/L BUN 16 (7-17) mg/dL Creatinine 0.90 (0.52-1.04) mg/dL Estimated GFR 59.7 L (>60) mL/min BUN/Creatinine Ratio 17.8 (6-22) Glucose 205 H (80-110) mg/dL Lactate (0.7-2.1) mmol/L Calcium 8.8 (8.4-10.2) mg/dL Total Bilirubin 0.6 (0.2-1.3) mg/dL AST 48 H (14-36) IU/L ALT 31 (<35) IU/L Alkaline Phosphatase 86 (38-126) U/L Troponin I < 0.012 (0.01-0.034) ng/mL NT-Pro-B Natriuret Pep 268 (<450) pg/mL Total Protein 6.7 (6.3-8.2) g/dL Albumin 3.7 (3.5-5.0) g/dL Globulin 3.0 (1.7-4.1) g/dL Albumin/Globulin Ratio 1.2 (1.0-2.8) Procalcitonin < 0.05 (<0.5) ng/mL 10/15/20 Range/Units 20:30 WBC (4.5-11.0) X10^3/uL RBC (4.0-5.2) X10^6/uL Hgb (12.0-16.0) g/dL Hct (36-46) % MCV (80-100) fL MCH (26-34) PG MCHC (30-36) % RDW (11.6-14.8) % Plt Count (150-400) X10^3/uL Neut % (Auto) (50-75) % Lymph % (Auto) (25-40) % [place] % (Auto) (3-14) % Eos % (Auto) (2-4) % Baso % (Auto) (0-2) % Neut # (Auto) (3863-0042) /uL Lymph # (Auto) (9286-4871) /uL [place] # (Auto) (0-900) /uL Eos # (Auto) (0-450) /uL Baso # (Auto) (0-100) /uL RBC Morphology Macrocytosis Sodium (137-145) mmol/L Potassium (3.4-5.1) mmol/L Chloride (98-107) mmol/L Carbon Dioxide (22-32) mmol/L BUN (7-17) mg/dL Creatinine (0.52-1.04) mg/dL Estimated GFR (>60) mL/min BUN/Creatinine Ratio (6-22) Glucose (80-110) mg/dL Lactate 1.9 (0.7-2.1) mmol/L Calcium (8.4-10.2) mg/dL Total Bilirubin (0.2-1.3) mg/dL AST (14-36) IU/L ALT (<35) IU/L Alkaline Phosphatase (38-126) U/L Troponin I (0.01-0.034) ng/mL NT-Pro-B Natriuret Pep (<450) pg/mL Total Protein (6.3-8.2) g/dL Albumin (3.5-5.0) g/dL Globulin (1.7-4.1) g/dL Albumin/Globulin Ratio (1.0-2.8) Procalcitonin (<0.5) ng/mL Imaging Data CT scan - chest: Radiologist's Impression: FINDINGS: Image quality: Excellent. Pulmonary arteries: Pulmonary arteries are normal in size, and demonstrate no intraluminal filling defects to suggest central pulmonary embolism. Lungs and pleura: Patient's known 1.8 x 1.9 centimeter spiculated mass in medial aspect of right upper lobe now measures 1.9 x 2 cm in size on the current study series 5, image 74. Previously described 2.2 x 1 cm posterior pleural right lower lobe mass now measures up to 2.6 x 1.1 cm in size with diffusely hypodense appearance suggestive of loculated effusion. Compared to previous study, there is interval development of extensive airspace and ground-glass opacities following bronchovascular distribution with associated bronchiectasis predominantly in lower lobes suggestive of extensive bilateral pulmonary infiltrates and pneumonitis. No significant pleural effusion is seen. No gross pneumothorax. Central and peripheral airways are patent. Mediastinum: Heart size is enlarged, without pericardial effusion. No mediastinal or hilar adenopathy. Thoracic aorta is normal in caliber and enhancement. Esophagus is normal in caliber, with a small hiatal hernia. Bones and chest wall: Sclerotic areas are noted involving T6 and T7 vertebral bodies concerning for metastatic lesions unchanged from previous study. Sclerotic lesions involving right 1st and 7th ribs are again seen, unchanged from prior study. Focal sclerotic area involving left posterior 7th rib is also seen ill-defined sclerosis is also noted involving mid to lateral portion of the clavicle No signs of pathologic fracture. 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 Chronic appearing anterior wedge compression deformity at T11 level is again seen in unchanged from prior study. Thyroid gland is within normal limits. No axillary or supraclavicular adenopathy. Abdomen: Visualized upper abdominal solid organs appear normal in the early arterial phase of enhancement. IMPRESSION: 1. No evidence of pulmonary emboli. No thoracic aortic aneurysm or dissection. 2. Interval slight increase in size of patient's known spiculated right upper lobe mass. Interval slight increase in the loculated effusion along posterior medial aspect of right lower lobe. 3. Interval development of extensive airspace opacities and ground-glass opacities throughout bilateral lung lama more prominent in mid to lower lung lama suggestive of extensive pulmonary infiltrates and pneumonitis. No pneumothorax. 4. No definite mediastinal or hilar lymphadenopathy by size criteria. 5. Multiple sclerotic bony metastasis as above. This is not significantly changed from previous study in 2019. No gross pathologic fracture. Dictated by: Kevin Wilson M.D. on 01/12/2020 at 21:52 ECG Data Attestation: I personally reviewed and interpreted this ECG as follows: Interpretation: Sinus rhythm at a rate of 89 Normal intervals, normal axis No acute STT wave changes MDM Narrative Medical decision making narrative: Anemia that is worse since September with hemoglobin dropped from 11-7.9 and hematocrit dropping from 32.5-23.2 no obvious GI blood loss reported. Likely explains the exertional dyspnea she is currently experiencing. No suggestion of significant infection with mildly lower white blood cell count and normal procalcitonin. No suggestion of pulmonary embolism, acute coronary syndrome or congestive heart failure. CT scan shows to spiculated lesions both slightly larger, no pulmonary embolism andextensive airspace opacities and ground-glass opacities throughout bilateral lung lama more prominent in mid to lower lung lama suggestive of extensive pulmonary infiltrates and pneumonitis. As antibiotics have not been effective and lab work does not suggest significant infection, will treat the pulmonary infiltrates and pneumonitis with a course of steroids (prednisone 20 mg daily for 7 days then 10 mg for 8 days) and ask her to follow-up with her oncologist as scheduled for later this week. Will n neisha to review the increasing anemia as well as the chest CT findings. She is scheduled for CT scans and PET studies on January 17 as well. Discharge Plan Departure Patient Disposition: Home Clinical Impression: Pneumonitis, Lung mass, Exertional dyspnea Anemia Qualifiers: Anemia type: unspecified type Qualified Code(s): D64.9 - Anemia, unspecified Activity Restrictions/Additional Instructions: Thank you for coming in today. There is no evidence of acute infection, pulmonary embolism, heart attack or heart failure. The two lung masses do look like they have gotten slightly larger. There is some other inflammatory changes in the bottom part of your lungs as well. I am going to suggest that you take prednisone 20 mg daily for 7 days then 10 mg daily for 8 days. For the cough you can continue to use the Tessalon Perles I also found that your red blood cell count is lower than it had been previous ly. This may be why your more out of breath when your walking. Without any signs of blood loss it concerns me that your body isn't making enough red blood cells any more. I have given you copies of my note today, the lab work and the CT exam results for you to share with your oncologist at your next appointment. I wish you the best Prescriptions: New prednisone 20 mg tablet 20 mg PO DAILY Qty: 11 RF: 0 benzonatate [Tessalon Perles] 100 mg capsule 100 mg PO BID PRN (Reason: cough) Qty: 20 RF: 0 No Action exemestane 25 mg tablet 25 mg PO DAILY RF: 0 palbociclib 125 mg capsule 125 mg PO DAILY RF: 0 omeprazole 40 mg capsule,delayed release(DR/EC) 40 mg PO DAILY PRN (Reason: Heartburn) RF: 0 hydrocodone-acetaminophen 5-325 mg Tablet 1 tab PO Q6HR PRN (Reason: Pain, Moderate (4-6)) Qty: 20 RF: 0 polyethylene glycol 3350 17 gram Powder In Packet 8.6 gram PO DAILY PRN (Reason: Constipation) Qty: 30 RF: 0 docusate sodium [DOK] 100 mg Capsule 100 mg PO BID PRN (Reason: Constipation) Qty: 60 RF: 0 Referrals: Marlin Shafer PA-C [Primary Care Provider] -
--- NOTE | 2020-01-12 20:50 | DI.CT.S_ITS ---
PROCEDURE: CT ANGIO CHEST PE PROTOCOL INDICATIONS: cough, ? PE, known metastatic breast to lung/bone TECHNIQUE: After the administration of intravenous contrast, 2 mm thick sections acquired from the pulmonary apices to the posterior costophrenic angles. 3-dimensional maximum intensity projection (MIP) coronal and sagittal reformats were then acquired through the thorax. For radiation dose reduction, the following was used: automated exposure control, adjustment of mA and/or kV according to patient size. COMPARISON: [facility], CT, CT CHEST ABD PEL W CON, 02/22/2019, 12:45. [facility], CT, CT ANGIO CHEST PE PROTOCOL, 08/26/2018, 13:54. FINDINGS: Image quality: Excellent. Pulmonary arteries: Pulmonary arteries are normal in size, and demonstrate no intraluminal filling defects to suggest central pulmonary embolism. Lungs and pleura: Patient's known 1.8 x 1.9 centimeter spiculated mass in medial aspect of right upper lobe now measures 1.9 x 2 cm in size on the current study series 5, image 74. Previously described 2.2 x 1 cm posterior pleural right lower lobe mass now measures up to 2.6 x 1.1 cm in size with diffusely hypodense appearance suggestive of loculated effusion. Compared to previous study, there is interval development of extensive airspace and ground-glass opacities following bronchovascular distribution with associated bronchiectasis predominantly in lower lobes suggestive of extensive bilateral pulmonary infiltrates and pneumonitis. No significant pleural effusion is seen. No gross pneumothorax. Central and peripheral airways are patent. Mediastinum: Heart size is enlarged, without pericardial effusion. No mediastinal or hilar adenopathy. Thoracic aorta is normal in caliber and enhancement. Esophagus is normal in caliber, with a small hiatal hernia. Bones and chest wall: Sclerotic areas are noted involving T6 and T7 vertebral bodies concerning for metastatic lesions unchanged from previous study. Sclerotic lesions involving right 1st and 7th ribs are again seen, unchanged from prior study. Focal sclerotic area involving left posterior 7th rib is also seen ill-defined sclerosis is also noted involving mid to lateral portion of the clavicle No signs of pathologic fracture. 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 Chronic appearing anterior wedge compression deformity at T11 level is again seen in unchanged from prior study. Thyroid gland is within normal limits. No axillary or supraclavicular adenopathy. Abdomen: Visualized upper abdominal solid organs appear normal in the early arterial phase of enhancement. IMPRESSION: 1. No evidence of pulmonary emboli. No thoracic aortic aneurysm or dissection. 2. Interval slight increase in size of patient's known spiculated right upper lobe mass. Interval slight increase in the loculated effusion along posterior medial aspect of right lower lobe. 3. Interval development of extensive airspace opacities and ground-glass opacities throughout bilateral lung lama more prominent in mid to lower lung lama suggestive of extensive pulmonary infiltrates and pneumonitis. No pneumothorax. 4. No definite mediastinal or hilar lymphadenopathy by size criteria. 5. Multiple sclerotic bony metastasis as above. This is not significantly changed from previous study in 2019. No gross pathologic fracture. Dictated by: Kevin Wilson M.D. on 01/12/2020 at 21:52 Approved by: Kevin Wilson M.D. on 01/12/2020 at 22:02
[2020-01-12] MEDS: BENZONATATE 100 MG CAPSULE PO (20:57)
[2020-01-12] MEDS: SODIUM CHLORIDE 0.9% 1,000 ML 150 ML IV (20:57)
[2020-01-12 21:00] LABS: Add Manual Diff / Slide Review NO; Basophils Absolute Auto 100 /uL (0-100); Basophils Percent Auto 1.7 % (0-2); Eosinophils Absolute Auto 0 /uL (0-450); Eosinophils Percent Auto 0.8 % (2-4); Hematocrit 23.2 % (36-46); Hemoglobin 7.9 g/dL (12.0-16.0); Lymphocytes Absolute Auto 400 /uL (1100-4500); Lymphocytes Percent Auto 10.9 % (25-40); Mean Corpuscular HGB Conc 34.1 % (30-36); Mean Corpuscular Hemoglobin 37.9 PG (26-34); Monocytes Absolute Auto 200 /uL (0-900); Monocytes Percent Auto 5.3 % (3-14); Neutrophils Absolute Auto 3000 /uL (1500-7000); Neutrophils Percent Auto 81.3 % (50-75); Platelet Count 254 X10^3/uL (150-400); Red Blood Cell Count 2.09 X10^6/uL (4.0-5.2); Red Cell Distribution Width 16.7 % (11.6-14.8); White Blood Cell Count 3.7 X10^3/uL (4.5-11.0)
[2020-01-12 21:03] LABS: Lactate (Lactic Acid) 1.9 mmol/L (0.7-2.1)
[2020-01-12 21:05] LABS: Alanine Aminotransferase 31 IU/L (<35); Albumin 3.7 g/dL (3.5-5.0); Albumin Globulin Ratio 1.2 (1.0-2.8); Alkaline Phosphatase 86 U/L (38-126); Aspartate Aminotransferase 48 IU/L (14-36); BUN Creatinine Ratio 17.8 (6-22); Bilirubin Total 0.6 mg/dL (0.2-1.3); Blood Urea Nitrogen 16 mg/dL (7-17); Calcium 8.8 mg/dL (8.4-10.2); Carbon Dioxide 27 mmol/L (22-32); Chloride 101 mmol/L (98-107); Estimated Glomerular Filt Rate 59.7 mL/min (>60); Glucose 205 mg/dL (80-110); HEMOLYSIS < 15 (0-50); Sodium 134 mmol/L (137-145); Total Protein 6.7 g/dL (6.3-8.2)
[2020-01-12 21:16] LABS: NT-proBNP (BNP-Adult 18+) 268 pg/mL (<450); Troponin I < 0.012 ng/mL (0.01-0.034)
[2020-01-12 21:24] LABS: Procalcitonin < 0.05 ng/mL (<0.5)
[2020-01-12 21:25] LABS: Macrocytosis 2+
[2020-01-12] MEDS: predniSONE 20 MG TABLET 40 MG PO (22:34)
== END 2020-01-12 22:49 | disposition home or self-care (01) ==
PROVIDERS: Emergency Provider Emergency Medicine; Family Provider Student in an Organized Health Care Education/Training Program; PCP Student in an Organized Health Care Education/Training Program
DX: J18.9 Pneumonia, unspecified organism (principal); R91.8 Other nonspecific abnormal finding of lung field; R06.09 Other forms of dyspnea; D64.9 Anemia, unspecified; D72.819 Decreased white blood cell count, unspecified
CPT/HCPCS: 36415; 71275; 80053; 83605; 83880; 84145; 84484; 85025; 87040; 93005; 96360; 96361; 99284; Q9967

== ENCOUNTER 2020-04-09 15:28 | Observation (INO) | payer MEDICARE, MEDICAID, SELFPAY ==
[2019-02-14 09:43] VITALS: BMI 28.0
[2020-04-09] VITALS (11 sets, daily range): BP systolic 149–185; BP diastolic 74–93; PULSE 78–90; RESP 18–25; TEMP 36.7–36.8; O2SAT 95–98; BMI 30.2
--- NOTE | 2020-04-09 15:40 | DI.RAD.S_ITS ---
PROCEDURE: XR CHEST 1V INDICATIONS: suspected sepsis TECHNIQUE: One view of the chest was acquired. COMPARISON: [facility], CR, XR CHEST 1V, 05/21/2018, 16:02. [facility], CR, XR CHEST 1V, 08/26/2018, 12:36. FINDINGS: Surgical changes and devices: None. Lungs and pleura: Right basilar airspace opacity. No pleural effusions or pneumothorax. Mediastinum: Mediastinal contours appear normal. Heart size is normal. Bones and chest wall: No suspicious bony lesions. Overlying soft tissues appear unremarkable. IMPRESSION: There is a right basilar airspace opacity consistent with atelectasis or pneumonia. Dictated by: Pavel Alfonso M.D. on 04/09/2020 at 16:19 Approved by: Pavel Alfonso M.D. on 04/09/2020 at 16:22
[2020-04-09 16:23] LABS: Hematocrit 33.8 % (36-46); Hemoglobin 10.8 g/dL (12.0-16.0); Mean Corpuscular HGB Conc 31.8 % (30-36); Mean Corpuscular Volume 103.8 fL (80-100); Platelet Count 170 X10^3/uL (150-400); Red Blood Cell Count 3.26 X10^6/uL (4.0-5.2); Red Cell Distribution Width 16.7 % (11.6-14.8); White Blood Cell Count 9.1 X10^3/uL (4.5-11.0)
[2020-04-09 16:27] LABS: INR 0.9 (0.9-1.3)
--- NOTE | 2020-04-09 16:27 | ED_ITS ---
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 She has been on a steroid either prednisone her methylprednisolone for over a month. Daughter states that she has had increasing dizziness lightheadedness increased urination and thirst. She checked her glucose today at home and it was more than 500. She is still having some chest discomfort as well. Daughter states that she gets dizzy and lightheaded and has some facial numbness at times. MD complaint: chest pain Onset (ago): month(s) Duration: constant Related Data Home Medications Medication Instructions Recorded Confirmed ibuprofen 800 mg PO BID 04/09/20 04/09/20 prednisone 20 mg PO DAILY 04/09/20 04/09/20 Allergies Allergy/AdvReac Type Severity Reaction Status Date / Time Penicillins [PENICILLINS] Allergy Unknown Verified 04/09/20 19:29 Review of Systems Constitutional Constitutional: Denies body ache(s), Denies chills and Denies fever(s) Cardiovascular Cardiovascular: Reports as per HPI, Reports chest pain, Reports leg edema, Reports dyspnea on exertion and Reports orthopnea Respiratory Respiratory: Reports as per HPI and Reports dyspnea on exertion Integumentary/Breasts Skin/Breast: Denies pruritus, Denies erythema, Denies rash and Denies wounds Endocrine Endocrine: Reports polydipsia Hematologic/Lymphatic Hematologic/Lymphatic: Reports as per HPI Patient History Medical History Breast cancer Cholecystitis Surgical History History of appendectomy History of History of thoracentesis Family History Son Pancreatic cancer Brother Parkinson disease Alzheimer disease Social History household members: family Smoking Status: Never smoker alcohol intake: never substance use type: does not use Smoking Status: Never smoker alcohol intake frequency: holidays/special occasions only Substance Use Type: does not use Exam Initial Vital Signs Initial Vital Signs: Vital Signs Temperature 98.3 F 04/09/20 15:46 Pulse Rate 85 04/09/20 15:46 Respiratory Rate 20 04/09/20 15:46 Blood Pressure 157/82 H 04/09/20 15:46 Pulse Oximetry 97 04/09/20 15:46 GENERAL: Alert pleasant 85-year-old female and in no acute distress. HEENT: Head atraumatic,EOMI, pupils reactive, face symmetric, moist mucous membranes CARDIOVASCULAR: Regular rate and rhythm without murmurs, rubs or gallops. RESPIRATORY: Breath sounds equal bilaterally, no wheezes rales or rhonchi. ABDOMEN: Soft, nontender. Normoactive bowel sounds all 4 quadrants. No guarding or rebound. EXTREMITIES: Normal range of motion, no clubbing or edema. Neurovascularly intact NEUROLOGICAL: Alert and oriented x4.Normal gait and speech. Cranial nerves II through XII grossly intact. Good [id number], good [id number], strength equal bilaterally, no dysarthria or aphasia, sensation in tact to soft touch bilaterally, no visual changes, no facial droop SKIN: Warm, dry, no laceration, no petechiae, no rashes or lesions. Course Orders Ordered: Acetaminophen (Acetaminophen 325 Mg Tablet) 650 mg PO Q6HR PRN PRN Reason: Fever/Mild Pain (1-3) Dextrose (Dextrose 50 % In Water 25 Gm/50 Ml Syringe) 25 gm IV PRN PRN PRN Reason: Hypoglycemia Enoxaparin Sodium (Enoxaparin 40 Mg/0.4 Ml Syringe) 40 mg SUBCUT DAILY MAC Ibuprofen (Ibuprofen 600 Mg Tablet) 600 mg PO Q6HR PRN PRN Reason: Fever/Mild Pain (1-3) Last Admin: 04/10/20 05:58 Dose: 600 mg Documented by: MAXIMINO Insulin Aspart (Insulin Aspart 100 Unit/Ml Insuln Pen) 0 unit SUBCUT ACHS [facility]; Protocol Last Admin: 04/09/20 23:39 Dose: 1 unit Documented by: REBECCA Cosigned by: MAXIMINO Insulin Glargine (Insulin Glargine 100 Unit/Ml 3ml Pen) 5 unit SUBCUT 2100 MAC Last Admin: 04/09/20 23:40 Dose: 5 unit Documented by: REBECCA Cosigned by: MAXIMINO Naloxone HCl (Naloxone 0.4 Mg/Ml Vial) 0.2 mg IV Q2MIN PRN PRN Reason: Opiate Reversal Ondansetron HCl (Ondansetron 4 Mg/2 Ml Inj) 4 mg IV Q8HR PRN PRN Reason: Nausea And Vomiting Sodium Chloride (Sodium Chloride 0.9% Flush) 10 ml IV PRN PRN PRN Reason: Flush Sodium Chloride (Sodium Chloride 0.9% Flush) 10 ml IV BID MAC Discontinued Medications Sodium Chloride (Normal Saline 0.9%) 1,000 mls @ 1,000 mls/hr IV BOLUS ONE Stop: 04/09/20 16:39 Last Infusion: 04/09/20 19:45 Dose: 1,000 mls/hr Documented by: Admin: 04/09/20 19:23 Dose: 1,000 mls/hr Documented by: LUANNE Sodium Chloride (Normal Saline 0.9%) 1,000 mls @ 1,000 mls/hr IV BOLUS ONE Stop: 04/09/20 17:40 Last Infusion: 04/09/20 19:23 Dose: 0 mls/hr Documented by: Infusion: 04/09/20 17:24 Dose: 500 mls/hr Documented by: Admin: 04/09/20 17:01 Dose: 1,000 mls/hr Documented by: RINA Sodium Chloride (Normal Saline 0.9%) 1,000 mls @ 1,000 mls/hr IV BOLUS ONE Stop: 04/09/20 18:03 Last Admin: 04/09/20 17:10 Dose: Not Given Documented by: LUANNE Insulin Human Regular (Insulin Regular 100 Unit/Ml 3 Ml Vial) 10 unit SUBCUT NOW ONE Stop: 04/09/20 19:16 Last Admin: 04/09/20 19:39 Dose: 10 unit Documented by: LUANNE Cosigned by: HENRY Ketorolac Tromethamine (Ketorolac 60 Mg/2 Ml Vial) 30 mg IV NOW ONE Stop: 04/09/20 17:05 Last Admin: 04/09/20 17:10 Dose: Not Given Documented by: LUANNE Ondansetron HCl (Ondansetron 4 Mg/2 Ml Inj) 4 mg IV NOW ONE Stop: 04/09/20 17:05 Last Admin: 04/09/20 17:10 Dose: Not Given Documented by: LUANNE Vital Signs Vital signs: Vital Signs - 8 hr 04/09/20 15:46 04/09/20 16:00 04/09/20 16:30 Temperature 98.3 F Pulse Rate 85 87 85 Respiratory Rate 20 24 21 Blood Pressure 157/82 H 149/77 H 153/85 H Pulse Oximetry 97 97 97 04/09/20 17:00 04/09/20 17:30 04/09/20 17:36 Temperature Pulse Rate 85 79 78 Respiratory Rate 25 H 22 23 Blood Pressure 176/93 H 164/83 H Pulse Oximetry 97 97 96 04/09/20 18:00 04/09/20 18:30 Temperature Pulse Rate 87 79 Respiratory Rate 20 23 Blood Pressure 183/87 H 185/88 H Pulse Oximetry 97 98 MDM - Chest Pain Lab Data Attestation: I reviewed the patient's lab results. Result diagrams: 04/10/20 05:33 04/10/20 05:33 Labs: Lab Results 04/09/20 04/09/20 04/09/20 Range/Units 16:08 16:08 16:08 WBC 9.1 (4.5-11.0) X10^3/uL RBC 3.26 L (4.0-5.2) X10^6/uL Hgb 10.8 L (12.0-16.0) g/dL Hct 33.8 L (36-46) % MCV 103.8 H (80-100) fL MCH 33.0 (26-34) PG MCHC 31.8 (30-36) % RDW 16.7 H (11.6-14.8) % Plt Count 170 (150-400) X10^3/uL Neut % (Auto) Not Reportable Lymph % (Auto) Not Reportable [place] % (Auto) Not Reportable Eos % (Auto) Not Reportable Baso % (Auto) Not Reportable Lymph # (Auto) Not Reportable [place] # (Auto) Not Reportable Baso # (Auto) Not Reportable Total Counted 100 Seg Neutrophils % 66.0 (38-70) % Band Neutrophils % 13.0 H (3-7) % Lymphocytes % (Manual) 12.0 L (25-45) % Monocytes % (Manual) 8.0 (2-11) % Metamyelocytes % 1.0 H (-0) % Neutrophils # (Manual) 7189 H (6069-8017) /uL RBC Morphology See below Macrocytosis 1+ H PT 10.0 L (10.1-12.7) SECONDS INR 0.9 (0.9-1.3) APTT 21 L D (26.4-36.2) SECONDS Sodium (137-145) mmol/L Potassium (3.4-5.1) mmol/L Chloride (98-107) mmol/L Carbon Dioxide (22-32) mmol/L BUN (7-17) mg/dL Creatinine (0.52-1.04) mg/dL Estimated GFR (>60) mL/min BUN/Creatinine Ratio (6-22) Glucose (80-110) mg/dL Hemoglobin A1c (4.0-6.0) % Lactate (0.7-2.1) mmol/L Calcium (8.4-10.2) mg/dL Magnesium (1.6-2.3) mg/dL Total Bilirubin (0.2-1.3) mg/dL AST (14-36) IU/L ALT (<35) IU/L Alkaline Phosphatase (38-126) U/L NT-Pro-B Natriuret Pep (<450) pg/mL Total Protein (6.3-8.2) g/dL Albumin (3.5-5.0) g/dL Globulin (1.7-4.1) g/dL Albumin/Globulin Ratio (1.0-2.8) Lipase (23-300) U/L Procalcitonin < 0.05 (<0.5) ng/mL Urine Color Urine Appearance Urine pH (4.5-8.0) Ur Specific [place] (1.000-1.035) Urine Protein (Negative) Urine Glucose (UA) (Negative) g/dL Urine Ketones (NEGATIVE) Urine Occult Blood (Negative) Urine Nitrate (Negative) Urine Bilirubin (NEGATIVE) Urine Urobilinogen (0.2) E.U./dL Ur Leukocyte Esterase (NEGATIVE) Urine RBC (0-5/HPF) Urine WBC (0-5/HPF) Ur Squamous Epith Cells (0-5/HPF) Urine Bacteria (None) Ur Culture Indicated? SARS-CoV-2 (PCR) (Negative) 04/09/20 04/09/20 04/09/20 Range/Units 16:08 16:08 16:08 WBC (4.5-11.0) X10^3/uL RBC (4.0-5.2) X10^6/uL Hgb (12.0-16.0) g/dL Hct (36-46) % MCV (80-100) fL MCH (26-34) PG MCHC (30-36) % RDW (11.6-14.8) % Plt Count (150-400) X10^3/uL Neut % (Auto) Lymph % (Auto) [place] % (Auto) Eos % (Auto) Baso % (Auto) Lymph # (Auto) [place] # (Auto) Baso # (Auto) Total Counted Seg Neutrophils % (38-70) % Band Neutrophils % (3-7) % Lymphocytes % (Manual) (25-45) % Monocytes % (Manual) (2-11) % Metamyelocytes % (-0) % Neutrophils # (Manual) (8302-0180) /uL RBC Morphology Macrocytosis PT (10.1-12.7) SECONDS INR (0.9-1.3) APTT (26.4-36.2) SECONDS Sodium 127 L (137-145) mmol/L Potassium 4.0 (3.4-5.1) mmol/L Chloride 98 (98-107) mmol/L Carbon Dioxide 23 (22-32) mmol/L BUN 21 H (7-17) mg/dL Creatinine 0.66 (0.52-1.04) mg/dL Estimated GFR > 60.0 (>60) mL/min BUN/Creatinine Ratio 31.8 H (6-22) Glucose 455 H (80-110) mg/dL Hemoglobin A1c 10.0 H (4.0-6.0) % Lactate 5.2 H* (0.7-2.1) mmol/L Calcium 8.9 (8.4-10.2) mg/dL Magnesium (1.6-2.3) mg/dL Total Bilirubin 0.3 (0.2-1.3) mg/dL AST 22 (14-36) IU/L ALT 28 (<35) IU/L Alkaline Phosphatase 76 (38-126) U/L NT-Pro-B Natriuret Pep (<450) pg/mL Total Protein 5.6 L (6.3-8.2) g/dL Albumin 3.4 L (3.5-5.0) g/dL Globulin 2.2 (1.7-4.1) g/dL Albumin/Globulin Ratio 1.5 (1.0-2.8) Lipase 381 H (23-300) U/L Procalcitonin (<0.5) ng/mL Urine Color Urine Appearance Urine pH (4.5-8.0) Ur Specific [place] (1.000-1.035) Urine Protein (Negative) Urine Glucose (UA) (Negative) g/dL Urine Ketones (NEGATIVE) Urine Occult Blood (Negative) Urine Nitrate (Negative) Urine Bilirubin (NEGATIVE) Urine Urobilinogen (0.2) E.U./dL Ur Leukocyte Esterase (NEGATIVE) Urine RBC (0-5/HPF) Urine WBC (0-5/HPF) Ur Squamous Epith Cells (0-5/HPF) Urine Bacteria (None) Ur Culture Indicated? SARS-CoV-2 (PCR) (Negative) 04/09/20 04/09/20 04/09/20 Range/Units 16:08 16:08 16:08 WBC (4.5-11.0) X10^3/uL RBC (4.0-5.2) X10^6/uL Hgb (12.0-16.0) g/dL Hct (36-46) % MCV (80-100) fL MCH (26-34) PG MCHC (30-36) % RDW (11.6-14.8) % Plt Count (150-400) X10^3/uL Neut % (Auto) Lymph % (Auto) [place] % (Auto) Eos % (Auto) Baso % (Auto) Lymph # (Auto) [place] # (Auto) Baso # (Auto) Total Counted Seg Neutrophils % (38-70) % Band Neutrophils % (3-7) % Lymphocytes % (Manual) (25-45) % Monocytes % (Manual) (2-11) % Metamyelocytes % (-0) % Neutrophils # (Manual) (8766-8971) /uL RBC Morphology Macrocytosis PT (10.1-12.7) SECONDS INR (0.9-1.3) APTT (26.4-36.2) SECONDS Sodium (137-145) mmol/L Potassium (3.4-5.1) mmol/L Chloride (98-107) mmol/L Carbon Dioxide (22-32) mmol/L BUN (7-17) mg/dL Creatinine (0.52-1.04) mg/dL Estimated GFR (>60) mL/min BUN/Creatinine Ratio (6-22) Glucose (80-110) mg/dL Hemoglobin A1c (4.0-6.0) % Lactate (0.7-2.1) mmol/L Calcium (8.4-10.2) mg/dL Magnesium 1.8 (1.6-2.3) mg/dL Total Bilirubin (0.2-1.3) mg/dL AST (14-36) IU/L ALT (<35) IU/L Alkaline Phosphatase (38-126) U/L NT-Pro-B Natriuret Pep 332 (<450) pg/mL Total Protein (6.3-8.2) g/dL Albumin (3.5-5.0) g/dL Globulin (1.7-4.1) g/dL Albumin/Globulin Ratio (1.0-2.8) Lipase (23-300) U/L Procalcitonin (<0.5) ng/mL Urine Color Urine Appearance Urine pH (4.5-8.0) Ur Specific [place] (1.000-1.035) Urine Protein (Negative) Urine Glucose (UA) (Negative) g/dL Urine Ketones (NEGATIVE) Urine Occult Blood (Negative) Urine Nitrate (Negative) Urine Bilirubin (NEGATIVE) Urine Urobilinogen (0.2) E.U./dL Ur Leukocyte Esterase (NEGATIVE) Urine RBC (0-5/HPF) Urine WBC (0-5/HPF) Ur Squamous Epith Cells (0-5/HPF) Urine Bacteria (None) Ur Culture Indicated? SARS-CoV-2 (PCR) Negative (Negative) 04/09/20 04/09/20 Range/Units 18:25 19:01 WBC (4.5-11.0) X10^3/uL RBC (4.0-5.2) X10^6/uL Hgb (12.0-16.0) g/dL Hct (36-46) % MCV (80-100) fL MCH (26-34) PG MCHC (30-36) % RDW (11.6-14.8) % Plt Count (150-400) X10^3/uL Neut % (Auto) Lymph % (Auto) [place] % (Auto) Eos % (Auto) Baso % (Auto) Lymph # (Auto) [place] # (Auto) Baso # (Auto) Total Counted Seg Neutrophils % (38-70) % Band Neutrophils % (3-7) % Lymphocytes % (Manual) (25-45) % Monocytes % (Manual) (2-11) % Metamyelocytes % (-0) % Neutrophils # (Manual) (6287-1097) /uL RBC Morphology Macrocytosis PT (10.1-12.7) SECONDS INR (0.9-1.3) APTT (26.4-36.2) SECONDS Sodium (137-145) mmol/L Potassium (3.4-5.1) mmol/L Chloride (98-107) mmol/L Carbon Dioxide (22-32) mmol/L BUN (7-17) mg/dL Creatinine (0.52-1.04) mg/dL Estimated GFR (>60) mL/min BUN/Creatinine Ratio (6-22) Glucose (80-110) mg/dL Hemoglobin A1c (4.0-6.0) % Lactate 3.3 H (0.7-2.1) mmol/L Calcium (8.4-10.2) mg/dL Magnesium (1.6-2.3) mg/dL Total Bilirubin (0.2-1.3) mg/dL AST (14-36) IU/L ALT (<35) IU/L Alkaline Phosphatase (38-126) U/L NT-Pro-B Natriuret Pep (<450) pg/mL Total Protein (6.3-8.2) g/dL Albumin (3.5-5.0) g/dL Globulin (1.7-4.1) g/dL Albumin/Globulin Ratio (1.0-2.8) Lipase (23-300) U/L Procalcitonin (<0.5) ng/mL Urine Color Yellow Urine Appearance Clear Urine pH 5.0 (4.5-8.0) Ur Specific [place] <=1.005 (1.000-1.035) Urine Protein Negative (Negative) Urine Glucose (UA) 2+ H (Negative) g/dL Urine Ketones Negative (NEGATIVE) Urine Occult Blood Trace-lysed (Negative) Urine Nitrate Negative (Negative) Urine Bilirubin Negative (NEGATIVE) Urine Urobilinogen 0.2 (0.2) E.U./dL Ur Leukocyte Esterase Negative (NEGATIVE) Urine RBC 0-1/hpf (0-5/HPF) Urine WBC 0-1/hpf (0-5/HPF) Ur Squamous Epith Cells 0-1 /hpf (0-5/HPF) Urine Bacteria None seen (None) Ur Culture Indicated? Cult not indicated SARS-CoV-2 (PCR) (Negative) Point of Care Testing Glucose POC 365 Imaging Data Chest x-ray: Radiologist's Impression: PROCEDURE: XR CHEST 1V INDICATIONS: suspected sepsis TECHNIQUE: One view of the chest was acquired. COMPARISON: [facility], CR, XR CHEST 1V, 05/21/2018, 16:02. [facility] CR, XR CHEST 1V, 08/26/2018, 12:36. FINDINGS: Surgical changes and devices: None. Lungs and pleura: Right basilar airspace opacity. No pleural effusions or pneumothorax. Mediastinum: Mediastinal contours appear normal. Heart size is normal. Bones and chest wall: No suspicious bony lesions. Overlying soft tissues appear unremarkable. IMPRESSION: There is a right basilar airspace opacity consistent with atelectasis or pneumonia. Dictated by: Pavel Alfonso M.D. on 04/09/2020 at 16:19 CT scan - head: Radiologist's Impression: PROCEDURE: CT HEAD/BRAIN WO CON INDICATIONS: dizzy with hx breast ca TECHNIQUE: Noncontrast 4.5 mm thick angled axial sections acquired from the foramen magnum to the vertex, with coronal and sagittal reformats. For radiation dose reduction, the following was used: automated exposure control, adjustment of mA and/or kV according to patient size. COMPARISON: [facility], CT, CT HEAD/BRAIN W CON, 01/13/2018, 12:02. FINDINGS: Image quality: Excellent. CSF spaces: Basal cisterns are patent. No extra-axial fluid collections. The ventricles are symmetric in size and shape. Brain: No intracranial bleeds or masses. There is cerebral volume loss for age, with resultant ventricular and sulcal prominence. There are periventricular and deep white matter chronic small vessel ischemic changes. There is intracranial internal carotid artery atherosclerosis. Skull and face: Calvarium and visualized facial bones appear intact, without suspicious lesions. Sinuses: Visualized sinuses and mastoids are clear. IMPRESSION: 1. CT head without acute intracranial abnormalities or acute calvarial fractures. 2. Age-related senescent changes and sequela of chronic small vessel ischemic disease. If there is high clinical suspicion for metastatic disease to the brain, further evaluation with contrast enhanced MRI of the brain would be more sensitive. Dictated by: Gilbert More M.D. on 04/09/2020 at 16:08 ECG Data Attestation: I personally reviewed and interpreted this ECG as follows: Prior ECG tracings: available for review Interpretation: Sinus rhythm with artifact rate [address] changes disagree with the computer MDM Narrative Medical decision making narrative: Patient is found to be Hyperglycemic. Sodium correction is 133. Hemoglobin A1c is 10. Patient likely has underlying diabetes exacerbated by ongoing steroid use. Lactic acid is 5.2 but at this time does not appear septic. She is afebrile normotensive no normal leukocytosis no source is identified. Blood cultures pending. Possibly from dehydration. At ketones were for added however lab analyses are not available, however patient does not have an anion gap and does not appear to be in DKA. 1845 Hematology-Oncology at [facility] updated on patient's symptoms test results are recommends patient be admitted for better gl ucose control. Patient will follow-up with Endocrine team in [place] with them 1900 , updated patient's symptoms test results agrees with admission. Requests ongoing hydration with normal saline and insulin. Discharge Plan Departure Patient Disposition: Admitted As Inpatient Clinical Impression: Hyperglycemia Admit Date/Time: 04/09/20 19:02 Admit Provider: Prince Jonas
[2020-04-09 16:30] LABS: PTT Partial Thromboplastin Tim 21 SECONDS (26.4-36.2)
[2020-04-09 16:37] LABS: Add Manual Diff / Slide Review YES
[2020-04-09 16:39] LABS: COVID19 -Nasal RAPID Negative (Negative)
[2020-04-09 16:40] LABS: Alanine Aminotransferase 28 IU/L (<35); Albumin 3.4 g/dL (3.5-5.0); Albumin Globulin Ratio 1.5 (1.0-2.8); Alkaline Phosphatase 76 U/L (38-126); Aspartate Aminotransferase 22 IU/L (14-36); BUN Creatinine Ratio 31.8 (6-22); Bilirubin Total 0.3 mg/dL (0.2-1.3); Blood Urea Nitrogen 21 mg/dL (7-17); Calcium 8.9 mg/dL (8.4-10.2); Carbon Dioxide 23 mmol/L (22-32); Chloride 98 mmol/L (98-107); Estimated Glomerular Filt Rate > 60.0 mL/min (>60); Globulin 2.2 g/dL (1.7-4.1); Glucose 455 mg/dL (80-110); HEMOLYSIS 17 (0-50); Lipase 381 U/L (23-300); Sodium 127 mmol/L (137-145); Total Protein 5.6 g/dL (6.3-8.2)
--- NOTE | 2020-04-09 16:41 | DI.CT.S_ITS ---
PROCEDURE: CT HEAD/BRAIN WO CON INDICATIONS: dizzy with hx breast ca TECHNIQUE: Noncontrast 4.5 mm thick angled axial sections acquired from the foramen magnum to the vertex, with coronal and sagittal reformats. For radiation dose reduction, the following was used: automated exposure control, adjustment of mA and/or kV according to patient size. COMPARISON: [facility], CT, CT HEAD/BRAIN W CON, 01/13/2018, 12:02. FINDINGS: Image quality: Excellent. CSF spaces: Basal cisterns are patent. No extra-axial fluid collections. The ventricles are symmetric in size and shape. Brain: No intracranial bleeds or masses. There is cerebral volume loss for age, with resultant ventricular and sulcal prominence. There are periventricular and deep white matter chronic small vessel ischemic changes. There is intracranial internal carotid artery atherosclerosis. Skull and face: Calvarium and visualized facial bones appear intact, without suspicious lesions. Sinuses: Visualized sinuses and mastoids are clear. IMPRESSION: 1. CT head without acute intracranial abnormalities or acute calvarial fractures. 2. Age-related senescent changes and sequela of chronic small vessel ischemic disease. If there is high clinical suspicion for metastatic disease to the brain, further evaluation with contrast enhanced MRI of the brain would be more sensitive. Dictated by: Gilbert More M.D. on 04/09/2020 at 16:08 Approved by: Gilbert More M.D. on 04/09/2020 at 16:13
[2020-04-09 16:44] LABS: Macrocytosis 1+; Neutrophils Absolute Manual 7189 /uL (3000-5900); Total Cells Counted 100
[2020-04-09 16:50] LABS: Lactate (Lactic Acid) 5.2 mmol/L (0.7-2.1)
[2020-04-09 17:01] LABS: NT-proBNP (BNP-Adult 18+) 332 pg/mL (<450)
[2020-04-09] MEDS: SODIUM CHLORIDE 0.9% 1,000 ML 1000 ML IV ×2 (17:01→19:23)
[2020-04-09 17:02] LABS: Procalcitonin < 0.05 ng/mL (<0.5)
[2020-04-09 18:15] LABS: Reflexed Lactate in 2 Hours Y
[2020-04-09 18:31] LABS: Bacteria Urine None Seen
[2020-04-09 18:34] LABS: Appearance Urine UA CLEAR; Bilirubin Urine UA NEGATIVE (NEGATIVE); Color Urine UA YELLOW; Glucose Urine UA 2+ g/dL (Negative); Ketones Urine UA NEGATIVE (NEGATIVE); Leukocyte Esterase Urine UA NEGATIVE (NEGATIVE); Nitrite Urine UA NEGATIVE (Negative); Occult Blood Urine UA TRACE-LYSED (Negative); Protein Urine UA NEGATIVE (Negative); Specific Gravity Urine UA <=1.005 (1.000-1.035); Urobilinogen Urine UA 0.2 E.U./dL (0.2)
[2020-04-09 18:51] LABS: Culture Indicated Urine Cult Not Indicated; RBC Urine 0-1/HPF (0-5/HPF); Squamous Epithelial Cell Urine 0-1 /HPF (0-5/HPF); WBC Urine 0-1/HPF (0-5/HPF)
--- NOTE | 2020-04-09 18:55 | PC.NURSE ---
Medication reconciliation completed w/ patients daughter (primary caregiver).
[2020-04-09 19:22] LABS: Lactate 2HR (Lactic Acid Rflx) 3.3 mmol/L (0.7-2.1)
[2020-04-09] MEDS: INSULIN REGULAR 100 UNIT/ML 3 ML VIAL 10 UNIT SUBCUT (19:39)
[2020-04-09 22:39] LABS: Magnesium 1.8 mg/dL (1.6-2.3)
--- NOTE | 2020-04-09 22:42 | PM.HP.1 ---
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 She is currently on palbociclib and exemestane and in February of 2020 had developed a drug-induced pneumonitis. Her granddaughter who is also her caregiver translates and provides a history. She states that since starting on the prednisone patient was complaining of being thirsty all the time, peeing a lot, having ?murky? vision, right-sided numbness in her face, dry skin, and took her blood sugar and it was in the 500s this morning. She also complains of itchiness of the medial aspect of both forearms, and dry skin on her legs. She complains of right foot numbing. Review of [facility] indicates that she is currently having palliative radiation to the metastatic lesions in her spine. Granddaughter states that they want her to return for a full body PET scan prior to doing that. Due to the drug-induced pneumonitis likely from palbociclib, she was initiated on Methylprednisone 48 mg and then reduced to 32 mg. This was discontinued at the end of January. Apparently she has been on 40 mg of prednisone when seen at her oncologist's as of March 20 of last year. She was then put on prednisone 30 mg for 1 month and then followed by 20 mg for 1 month with discontinuance of palbociclib and she and to follow up with the same day chest CT. Apparently she had discontinued the prednisone due to weakness and fatigue. In the ED they did a chest x-ray which indicated right basilar airspace opacity consistent with atelectasis or pneumonia. She is afebrile, blood pressure 159/74, heart rate 90, respiratory rate 23, oxygen saturation 98% on room air, she weighs 68 kg with a BMI of 30.2. WBC is 9.1, RBC 3.26, hemoglobin 10.8, hematocrit 33.8, platelets 170, she has a mild left shift of 7189 neutrophil count, sodium 127, potassium 4.0, chloride 98, CO2 23, BUN 21, creatinine 0.66, GFR greater than 60, glucose is 155, her hemoglobin A1c is 10, she had an elevated lactate at 3.3, calcium is 8.9, magnesium 1.8, liver enzymes are within normal limits, mildly elevated lipase of 381, procalcitonin is negative, and she is spilling glucose into her urine. COVID-19 PCR is negative. Patient History Medical History Breast cancer Cholecystitis Surgical History History of appendectomy History of History of thoracentesis Family & Social History Family History Son Pancreatic cancer Brother Parkinson disease Alzheimer disease Social History: household members family Prior Living Arrangements House Safety & Behavioral: Feels Safe in Current Yes Environment Been Physically Hurt or No Threatened By a Person Suicidal Ideation Description None Suicide Plan Description No Plan Tobacco & Substance use: Smoking Status Never smoker alcohol intake never alcohol intake frequency holiday/special occasion Substance Use Type does not use Meds Home Medications and Allergies Home Medications Medication Instructions Recorded Confirmed Type ibuprofen 800 mg PO BID 04/09/20 04/09/20 History prednisone 20 mg PO DAILY 04/09/20 04/09/20 History Allergies Allergy/AdvReac Type Severity Reaction Status Date / Time Penicillins [PENICILLINS] Allergy Unknown Verified 04/09/20 19:29 Review of Systems Review of Systems ROS: Yes All systems reviewed with the patient and are negative except as otherwise documented Exam Vital Signs (past 8 hours): - 04/09/20 15:46 04/09/20 16:00 04/09/20 16:30 Temperature 98.3 F Pulse Rate 85 87 85 Respiratory Rate 20 24 21 Blood Pressure 157/82 H 149/77 H 153/85 H Pulse Oximetry 97 97 97 04/09/20 17:00 04/09/20 17:30 04/09/20 17:36 Temperature Pulse Rate 85 79 78 Respiratory Rate 25 H 22 23 Blood Pressure 176/93 H 164/83 H Pulse Oximetry 97 97 96 04/09/20 18:00 04/09/20 18:30 04/09/20 19:00 Temperature Pulse Rate 87 79 85 Respiratory Rate 20 23 21 Blood Pressure 183/87 H 185/88 H 169/81 H Pulse Oximetry 97 98 97 04/09/20 19:30 Temperature Pulse Rate 90 Respiratory Rate 23 Blood Pressure 159/74 H Pulse Oximetry 98 Oxygen Delivery Method Room Air Narrative Exam Narrative: Gen: Alert, oriented, ill appearing 85 y.o. female, anxious HEENT: normocephalic, atraumatic, conjunctiva clear, sclera non-icteric, oral mucosa pink and moist Neck: supple, full ROM, no JVD, trachea is midline Resp: Lungs sounds are diminished but clear, non-labored breathing CV: RRR, no murmur or rubs Abd: soft, non-tender, normoactive BTs Skin: no lesions or rashes, dry and intact Neuro: Alert and oriented X 4 w/no focal deficits. Speech clear and coherent. Extremities: Dry and flaky skin on her lower extremities, moves all 4 extremities, is ambulatory, negative Jimmy?s sign Psyche: normal mood and affect. Objective Labs Result Diagrams: 04/09/20 16:08 04/09/20 16:08 Labs: Laboratory Results - last 24 hr 04/09/20 04/09/20 04/09/20 16:08 16:08 16:08 WBC 9.1 RBC 3.26 L Hgb 10.8 L Hct 33.8 L MCV 103.8 H MCH 33.0 MCHC 31.8 RDW 16.7 H Plt Count 170 Neut % (Auto) Not Reportable Lymph % (Auto) Not Reportable [place] % (Auto) Not Reportable Eos % (Auto) Not Reportable Baso % (Auto) Not Reportable Lymph # (Auto) Not Reportable [place] # (Auto) Not Reportable Baso # (Auto) Not Reportable Total Counted 100 Seg Neutrophils % 66.0 Band Neutrophils % 13.0 H Lymphocytes % (Manual) 12.0 L Monocytes % (Manual) 8.0 Metamyelocytes % 1.0 H Neutrophils # (Manual) 7189 H RBC Morphology See below Macrocytosis 1+ H PT 10.0 L INR 0.9 APTT 21 L D Sodium Potassium Chloride Carbon Dioxide BUN Creatinine Estimated GFR BUN/Creatinine Ratio Glucose Hemoglobin A1c Lactate Calcium Total Bilirubin AST ALT Alkaline Phosphatase NT-Pro-B Natriuret Pep Total Protein Albumin Globulin Albumin/Globulin Ratio Lipase Procalcitonin < 0.05 Urine Color Urine Appearance Urine pH Ur Specific [place] Urine Protein Urine Glucose (UA) Urine Ketones Urine Occult Blood Urine Nitrate Urine Bilirubin Urine Urobilinogen Ur Leukocyte Esterase Urine RBC Urine WBC Ur Squamous Epith Cells Urine Bacteria Ur Culture Indicated? SARS-CoV-2 (PCR) 04/09/20 04/09/20 04/09/20 16:08 16:08 16:08 WBC RBC Hgb Hct MCV MCH MCHC RDW Plt Count Neut % (Auto) Lymph % (Auto) [place] % (Auto) Eos % (Auto) Baso % (Auto) Lymph # (Auto) [place] # (Auto) Baso # (Auto) Total Counted Seg Neutrophils % Band Neutrophils % Lymphocytes % (Manual) Monocytes % (Manual) Metamyelocytes % Neutrophils # (Manual) RBC Morphology Macrocytosis PT INR APTT Sodium 127 L Potassium 4.0 Chloride 98 Carbon Dioxide 23 BUN 21 H Creatinine 0.66 Estimated GFR > 60.0 BUN/Creatinine Ratio 31.8 H Glucose 455 H Hemoglobin A1c 10.0 H Lactate 5.2 H* Calcium 8.9 Total Bilirubin 0.3 AST 22 ALT 28 Alkaline Phosphatase 76 NT-Pro-B Natriuret Pep Total Protein 5.6 L Albumin 3.4 L Globulin 2.2 Albumin/Globulin Ratio 1.5 Lipase 381 H Procalcitonin Urine Color Urine Appearance Urine pH Ur Specific [place] Urine Protein Urine Glucose (UA) Urine Ketones Urine Occult Blood Urine Nitrate Urine Bilirubin Urine Urobilinogen Ur Leukocyte Esterase Urine RBC Urine WBC Ur Squamous Epith Cells Urine Bacteria Ur Culture Indicated? SARS-CoV-2 (PCR) 04/09/20 04/09/20 04/09/20 16:08 16:08 18:25 WBC RBC Hgb Hct MCV MCH MCHC RDW Plt Count Neut % (Auto) Lymph % (Auto) [place] % (Auto) Eos % (Auto) Baso % (Auto) Lymph # (Auto) [place] # (Auto) Baso # (Auto) Total Counted Seg Neutrophils % Band Neutrophils % Lymphocytes % (Manual) Monocytes % (Manual) Metamyelocytes % Neutrophils # (Manual) RBC Morphology Macrocytosis PT INR APTT Sodium Potassium Chloride Carbon Dioxide BUN Creatinine Estimated GFR BUN/Creatinine Ratio Glucose Hemoglobin A1c Lactate Calcium Total Bilirubin AST ALT Alkaline Phosphatase NT-Pro-B Natriuret Pep 332 Total Protein Albumin Globulin Albumin/Globulin Ratio Lipase Procalcitonin Urine Color Yellow Urine Appearance Clear Urine pH 5.0 Ur Specific [place] <=1.005 Urine Protein Negative Urine Glucose (UA) 2+ H Urine Ketones Negative Urine Occult Blood Trace-lysed Urine Nitrate Negative Urine Bilirubin Negative Urine Urobilinogen 0.2 Ur Leukocyte Esterase Negative Urine RBC 0-1/hpf Urine WBC 0-1/hpf Ur Squamous Epith Cells 0-1 /hpf Urine Bacteria None seen Ur Culture Indicated? Cult not indicated SARS-CoV-2 (PCR) Negative 04/09/20 19:01 WBC RBC Hgb Hct MCV MCH MCHC RDW Plt Count Neut % (Auto) Lymph % (Auto) [place] % (Auto) Eos % (Auto) Baso % (Auto) Lymph # (Auto) [place] # (Auto) Baso # (Auto) Total Counted Seg Neutrophils % Band Neutrophils % Lymphocytes % (Manual) Monocytes % (Manual) Metamyelocytes % Neutrophils # (Manual) RBC Morphology Macrocytosis PT INR APTT Sodium Potassium Chloride Carbon Dioxide BUN Creatinine Estimated GFR BUN/Creatinine Ratio Glucose Hemoglobin A1c Lactate 3.3 H Calcium Total Bilirubin AST ALT Alkaline Phosphatase NT-Pro-B Natriuret Pep Total Protein Albumin Globulin Albumin/Globulin Ratio Lipase Procalcitonin Urine Color Urine Appearance Urine pH Ur Specific [place] Urine Protein Urine Glucose (UA) Urine Ketones Urine Occult Blood Urine Nitrate Urine Bilirubin Urine Urobilinogen Ur Leukocyte Esterase Urine RBC Urine WBC Ur Squamous Epith Cells Urine Bacteria Ur Culture Indicated? SARS-CoV-2 (PCR) Assessment & Plan Assessment & Plan narrative: Lisset Nash is an unfortunate 85 y.o. female with ER +/AL +/HER-2 stage IV metastatic breast cancer and has developed drug induced hyperglycemia with an A1c of 10. She will be placed into observation to better control her glucoses at present and for management at home. Diabetes type 2 new dx, secondary to high dose steroid use -Carb control diet -Dietary consult and diabetic education ordered -Start Lantus 5 units in the evening with medium dose correctional insulin -IVF NS at 100 ml/hour ER +/AL +/HER-2 stage IV metastatic breast cancer, seen at [facility] -Will need to coordinate treatment and set up for close follow-up. They are likely to want her to undergo PET scanning at their facility Palliative care -Discussion at [facility] was deferred at her last visit -Consider palliative care consult while in house with patient and her family. I did not discuss this with the family tonight. VTE prophylaxis: Wells risk score: 1 Enoxaparin 40 mg subQ daily Consults: none Consider Palliative Care consult Patient is observation status as her stay is not likely to exceed 2 midnights. FEN: NS at 100 ml/hour, carb controlled diet, C/BMP and magnesium in the am. Dispo: probable discharge to home Code Status: Full Code as discussed with patient and daughter, surrogate Scores Dimas' Criteria for PE Clinical signs and symptoms of DVT: No PE is #1 Dx or equally likely: No Heart rate > 100: No Immobilization at least 3 days or surg in previous 4 weeks: No History of PE or DVT: No Hemoptysis: No Malignancy w/Treatment within 6 months or palliative: Yes Wells' PE Score total: 1 Quality VTE Deep Vein Thrombosis/Pulmonary Embolism Present on Admission: No
[2020-04-09] MEDS: INSULIN ASPART 100 UNIT/ML INSULN PEN SUBCUT (23:39)
[2020-04-09] MEDS: INSULIN GLARGINE 100 UNIT/ML 3ML PEN SUBCUT (23:40)
--- NOTE | 2020-04-10 00:04 | PC.NURSE ---
shift note- Pt arrived to room 205 @ 2000 from ED via bed. Pt is Austrian speaking only and daughter Cheyenne rooming in and translating. A/Ox4, Denies pain at this time, but reports some chest pain intermittently, denies SOB, and nausea. Bt+, Bilat LE non pitting puffy edema, right toes intermittent numbness. 1PA FWW to toilet to unrnate 400ml clear yellow urine @ 2200. New orders for novolog insulin per SS, and Lantus @ HS 5 units. BG @ 2130-214, 2300 1 unit novolog and 5 units lantus given. Pt reports takes ibuprofen 600mg in am for joint pain to hip bilat. Provided with snacks and hot chamomile tea, water, and DC's saline fluids that pt came up with from ED. Call light in reach.
[2020-04-10 00:20] VITALS: BP 113/63; PULSE 80; RESP 12; TEMP 36.8; O2SAT 96
--- NOTE | 2020-04-10 00:52 | PC.NURSE ---
Addendum entered by Ariella Womack R.N. 04/10/20 06:33: When up to bathroom with walker and SBA. Has intermittent cramping pains in bilateral LE /buttocks when walking and needs to stop and bend over until pain passes. Daughter reports this has been happening along with dizziness for past 2 months. Medicated with Ibuprofen per patient request. Original Note: Patient seen and assessed at 0002. Is alert and oriented per daughter; patient is Scottish speaking and daughter in room and translating. [place] but did not bring hearing aids with. Breath sounds CTA with RA sat of 96%. HRR. Denies nausea. BT present and abdomen is soft. Denies dysuria, frequency or urgency with urination. Able to turn self in bed. Due to lower extremity weakness and some dizziness when up is being assisted to bathroom with walker and 1 assist. Denies pain. Does have some chronic numbness in right 4th/5th toes. Fall risk score is high but daughter is in room and states bed alarm is not needed as patient will call daughter for assist.
[2020-04-10] MEDS: IBUPROFEN 600 MG TABLET PO (05:58)
[2020-04-10 06:06] LABS: Hematocrit 31.6 % (36-46); Hemoglobin 10.3 g/dL (12.0-16.0); Mean Corpuscular HGB Conc 32.6 % (30-36); Mean Corpuscular Hemoglobin 33.2 PG (26-34); Mean Corpuscular Volume 101.7 fL (80-100); Platelet Count 136 X10^3/uL (150-400); Red Blood Cell Count 3.11 X10^6/uL (4.0-5.2); Red Cell Distribution Width 16.1 % (11.6-14.8); White Blood Cell Count 5.8 X10^3/uL (4.5-11.0)
[2020-04-10 06:23] LABS: Add Manual Diff / Slide Review YES
[2020-04-10 06:35] LABS: BUN Creatinine Ratio 28.1 (6-22); Blood Urea Nitrogen 16 mg/dL (7-17); Calcium 8.3 mg/dL (8.4-10.2); Carbon Dioxide 27 mmol/L (22-32); Chloride 106 mmol/L (98-107); Estimated Glomerular Filt Rate > 60.0 mL/min (>60); Glucose 127 mg/dL (80-110); HEMOLYSIS < 15 (0-50); Magnesium 1.8 mg/dL (1.6-2.3); Potassium 3.4 mmol/L (3.4-5.1); Sodium 137 mmol/L (137-145)
[2020-04-10 07:00] LABS: Thyroid Stimulating Hormone 5.46 uIU/mL (0.47-4.68)
[2020-04-10 07:02] LABS: Neutrophils Absolute Manual 3886 /uL (3000-5900); Total Cells Counted 100
[2020-04-10 07:04] LABS: Anisocytosis 1+
[2020-04-10 07:07] LABS: Burr Cells 1+; Macrocytosis 1+
[2020-04-10 07:50] VITALS: O2SAT 96
[2020-04-10 08:00] VITALS: BP 148/77; PULSE 78; RESP 16; TEMP 36.6; O2SAT 95
[2020-04-10] MEDS: ENOXAPARIN 40 MG/0.4 ML SYRINGE SUBCUT (08:58)
[2020-04-10] MEDS: predniSONE 20 MG TABLET PO (08:58)
[2020-04-10] MEDS: METFORMIN HCL 500 MG TABLET PO (08:58)
[2020-04-10] MEDS: SODIUM CHLORIDE 0.9% FLUSH 10 ML IV (10:06)
[2020-04-10] MEDS: POTASSIUM CHLORIDE 20 MEQ TAB 40 MEQ PO (10:06)
[2020-04-10] MEDS: predniSONE 5 MG TABLET 10 MG PO (10:06)
[2020-04-10 12:00] VITALS: BP 159/93; PULSE 87; RESP 18; TEMP 36.4; O2SAT 95
[2020-04-10] MEDS: INSULIN ASPART 100 UNIT/ML INSULN PEN SUBCUT (13:17)
--- NOTE | 2020-04-10 15:22 | PC.NURSE ---
Discharge: Pt is senegalese speaking only. Dtr translates for her. Also career law clerk is present at time of teaching. Pt is tolerating diet w/out problems. No use of pain meds, doesn't like to take anything. Vds w/out diff. Pt career law clerk shown how to draw up and give insulin. Caregiver gave the noon dose of ssc w/out problems. Discussed diabetes in general. Classes are available at the hospital which might be helpful for them. Discussed how to do a blood glucose. Dtr and career law clerk had numerous questions. Teaching time was 1 hr. They felt comfortable at time of discharge with diabetes care. Some of the rx were esent, also had hand rx which were given. After questions were answered to pt and the families satisfaction she was discharge home in their care.
--- NOTE | 2020-04-10 20:22 | P.DS_ITS ---
History of Present Illness History of Present Illness Chief complaint: symptomatic hyperglycemia Narrative: Lisset Nash is an 85 Ecuadorean speaking only female with ER +/TN +/HER-2 stage IV metastatic breast cancer (metastasis to the bone, lungs) who was seen at the [facility] and referred to this ED for management of elevated glucose likely secondary to her current chemotherapeutic regiman which includes high dose prednisone. She is currently on palbociclib and exemestane and in February of 2020 had developed a drug-induced pneumonitis. Her granddaughter who is also her caregiver translates and provides a history. She states that since starting on the prednisone patient was complaining of being thirsty all the time, peeing a lot, having ?murky? vision, right-sided numbness in her face, dry skin, and took her blood sugar and it was in the 500s this morning. She also complains of itchiness of the medial aspect of both forearms, and dry skin on her legs. She complains of right foot numbing. Review of [facility] indicates that she is currently having palliative radiation to the metastatic lesions in her spine. Granddaughter states that they want her to return for a full body PET scan prior to doing that. Due to the drug-induced pneumonitis likely from palbociclib, she was initiated on Methylprednisone 48 mg and then reduced to 32 mg. This was discontinued at the end of January. Apparently she has been on 40 mg of prednisone when seen at her oncologist's as of March 20 of last year. She was then put on prednisone 30 mg for 1 month and then followed by 20 mg for 1 month with discontinuance of palbociclib and she and to follow up with the same day chest CT. Apparently she had discontinued the prednisone due to weakness and fatigue. In the ED they did a chest x-ray which indicated right basilar airspace opacity consistent with atelectasis or pneumonia. She is afebrile, blood pressure 159/74, heart rate 90, respiratory rate 23, oxygen saturation 98% on room air, she weighs 68 kg with a BMI of 30.2. WBC is 9.1, RBC 3.26, hemoglobin 10.8, hematocrit 33.8, platelets 170, she has a mild left shift of 7189 neutrophil count, sodium 127, potassium 4.0, chloride 98, CO2 23, BUN 21, creatinine 0.66, GFR greater than 60, glucose is 155, her hemoglobin A1c is 10, she had an elevated lactate at 3.3, calcium is 8.9, magnesium 1.8, liver enzymes are within normal limits, mildly elevated lipase of 381, procalcitonin is negative, and she is spilling glucose into her urine. COVID-19 PCR is negative. Discharge Providers Provider Date of admission: 04/09/20 19:02 Discharge Date: 04/10/20 Primary care physician: Marlin Shafer PA-C Consults: 04/09/20 21:33 Consult to Dietitian, Adult Routine Comment: Reason For Exam: DM2 Steroid induced hypoglycemia Discharge provider: Prince Jonas MD Summary Hospital Course Discharge Diagnosis: 1. Uncontrolled type 2 diabetes 2. Metastatic breast cancer 3. History of drug induced pneumonitis Patient was admitted due to symptomatic hyperglycemia with sugars above 400 and complaints of polydipsia, polyuria and lightheadedness. Blood sugars came down significantly with IV hydration and initiation of low-dose insulin. Patient has been on prednisone for treatment of drug induced pneumonitis related to her diagnosis of metastatic breast cancer. She was provided teaching on monitoring blood sugars and insulin administration with insulin pen. Her daughter and granddaughter participated in the teaching and will assist her with these tasks. In addition, she was started on GI prophylaxis with famotidine because of taking prednisone and ibuprofen put her at increase risk of gastric ulcer. Status at Discharge Cognitive/behavioral status at discharge: oriented Functional status at discharge: independent ambulation Overall status at discharge: patient is progressing back to baseline Time Spent with Patient Time spent: Greater than 30 minutes Exam Vital Signs (past 8 hours): Oxygen Delivery Method Room Air Oxygen Flow Rate 0 Objective Labs Result Diagrams: 04/10/20 05:33 04/10/20 05:33 Labs: Laboratory Results - last 24 hr 04/09/20 04/10/20 04/10/20 16:08 05:33 05:33 WBC 5.8 RBC 3.11 L Hgb 10.3 L Hct 31.6 L MCV 101.7 H MCH 33.2 MCHC 32.6 RDW 16.1 H Plt Count 136 L Neut % (Auto) Not Reportable Lymph % (Auto) Not Reportable [place] % (Auto) Not Reportable Eos % (Auto) Not Reportable Baso % (Auto) Not Reportable Lymph # (Auto) Not Reportable [place] # (Auto) Not Reportable Baso # (Auto) Not Reportable Total Counted 100 Seg Neutrophils % 63.0 Band Neutrophils % 4.0 Lymphocytes % (Manual) 19.0 L Monocytes % (Manual) 8.0 Metamyelocytes % 3.0 H Myelocytes % 3.0 H Neutrophils # (Manual) 3886 RBC Morphology See below Anisocytosis 1+ H Macrocytosis 1+ H [place] Cells 1+ H Sodium 137 D Potassium 3.4 Chloride 106 Carbon Dioxide 27 BUN 16 Creatinine 0.57 Estimated GFR > 60.0 BUN/Creatinine Ratio 28.1 H Glucose 127 H D Calcium 8.3 L Magnesium 1.8 1.8 TSH 04/10/20 05:33 WBC RBC Hgb Hct MCV MCH MCHC RDW Plt Count Neut % (Auto) Lymph % (Auto) [place] % (Auto) Eos % (Auto) Baso % (Auto) Lymph # (Auto) [place] # (Auto) Baso # (Auto) Total Counted Seg Neutrophils % Band Neutrophils % Lymphocytes % (Manual) Monocytes % (Manual) Metamyelocytes % Myelocytes % Neutrophils # (Manual) RBC Morphology Anisocytosis Macrocytosis El Cells Sodium Potassium Chloride Carbon Dioxide BUN Creatinine Estimated GFR BUN/Creatinine Ratio Glucose Calcium Magnesium TSH 5.46 H PFSH Medical History Breast cancer Cholecystitis Surgical History History of appendectomy History of History of thoracentesis Family History Son Pancreatic cancer Brother Parkinson disease Alzheimer disease Social History household members: family Smoking Status: Never smoker alcohol intake: never substance use type: does not use Discharge Plan Discharge Plan Patient Disposition: Home Provider Discharge Comment: Follow up with your PCP for diabetes management. The Lantus insulin can be given anytime in the evening (whatever is most convenient). Adjust insulin by 2 units every few days to achieve fasting/non- fasting glucose less than 200. Avoid added sugars (pop soda, juices, sweets). Discharge orders & Medications Prescriptions: New Lantus Solostar U-100 Insulin 100 unit/mL (3 mL) Insulin Pen 5 unit SUBCUT 2100 Qty: 3 RF: 0 metformin 500 mg tablet 500 mg PO BID Qty: 60 RF: 0 (DME) pen needle, diabetic [BD Ultra-Fine Lucrecia Pen Needle] 32 gauge x 5/32 needle See Dose Instructions .ROUTE .MEDSUPPLY Qty: 30 RF: 0 famotidine [Pepcid] 20 mg tablet 20 mg PO DAILY Qty: 30 RF: 0 Continued ibuprofen 200 mg Tablet 800 mg PO BID RF: 0 prednisone 20 mg tablet 30 mg PO DAILY RF: 0 Follow up/Referrals: Marlin Shafer PA-C [Primary Care Provider] - Diet/Activity/Treatments Diet: Carb-consistent/Diabetic Visit Report/Discharge Packet Instructions: How to Check Your Blood Glucose, Complications of Type 2 Diabetes, Type 2 Diabetes, Carbohydrate-Counting Diet, How to Prevent Falls, DI for Prescription Opioid Use, Diabetes and Foot Care, How to Use an Insulin Pen Discharge Data Primary Care Provider: Marlin Shafer Attending Provider: Prince Jonas VTE Deep Vein Thrombosis/Pulmonary Embolism Present on Admission: No
== END 2020-04-10 14:00 | disposition home or self-care (01) ==
LOC: ED 18:57 → AC 19:03
PROVIDERS: Nurse Practitioner Family; Admitting Provider Internal Medicine; Emergency Provider Emergency Medicine; Family Provider Student in an Organized Health Care Education/Training Program; PCP Student in an Organized Health Care Education/Training Program; Referring Provider Emergency Medicine; Visit Provider Internal Medicine
DX: E11.65 Type 2 diabetes mellitus with hyperglycemia (principal); R42 Dizziness and giddiness; R07.9 Chest pain, unspecified; C50.919 Malignant neoplasm of unspecified site of unspecified female breast; C79.51 Secondary malignant neoplasm of bone; C78.00 Secondary malignant neoplasm of unspecified lung; Z20.822 Contact with and (suspected) exposure to COVID-19
CPT/HCPCS: 36415; 70450; 71045; 80048; 80053; 81001; 82962; 83036; 83605; 83690; 83735; 83880; 84145; 84443; 85007; 85025; 85610; 85730; 87040; 87635; 93005; 93010; 96360; 96361; 96372; 99284; C9803; G0378; J1650

== ENCOUNTER 2020-08-09 16:15 | Emergency (ER) | payer MEDICARE, MEDICAID, SELFPAY ==
[2020-04-09 20:14] VITALS: BMI 30.2
[2020-08-09] VITALS (14 sets, daily range): BP systolic 116–138; BP diastolic 56–65; PULSE 75–85; RESP 17–27; TEMP 35.9; O2SAT 93–97
--- NOTE | 2020-08-09 16:27 | DI.RAD.S_ITS ---
PROCEDURE: XR CHEST 1V INDICATIONS: chest pain TECHNIQUE: One view of the chest was acquired. COMPARISON: [facility] Outside Film, CT, CT CHEST ABDOMEN PELVIS WITH CONTRAST, 07/13/2020, 14:51. [facility], CT, CT ANGIO CHEST PE PROTOCOL, 01/12/2020, 21:28. [facility], CR, XR CHEST 1V, 04/09/2020, 15:49. [facility], CR, XR CHEST 1V, 08/26/2018, 12:36. FINDINGS: Surgical changes and devices: Left-sided port with the catheter tip projecting over the cavoatrial junction. Right axillary clips. Lungs and pleura: Low lung volumes likely due to inspiratory effort. Streaky and hazy opacity at the lower lobes bilaterally. Overall this is similar to the prior exam. No pleural effusions or pneumothorax. Mediastinum: Mediastinal contours appear unchanged. Fullness in the medial right upper lobe at the site of known mass. Heart size appears enlarged. Bones and chest wall: No suspicious bony lesions. Overlying soft tissues appear unremarkable. IMPRESSION: Streaky and hazy opacity at the lower lobes bilaterally similar to the prior exam. Findings could be due to scarring, atelectasis, and/or infiltrates. Fullness in the medial right upper lobe presumably due to known pulmonary mass. Repeat CT of the chest with IV contrast may be helpful for further evaluation Dictated by: Armando Almaraz M.D. on 08/09/2020 at 16:48 Approved by: Armando Almaraz M.D. on 08/09/2020 at 16:53
[2020-08-09 17:25] LABS: INR 0.9 (0.9-1.3); Prothrombin Time 10.1 SECONDS (10.1-12.7)
[2020-08-09 17:28] LABS: PTT Partial Thromboplastin Tim 17 SECONDS (26.4-36.2)
[2020-08-09 17:30] LABS: Add Manual Diff / Slide Review SLIDE REVIEW; Basophils Absolute Auto 0 /uL (0-100); Basophils Percent Auto 0.4 % (0-2); Eosinophils Absolute Auto 0 /uL (0-450); Eosinophils Percent Auto 0.2 % (2-4); Hematocrit 26.6 % (36-46); Lymphocytes Absolute Auto 1000 /uL (1100-4500); Lymphocytes Percent Auto 13.7 % (25-40); Mean Corpuscular Hemoglobin 30.9 PG (26-34); Mean Corpuscular Volume 90.9 fL (80-100); Monocytes Absolute Auto 500 /uL (0-900); Monocytes Percent Auto 7.1 % (3-14); Neutrophils Absolute Auto 5900 /uL (1500-7000); Neutrophils Percent Auto 78.6 % (50-75); Red Blood Cell Count 2.92 X10^6/uL (4.0-5.2); Red Cell Distribution Width 15.5 % (11.6-14.8); White Blood Cell Count 7.5 X10^3/uL (4.5-11.0)
--- NOTE | 2020-08-09 18:15 | PC.NURSE ---
pt will not allow lab to draw with a butterfly since her first specimen was hemolyzed. I asked pt to put her lidocaine cream on her left CW port site so we could assess. pt states via granddaughter that interprets that she must wait one hour until we can assess. pt also requested lidocaine by needle to numb the area. states its very tender and is bruised from when they flipped her port back. Dr. hernandez aware.
[2020-08-09 18:41] LABS: Platelet Count 124 X10^3/uL (150-400); RBC Morphology Normal Morphology
[2020-08-09 18:43] LABS: Platelet Estimate Decreased on smear; Platelet Morphology Comment NOTE
[2020-08-09] MEDS: LIDOCAINE 1% (PF) 2 ML (19:19)
--- NOTE | 2020-08-09 19:36 | ED_ITS ---
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 Her oncologist asked that she come in for further evaluation and PE study. She has had a increased cough for the past 5 days that she had attributed to her known metastatic lung disease. She does not describe fevers chills or weakness. She does note that with her chemotherapy yesterday she developed some chest pain numbness down her left arm 911 had been called but she declined transport to the ER at that point. The nurse from the [facility] called to check on her today and when the patient was still complaining of intermittent chest pain, dyspnea and dry cough they recommended again ER evaluation. She denies headache. She has chronic abdominal pain and known metastatic lesions to her liver. She denies flank pain or dysuria. She has not had vomiting or diarrhea. Related Data Home Medications Medication Instructions Recorded Confirmed ibuprofen 800 mg PO BID 04/09/20 04/09/20 prednisone 30 mg PO DAILY 04/09/20 04/10/20 Previous Rx's Medication Instructions Recorded famotidine [Pepcid] 20 mg PO DAILY #30 tab 04/10/20 insulin glargine [Lantus Solostar 5 unit SUBCUT 2100 #3 ml 04/10/20 U-100 Insulin] metformin 500 mg PO BID #60 tab 04/10/20 pen needle, diabetic [BD #30 each 04/10/20 Ultra-Fine Lucrecia Pen Needle] benzonatate [Tessalon Perles] 100 mg PO BID-TID PRN #14 cap 08/09/20 levofloxacin 750 mg PO DAILY #7 tab 08/09/20 Allergies Allergy/AdvReac Type Severity Reaction Status Date / Time Penicillins [PENICILLINS] Allergy Unknown Verified 04/09/20 19:29 Review of Systems Review of Systems Narrative: Remainder of complete review of systems is otherwise unremarkable except for that included in the HPI. Patient History Medical History Breast cancer Cholecystitis Surgical History History of appendectomy History of History of thoracentesis Family History Son Pancreatic cancer Brother Parkinson disease Alzheimer disease Social History household members: family Smoking Status: Never smoker alcohol intake: never substance use type: does not use Smoking Status: Never smoker alcohol intake frequency: holidays/special occasions only Substance Use Type: does not use Exam Narrative Exam Narrative: General: Chronically ill-appearing but in no acute distress. She is able to speak in full sentences and does have a dry cough HEENT: Moist mucous membranes, normal sclera with reactive pupils, Neck: No JVD, supple Respiratory: Lungs minor scattered wheeze but no significant rhonchi in consolidative findings.. Full and symmetrical air movement Cardiac: Regular rate and rhythm no murmurs no bruits Abdomen: Soft, tender in the right upper to mid quadrants without rebound or guarding, good bowel tones, no flank pain Skin: Thin but Warm and dry, no rashes Neurologic: Grossly neurologically intact with no obvious asymmetries or abnormalities Extremities: No trauma, well perfused Psych: Cooperative, normal speech fluency and affect Initial Vital Signs Initial Vital Signs: Vital Signs Temperature 96.6 F L 08/09/20 16:15 Pulse Rate 85 08/09/20 16:15 Respiratory Rate 18 08/09/20 16:15 Blood Pressure 121/58 L 08/09/20 16:15 Pulse Oximetry 96 08/09/20 16:15 Course Orders Ordered: ED Orders 08/09/20 16:27 XR chest 1V Stat EKG-12 Lead Stat 08/09/20 17:05 Complete Blood Count AUTO DIFF Stat Partial Thromboplastin Time Stat Prothrombin Time INR Stat 08/09/20 19:15 Comprehensive Metabolic Panel Stat Lipase Stat Troponin & CK Cardiac Panel Stat 08/09/20 19:38 CT angio chest PE protocol Stat Discontinued Medications Benzonatate (Benzonatate 100 Mg Capsule) 100 mg PO NOW ONE Stop: 08/09/20 22:24 Last Admin: 08/09/20 22:38 Dose: 100 mg Documented by: DEANDRA Levofloxacin (Levofloxacin 250 Mg Tablet) 750 mg PO NOW ONE Stop: 08/09/20 22:19 Last Admin: 08/09/20 22:37 Dose: 750 mg Documented by: DEANDRA Vital Signs Vital signs: Vital Signs - 8 hr 08/09/20 18:01 08/09/20 18:02 08/09/20 18:30 Pulse Rate 83 81 82 Respiratory Rate 18 Blood Pressure 125/59 L Pulse Oximetry 95 96 96 08/09/20 18:31 08/09/20 19:00 08/09/20 19:30 Pulse Rate 77 82 82 Respiratory Rate 26 H 22 Blood Pressure 116/56 L 131/65 133/61 Pulse Oximetry 95 93 96 08/09/20 20:00 08/09/20 20:01 08/09/20 20:40 Pulse Rate 75 75 81 Respiratory Rate 24 22 Blood Pressure 126/60 Pulse Oximetry 96 96 96 08/09/20 21:30 08/09/20 22:00 08/09/20 22:30 Pulse Rate 85 79 76 Respiratory Rate 23 17 27 H Blood Pressure Pulse Oximetry 93 97 08/09/20 22:42 Pulse Rate 82 Respiratory Rate 25 H Blood Pressure 138/63 Pulse Oximetry 97 MDM - Chest Pain Medical Records Data Attestation: I reviewed the patient's medical records. Lab Data Attestation: I reviewed the patient's lab results. Result diagrams: 08/09/20 17:05 08/09/20 19:15 Labs: Lab Results 08/09/20 08/09/20 08/09/20 Range/Units 17:05 17:05 19:15 WBC 7.5 (4.5-11.0) X10^3/uL RBC 2.92 L (4.0-5.2) X10^6/uL Hgb 9.0 L (12.0-16.0) g/dL Hct 26.6 L (36-46) % MCV 90.9 (80-100) fL MCH 30.9 (26-34) PG MCHC 34.0 (30-36) % RDW 15.5 H (11.6-14.8) % Plt Count 124 L (150-400) X10^3/uL Neut % (Auto) 78.6 H (50-75) % Lymph % (Auto) 13.7 L (25-40) % Wise % (Auto) 7.1 (3-14) % Eos % (Auto) 0.2 L (2-4) % Baso % (Auto) 0.4 (0-2) % Neut # (Auto) 5900 (6932-8580) /uL Lymph # (Auto) 1000 L (1954-5709) /uL Wise # (Auto) 500 (0-900) /uL Eos # (Auto) 0 (0-450) /uL Baso # (Auto) 0 (0-100) /uL Platelet Estimate Decreased on smear Plt Morphology Comment Note RBC Morphology Normal morphology PT 10.1 (10.1-12.7) SECONDS INR 0.9 (0.9-1.3) APTT 17 L D (26.4-36.2) SECONDS Sodium 136 L (137-145) mmol/L Potassium 3.5 (3.4-5.1) mmol/L Chloride 104 (98-107) mmol/L Carbon Dioxide 21 L (22-32) mmol/L BUN 17 (7-17) mg/dL Creatinine 0.60 (0.52-1.04) mg/dL Estimated GFR > 60.0 (>60) mL/min BUN/Creatinine Ratio 28.3 H (6-22) Glucose 114 H (80-110) mg/dL Calcium 9.4 (8.4-10.2) mg/dL Total Bilirubin 0.2 (0.2-1.3) mg/dL AST 29 (14-36) IU/L ALT 20 (<35) IU/L Alkaline Phosphatase 54 (38-126) U/L Total Creatine Kinase 26 L (30-135) U/L CK-MB (CK-2) TNP CK-MB (CK-2) Rel Index TNP Troponin I < 0.012 (0.01-0.034) ng/mL Total Protein 6.1 L (6.3-8.2) g/dL Albumin 3.8 (3.5-5.0) g/dL Globulin 2.3 (1.7-4.1) g/dL Albumin/Globulin Ratio 1.7 (1.0-2.8) Lipase 200 (23-300) U/L Imaging Data Chest x-ray: Radiologist's Impression: FINDINGS: Surgical changes and devices: Left-sided port with the catheter tip projecting over the cavoatrial junction. Right axillary clips. Lungs and pleura: Low lung volumes likely due to inspiratory effort. Streaky and hazy opacity at the lower lobes bilaterally. Overall this is similar to the prior exam. No pleural effusions or pneumothorax. Mediastinum: Mediastinal contours appear unchanged. Fullness in the medial right upper lobe at the site of known mass. Heart size appears enlarged. Bones and chest wall: No suspicious bony lesions. Overlying soft tissues appear unremarkable. IMPRESSION: Streaky and hazy opacity at the lower lobes bilaterally similar to the prior exam. Findings could be due to scarring, atelectasis, and/or infiltrates. Fullness in the medial right upper lobe presumably due to known pulmonary mass. Repeat CT of the chest with IV contrast may be helpful for further evaluation Dictated by: Armando Almaraz M.D. on 08/09/2020 at 16:48 CT scan - chest: Radiologist's Impression: FINDINGS: Image quality: Excellent. Pulmonary arteries: Pulmonary arteries are normal in size, and demonstrate no intraluminal filling defects to suggest central pulmonary embolism. Lungs and pleura: There is a 2.6 cm mass in the right upper lobe medially, unchanged in size compared to the last outside CT on 07/13/2020. A 5 mm nodule in the right upper lobe is also stable. There is right lower lobe infiltrate and consolidation suspicious for pneumonia. Bilateral subpleural septal thickening No pleural effusions or pneumothorax. Central and peripheral airways are patent. Mediastinum: Heart size is normal, without pericardial effusion. No mediastinal or hilar adenopathy. Thoracic aorta is normal in caliber and enhancement. Esophagus is normal in caliber. Small hiatal hernia. Bones and chest wall: There are multiple sclerotic bone lesions consistent with osseous metastases. Ribs and thoracic spine appear intact throughout. Thyroid gland is normal. No axillary or supraclavicular adenopathy. Abdomen: Visualized upper abdominal solid organs appear normal in the early arterial phase of enhancement. IMPRESSION: 1. No evidence for pulmonary embolism. 2. Stable right lung nodules suspicious for pulmonary metastasis. 3. Right lower lobe infiltrate and consolidation suspicious for pneumonia. 4. Bilateral subpleural septal thickening. There may be superimposed mild pulmonary edema. 5. Sclerotic bone lesions are seen consistent with osseous metastases. Dictated by: Amelie Soliman M.D. on 08/09/2020 at 20:55 [facility] Narrative Medical decision making narrative: 85-year-old woman with metastatic breast cancer who did not tolerate her recent chemotherapy, presumed palliative, well and has had intermittent chest pain with cough over last 2-3 days. She was not concerned that the cough was changing or any different than her cough that she has attributed to her metastatic disease. Chest x-ray suggests right lower lobe consolidation and CT scan done to rule out pulmonary embolism confirms the pne umonia in the right lower lobe with absence of pulmonary embolism. At this point she is afebrile, no evidence of sepsis, not requiring any oxygen and has a safe home disposition with family to care for her. Will place her on oral Levaquin because of that is excellent bio availability and she does not meet criteria for hospitalization at this time. There is no evidence of acute coronary syndrome, pneumothorax or other immediately life-threatening diagnosis. She is safe for home discharge and will follow-up with her cancer care providers Discharge Plan Departure Patient Disposition: Home Clinical Impression: Metastatic breast cancer Pneumonia Qualifiers: Pneumonia type: due to unspecified organism Laterality: right Lung location: lower lobe of lung Qualified Code(s): J18.9 - Pneumonia, unspecified organism Instructions: DI for Pneumonia -- Adult Activity Restrictions/Additional Instructions: Thank you for coming in today It looks like you are developing a pneumonia in the right lower lobe of your lung. Fortunately, you do not have evidence of overwhelming infection and do not need to be admitted to the hospital for this. The CT scan of your lung did not show a blood clot and did not show any progression of the metastatic disease that is in your lung. I have given you a prescription for Levaquin, an antibiotic, to take for an additional 7 days. Prescriptions have been electronically transmitted to [facility] in [place] In the emergency room we gave you a Tessalon Perles to see if it would help with the cough. If you found that it did, please fill that prescription and use it to some pressure cough. Today, I did not appreciate any wheezing on your exam and do not think that we need to add steroids because of reactive lung disease. 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 Please give your school occupational therapist call tomorrow and see if they think steroids should be restarted If you have worsening symptoms please feel free to return to the emergency department Prescriptions: New levofloxacin 750 mg tablet 750 mg PO DAILY Qty: 7 RF: 0 benzonatate [Tessalon Perles] 100 mg capsule 100 mg PO BID-TID PRN (Reason: cough) Qty: 14 RF: 0 No Action ibuprofen 200 mg Tablet 800 mg PO BID RF: 0 prednisone 20 mg tablet 30 mg PO DAILY RF: 0 Lantus Solostar U-100 Insulin 100 unit/mL (3 mL) Insulin Pen 5 unit SUBCUT 2100 Qty: 3 RF: 0 metformin 500 mg tablet 500 mg PO BID Qty: 60 RF: 0 (DME) pen needle, diabetic [BD Ultra-Fine Lucrecia Pen Needle] 32 gauge x 5/32 needle See Dose Instructions .ROUTE .MEDSUPPLY Qty: 30 RF: 0 famotidine [Pepcid] 20 mg tablet 20 mg PO DAILY Qty: 30 RF: 0 Referrals: Marlin Shafer PA-C [Primary Care Provider] -
--- NOTE | 2020-08-09 19:38 | DI.CT.S_ITS ---
PROCEDURE: CT ANGIO CHEST PE PROTOCOL INDICATIONS: chest pressure after new chemo for met breast ca TECHNIQUE: After the administration of intravenous contrast, 2 mm thick sections acquired from the pulmonary apices to the posterior costophrenic angles. 3-dimensional maximum intensity projection (MIP) coronal and sagittal reformats were then acquired through the thorax. For radiation dose reduction, the following was used: automated exposure control, adjustment of mA and/or kV according to patient size. COMPARISON: [facility], CR, XR CHEST 1V, 08/09/2020, 16:38. [facility] Outside Film, CT, CT CHEST ABDOMEN PELVIS WITH CONTRAST, 07/13/2020, 14:51. [facility], CT, CT ANGIO CHEST PE PROTOCOL, 01/12/2020, 21:28. FINDINGS: Image quality: Excellent. Pulmonary arteries: Pulmonary arteries are normal in size, and demonstrate no intraluminal filling defects to suggest central pulmonary embolism. Lungs and pleura: There is a 2.6 cm mass in the right upper lobe medially, unchanged in size compared to the last outside CT on 07/13/2020. A 5 mm nodule in the right upper lobe is also stable. There is right lower lobe infiltrate and consolidation suspicious for pneumonia. Bilateral subpleural septal thickening No pleural effusions or pneumothorax. Central and peripheral airways are patent. Mediastinum: Heart size is normal, without pericardial effusion. No mediastinal or hilar adenopathy. Thoracic aorta is normal in caliber and enhancement. Esophagus is normal in caliber. Small hiatal hernia. Bones and chest wall: There are multiple sclerotic bone lesions consistent with osseous metastases. Ribs and thoracic spine appear intact throughout. Thyroid gland is normal. No axillary or supraclavicular adenopathy. Abdomen: Visualized upper abdominal solid organs appear normal in the early arterial phase of enhancement. IMPRESSION: 1. No evidence for pulmonary embolism. 2. Stable right lung nodules suspicious for pulmonary metastasis. 3. Right lower lobe infiltrate and consolidation suspicious for pneumonia. 4. Bilateral subpleural septal thickening. There may be superimposed mild pulmonary edema. 5. Sclerotic bone lesions are seen consistent with osseous metastases. Dictated by: Amelie Soliman M.D. on 08/09/2020 at 20:55 Approved by: Amelie Soliman M.D. on 08/09/2020 at 21:02
[2020-08-09 19:42] LABS: Alanine Aminotransferase 20 IU/L (<35); Albumin 3.8 g/dL (3.5-5.0); Albumin Globulin Ratio 1.7 (1.0-2.8); Alkaline Phosphatase 54 U/L (38-126); Aspartate Aminotransferase 29 IU/L (14-36); BUN Creatinine Ratio 28.3 (6-22); Bilirubin Total 0.2 mg/dL (0.2-1.3); Blood Urea Nitrogen 17 mg/dL (7-17); Calcium 9.4 mg/dL (8.4-10.2); Carbon Dioxide 21 mmol/L (22-32); Chloride 104 mmol/L (98-107); Creatine Kinase 26 U/L (30-135); Estimated Glomerular Filt Rate > 60.0 mL/min (>60); Globulin 2.3 g/dL (1.7-4.1); Glucose 114 mg/dL (80-110); HEMOLYSIS < 15 (0-50); Lipase 200 U/L (23-300); Potassium 3.5 mmol/L (3.4-5.1); Sodium 136 mmol/L (137-145); Total Protein 6.1 g/dL (6.3-8.2)
[2020-08-09 19:53] LABS: Troponin I < 0.012 ng/mL (0.01-0.034)
[2020-08-09] MEDS: levoFLOXacin 250 MG TABLET 750 MG PO (22:37)
[2020-08-09] MEDS: BENZONATATE 100 MG CAPSULE PO (22:38)
== END 2020-08-09 22:45 | disposition home or self-care (01) ==
PROVIDERS: Emergency Medicine; Emergency Provider Emergency Medicine; Family Provider Student in an Organized Health Care Education/Training Program; PCP Student in an Organized Health Care Education/Training Program
DX: J18.9 Pneumonia, unspecified organism (principal); C50.919 Malignant neoplasm of unspecified site of unspecified female breast; R07.9 Chest pain, unspecified
CPT/HCPCS: 36415; 71045; 71275; 80053; 82550; 83690; 84484; 85025; 85610; 85730; 93005; 93010; 99284